=== PATIENT | male | born 1965 | race Caucasian/White ===

== ENCOUNTER 2017-08-05 01:31 | Emergency (ER) | payer OTHER ==
[~2017-08-05 01:31] MED LIST: CEPH500C3 PO; CLIN150 PO
[2017-08-05 01:36] VITALS: BP 132/75; PULSE 78; RESP 17; TEMP 97.7; O2SAT 97
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
== END 2017-08-05 07:07 | disposition home or self-care (01) ==
LOC: NEPD 01:31
DX: S20.211A Contusion of right front wall of thorax, initial encounter (principal); S00.81XA Abrasion of other part of head, initial encounter; F10.129 Alcohol abuse with intoxication, unspecified; F17.200 Nicotine dependence, unspecified, uncomplicated; V49.40XA Driver injured in collision with unspecified motor vehicles in traffic accident, initial encounter
CPT/HCPCS: 70450; 71045; 99284

== ENCOUNTER 2017-10-31 14:55 | Inpatient (IN) | payer SELFPAY ==
[~2017-10-31] VITALS: Ht 172.7 cm; Wt 74.9 kg
[2017-10-31 15:13] VITALS: BP 162/93; PULSE 102; RESP 18; TEMP 98.4; O2SAT 99
--- NOTE | 2017-10-31 15:54 | RADRPT ---
EXAM DATE/TIME: 10/31/2017 15:25 [facility] COMPARISON: No previous studies available for comparison. INDICATIONS : Left foot pain, walked with slides on. MEDICAL HISTORY : None. SURGICAL HISTORY : None. ENCOUNTER: Initial ACUITY: 1 day PAIN SCORE: 6/10 LOCATION: Left foot FINDINGS: There is an acute appearing, centrally non-displaced intra-articular fracture involving the base of t he great toe proximal phalanx. There appears to be a laceration of the overlying skin. There is dorsa l predominant forefoot soft tissue swelling. CONCLUSION: Intra-articular fracture of the great toe distal phalanx, minimally displaced. Davide Hernandez MD on October 31, 2017 at 15:50 Board Certified Radiologist. This report was verified electronically.
[2017-10-31] MEDS ORDERED: VANCOMYCIN INJ 1,250 MG in SODIUM CHLOR 0.9% 250 ML INJ 250 ML IV ONE (16:00)
[2017-10-31] MEDS ORDERED: MORPHINE SULFATE 4 MG/ML INJ IV PUSH ONE (16:00)
[2017-10-31 16:27] LABS: AUTOMATED NEUTROPHIL # 5.3 TH/MM3 (1.8-7.7); BASOPHIL % 0.6 % (0.0-2.0); EOSINOPHIL # 0.1 TH/MM3 (0-0.4); EOSINOPHIL % 1.8 % (0.0-4.0); HEMATOCRIT 40.1 % (39.0-51.0); HEMOGLOBIN 13.6 GM/DL (13.0-17.0); LYMPH % 19.8 % (9.0-44.0); LYMPHOCYTE # 1.5 TH/MM3 (1.0-4.8); MEAN CELL VOLUME 91.3 FL (80.0-100.0); MEAN CORPUSCULAR HEMOGLOBIN 30.9 PG (27.0-34.0); MEAN CORPUSCULAR HGB CONC 33.9 % (32.0-36.0); MEAN PLATELET VOLUME 8.7 FL (7.0-11.0); MONO % 8.8 % (0.0-8.0); MONOCYTE # 0.7 TH/MM3 (0-0.9); PLATELET COUNT 150 TH/MM3 (150-450); RED BLOOD COUNT 4.39 MIL/MM3 (4.50-5.90); RED CELL DISTRIBUTION WIDTH 13.6 % (11.6-17.2); WHITE BLOOD COUNT 7.7 TH/MM3 (4.0-11.0)
[2017-10-31 16:40] LABS: PROTHROMBIN TIME - PATIENT 10.5 SEC (9.8-11.6)
[2017-10-31 16:48] LABS: BICARBONATE 23.2 MEQ/L (21.0-32.0); C-REACTIVE PROTEIN 3.1 MG/DL (0.00-0.30); CALCIUM 8.6 MG/DL (8.5-10.1); CREATININE 0.79 MG/DL (0.60-1.30)
--- NOTE | 2017-10-31 16:57 | PD ---
HPI Chief Complaint: Skin Problem Time Seen by Provider: 15:29 Travel History International Travel<30 days: No Contact w/Intl Traveler<30days: No Traveled to known affect area: No History of Present Illness HPI Patient is a 52 year old male who comes in due to redness, swelling, pain to his left first toe. He says two weeks ago he was wearing sandals and he thinks he slipped and they cut his toe. He says that Monday he started noticing redness to the area and then noticed pus coming from the wound. He denies fever or chills. He has not taken anything for pain. He has not washed his feet since sustaining the wound. He denies chest pain or SOB. Severity is mild to moderate. PFSH Past Medical History Diminished Hearing: No Immunizations Current: Yes Tetanus Vaccination: < 5 Years Influenza Vaccination: No Social History Alcohol Use: Yes (beer 2-3xs / week ) Tobacco Use: Yes (1PPD ) Substance Use: No Allergies-Medications (Allergen,Severity, Reaction): Coded Allergies: shellfish derived (Unverified Adverse Reaction, Intermediate, Nausea/ Vomiting, 03/14/17) Reported Meds & Prescriptions Reported Meds & Active Scripts Active No Active Prescriptions or Reported Medications Review of Systems Except as stated in HPI: all other systems reviewed are Neg General / Constitutional: No: Fever, Chills HENT: No: Headaches, Lightheadedness Cardiovascular: No: Chest Pain or Discomfort Respiratory: No: Shortness of Breath Gastrointestinal: No: Nausea, Vomiting Musculoskeletal: Positive: Edema, Pain Skin: Positive Change in Pigmentation Neurologic: No: Weakness, Dizziness Physical Exam Narrative GENERAL: Awake and alert, in no acute distress. SKIN: Focused skin assessment warm/dry. HEAD: Atraumatic. Normocephalic. EYES: Pupils equal and round. No scleral icterus. ENT: Mucous membranes pink and moist. NECK: Trachea midline. No JVD. CARDIOVASCULAR: Regular rate and rhythm. No murmur appreciated. RESPIRATORY: No accessory muscle use. Clear to auscultation. Breath sounds equal bilaterally. GASTROINTESTINAL: Abdomen soft, non-tender, nondistended. Hepatic and splenic margins not palpable. MUSCULOSKELETAL: No obvious deformities. No clubbing. No cyanosis. Edema of the left foot. linear wound across the MTP with erythema, warmth and sanguinous fluid production. Mild erythema to the dorsum of the foot in a linear pattern. Pedal pulse intact. NEUROLOGICAL: Awake and alert. No obvious cranial nerve deficits. Motor grossly within normal limits. Normal speech. PSYCHIATRIC: Appropriate mood and affect; insight and judgment normal. Data Data Last Documented VS Vital Signs Date Time Temp Pulse Resp B/P (MAP) Pulse Ox O2 Delivery O2 Flow Rate FiO2 10/31/17 16:34 18 10/31/17 15:13 98.4 102 162/93 (116) 99 Orders Orders Complete Blood Count With Diff (10/31/17 15:15) Basic Metabolic Panel (Bmp) (10/31/17 15:15) Act Partial Throm Time (Ptt) (10/31/17 15:15) Prothrombin Time / Inr (Pt) (10/31/17 15:15) C-Reactive Protein (Crp) (10/31/17 15:15) Westergren Sedimentation Rate (10/31/17 15:15) Foot, Complete (Hmt8pwd) (10/31/17 ) Vancomycin Inj (Vancomycin Inj) (10/31/17 16:00) Morphine Inj (Morphine Inj) (10/31/17 16:00) Wound Culture And Gram Stain (10/31/17 15:50) Consult Podiatry (10/31/17 ) Mri Foot W&W/O Contrast (10/31/17 ) (Hub Use Only)Inp Phy Cons/Ref (10/31/17 ) Admit Order (Ed Use Only) (10/31/17 ) Admit To Inpatient (10/31/17 ) Vital Signs (Adult) Q4H (10/31/17 17:45) Activity Oob With Assistance (10/31/17 17:45) Sodium Chloride 0.9% Flush (Ns Flush) (10/31/17 17:45) Sodium Chloride 0.9% Flush (Ns Flush) (10/31/17 21:00) Basic Metabolic Panel (Bmp) (11/01/17 06:00) Complete Blood Count With Diff (11/01/17 06:00) Case Management Consult (10/31/17 17:45) Naloxone Inj (Narcan Inj) (10/31/17 17:45) Inpatient Certification (10/31/17 ) Vancomycin Consult Pharmacy (Vancomycin (10/31/17 17:45) Piperacil-Tazo 4.5 Gm Premix (Zosyn 4.5 (10/31/17 20:00) Labs Laboratory Tests Test 10/31/17 16:00 White Blood Count 7.7 TH/MM3 Red Blood Count 4.39 MIL/MM3 Hemoglobin 13.6 GM/DL Hematocrit 40.1 % Mean Corpuscular Volume 91.3 FL Mean Corpuscular Hemoglobin 30.9 PG Mean Corpuscular Hemoglobin Concent 33.9 % Red Cell Distribution Width 13.6 % Platelet Count 150 TH/MM3 Mean Platelet Volume 8.7 FL Neutrophils (%) (Auto) 69.0 % Lymphocytes (%) (Auto) 19.8 % Monocytes (%) (Auto) 8.8 % Eosinophils (%) (Auto) 1.8 % Basophils (%) (Auto) 0.6 % Neutrophils # (Auto) 5.3 TH/MM3 Lymphocytes # (Auto) 1.5 TH/MM3 Monocytes # (Auto) 0.7 TH/MM3 Eosinophils # (Auto) 0.1 TH/MM3 Basophils # (Auto) 0.0 TH/MM3 CBC Comment DIFF FINAL Differential Comment Erythrocyte Sedimentation Rate 38 mm/hr Prothrombin Time 10.5 SEC Prothromb Time International Ratio 1.0 RATIO Activated Partial Thromboplast Time 29.2 SEC Blood Urea Nitrogen 9 MG/DL Creatinine 0.79 MG/DL Random Glucose 93 MG/DL Calcium Level 8.6 MG/DL Sodium Level 138 MEQ/L Potassium Level 3.6 MEQ/L Chloride Level 107 MEQ/L Carbon Dioxide Level 23.2 MEQ/L Anion Gap 8 MEQ/L Estimat Glomerular Filtration Rate 103 ML/MIN C-Reactive Protein 3.10 MG/DL [facility] Medical Decision Making Medical Screen Exam Complete: Yes Emergency Medical Condition: Yes Medical Record Reviewed: Yes Differential Diagnosis Cellulitis versus osteomyelitis versus gangrene Narrative Course Patient is a 52 year old male who comes in complaining of pain and swelling to his left first toe. Exam shows swelling and erythema to the left first toe. IV established, labs sent. Labs show elevated ESR. XR shows a fracture beneath the area of infection. Dr. Almaraz of podiatry consulted due to concerns of osteomyelitis vs open fracture. Given IV antibiotics. will be admitted for further management. Diagnosis Primary Impression: Cellulitis of foot Admitting Information Admitting Physician Requests: Admit Scripts No Active Prescriptions or Reported Meds Umu Sheth MD Oct 31, 2017 16:57
[2017-10-31] MEDS ORDERED: NALOXONE HCL 0.4 MG/ML AMP IV PUSH PRN (17:45)
[2017-10-31] MEDS ORDERED: Vancomycin Consult Pharmacy 1 EA OTHER SCH (17:45)
[2017-10-31] MEDS ORDERED: SODIUM CHLORIDE 0.9% FLUSH 10 ML FLUSH IV FLUSH PRN (17:45)
[2017-10-31] MEDS ORDERED: GADODIAMIDE PF 287 MG/ML 5 ML VIAL (for RAD MRI) IVCONTRAST ONE (19:09)
[2017-10-31 19:33] VITALS: BP 135/77; PULSE 84; RESP 18; O2SAT 98
[2017-10-31] MEDS: PIPERACIL-TAZO 4.5 GM PREMIX 100 ML IV SCH (19:33)
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
--- NOTE | 2017-10-31 20:03 | RADRPT ---
EXAM DATE/TIME: 10/31/2017 18:42 [facility] COMPARISON: No previous studies available for comparison. INDICATIONS : Osteomyelitis. Laceration of left great toe. CONTRAST: 15 cc Omniscan (gadodiamide) IV MEDICAL HISTORY : None. SURGICAL HISTORY : None. ENCOUNTER: Subsequent ACUITY: 2 weeks PAIN SCORE: 3/10 LOCATION: Left great toe. TECHNIQUE: Multiplanar, multisequence MRI examination was performed without contrast and after the intravenous a dministration of gadolinium. FINDINGS: There is a fracture of the distal phalanx of the great toe with associated marrow edema and also james ow enhancement postcontrast. There is also small amount of marrow edema in the distal portion of the proximal phalanx probably from a bone contusion. There is subcutaneous edema in the foot especially i n the forefoot on the dorsum of the foot. CONCLUSION: 1. Marrow edema and enhancement in the fractured distal phalanx of the great toe and probable contusi on in the distal portion of the proximal phalanx. Difficult to assess for osteomyelitis given the pre sence of the fracture which is often associated with edema and enhancement. However there is soft tis sarika swelling of the foot and subcutaneous edema space are prominent over the dorsum of the foot. Shai Gregg MD on October 31, 2017 at 19:58 Board Certified Radiologist. This report was verified electronically.
[2017-10-31] MEDS: SODIUM CHLORIDE 0.9% FLUSH 10 ML FLUSH IV FLUSH SCH (21:00)
[2017-10-31 23:38] VITALS: BP 140/89; PULSE 82; RESP 16; TEMP 98.8; O2SAT 98
[2017-11-01] VITALS (8 sets, daily range): BP systolic 113–138; BP diastolic 69–88; PULSE 64–86; RESP 16–18; TEMP 97.6–99; O2SAT 93–99
[2017-11-01] MEDS: PIPERACIL-TAZO 4.5 GM PREMIX 100 ML IV SCH ×4 (02:17→20:03)
[2017-11-01] MEDS ORDERED: VANCOMYCIN INJ 900 MG in SODIUM CHLOR 0.9% 250 ML INJ 250 ML IV SCH (04:00)
[2017-11-01 07:03] LABS: AUTOMATED NEUTROPHIL # 5.1 TH/MM3 (1.8-7.7); BASOPHIL % 0.5 % (0.0-2.0); EOSINOPHIL # 0.2 TH/MM3 (0-0.4); EOSINOPHIL % 2.2 % (0.0-4.0); HEMATOCRIT 37.8 % (39.0-51.0); HEMOGLOBIN 12.7 GM/DL (13.0-17.0); LYMPH % 21.3 % (9.0-44.0); LYMPHOCYTE # 1.6 TH/MM3 (1.0-4.8); MEAN CELL VOLUME 92.1 FL (80.0-100.0); MEAN CORPUSCULAR HGB CONC 33.7 % (32.0-36.0); MEAN PLATELET VOLUME 9.3 FL (7.0-11.0); MONO % 10.1 % (0.0-8.0); MONOCYTE # 0.8 TH/MM3 (0-0.9); NEUT % 65.9 % (16.0-70.0); PLATELET COUNT 141 TH/MM3 (150-450); RED BLOOD COUNT 4.11 MIL/MM3 (4.50-5.90); RED CELL DISTRIBUTION WIDTH 13.8 % (11.6-17.2); WHITE BLOOD COUNT 7.7 TH/MM3 (4.0-11.0)
[2017-11-01 07:26] LABS: BICARBONATE 24.7 MEQ/L (21.0-32.0); CALCIUM 8.5 MG/DL (8.5-10.1); CREATININE 0.67 MG/DL (0.60-1.30)
--- NOTE | 2017-11-01 08:31 | MB ---
cc: Keron Almaraz DPM DATE: 11/01/2017 REASON FOR CONSULTATION: Left foot fracture, laceration infection. HISTORY OF PRESENT ILLNESS: This is a 52-year-old male who reported 2 weeks ago walking in sandals for a very long period of time causing an abrasion. Within the last 5-7 days, he had significant redness and pain. He was trying a topical antibiotic cream and it was not working and continued to worsen. Upon being evaluated in the ED, there is noted to be a fracture and infection, which is worrisome for osteomyelitis. PAST MEDICAL HISTORY: The patient denies. PAST SURGICAL HISTORY: Denies. ALLERGIES: SHELLFISH, POSSIBLE IODINE. SOCIAL HISTORY: He smokes about a pack a day. He drinks alcohol 2-3 times a week. He denies drug use. INPATIENT MEDICATIONS: He is receiving vancomycin and Zosyn. Please see complete medication list in chart. PHYSICAL EXAMINATION: VITAL SIGNS: Temperature is 98.3, pulse rate 86, respiratory rate 18, blood pressure 133/79. He is sating 95% on room air. GENERAL: This is alert and oriented male seen bedside exhibiting nonlabored respirations. He appears to have a nonproductive cough. EXTREMITIES: Left lower extremity is examined. There is noted to be an eschar with significant periwound erythema and edema at the dorsal aspect of the left hallux with mild redness that extends to the dorsum of the foot. There is pain upon attempting range of motion. There is no soft tissue crepitus noted. There is no odor. Pedal pulses are fully palpable. Sensation appears to be intact to light touch and deep pressure. No malalignment or instability noted. LABORATORY FINDINGS: White blood cells 7.7, hemoglobin and hematocrit 12 and 37, platelet count 141. ESR 38. Chem-7: Sodium 140, potassium 3.6, chloride 107, CO2 of 24.7, BUN is 8, creatinine 0.67, random glucose is 79. Coagulation profile: PT 10.5, INR 1.0. IMAGING STUDIES: X-ray of the foot: An intra-articular fracture involving the great toe distal phalanx, minimally displaced. Foot MRI: Marrow edema and enhancement of the fracture site of the great toe, probable contusion. Difficult to assess if osteomyelitis within the fracture. ASSESSMENT AND PLAN: Left hallux abrasion, cellulitis, fracture, possible osteomyelitis. The plan incision and drainage, debridement with bone biopsy to take place tomorrow. The patient will be ordered n.p.o. after midnight tonight. Continue IV antibiotics. The patient was counseled on the need for smoking cessation to increase healing. The patient was educated on risks and benefits of surgery including, but not limited to, need for more surgery at a later date, need for long-term IV antibiotics and possible complications of long-term IV antibiotics. The patient agrees. I will see the patient for surgery tomorrow approximately noon. CASPER Aguilar/ELI , 08:14 AM , 08:30 AM
--- NOTE | 2017-11-01 08:35 | HHI.PR ---
Subjective Remarks This is a pleasant 52 y/o Male who came to ER with Left Big toe cellulitis, Tobacco dependence of One pack of cigarettes daily, alcohol abuse EtOH Occasional, Seen in his bedroom, Podiatry specialist following and will perform I and D, with Bone biopsy for tomorrow. no nausea, vomit or diarrhea. Objective Vital Signs Date Time Temp Pulse Resp B/P (MAP) Pulse Ox O2 Delivery O2 Flow Rate FiO2 11/01/17 07:10 98.3 86 18 133/79 (97) 95 11/01/17 04:43 65 11/01/17 04:03 99.0 65 17 127/72 (90) 96 11/01/17 00:01 77 10/31/17 23:38 98.8 82 16 140/89 (106) 98 10/31/17 19:33 84 18 135/77 (96) 98 Room Air 10/31/17 16:34 18 10/31/17 15:13 98.4 102 18 162/93 (116) 99 I/O 10/31/17 10/31/17 10/31/17 11/01/17 11/01/17 11/01/17 07:00 15:00 23:00 07:00 15:00 23:00 Intake Total 250 ml Balance 250 ml Intake IV Total 250 ml Result Diagram: 11/01/17 0536 11/01/17 0536 Imaging Last Impressions Foot X-Ray 10/31/17 0000 Signed Impressions: Service Date/Time: Tuesday, October 31, 2017 15:25 - CONCLUSION: Intra- articular fracture of the great toe distal phalanx, minimally displaced. Davide Hernandez MD Foot MRI 10/31/17 0000 Signed Impressions: Service Date/Time: Tuesday, October 31, 2017 18:42 - CONCLUSION: 1. Marrow edema and enhancement in the fractured distal phalanx of the great toe and probable contusion in the distal portion of the proximal phalanx. Difficult to assess for osteomyelitis given the presence of the fracture which is often associated with edema and enhancement. However there is soft tissue swelling of the foot and subcutaneous edema space are prominent over the dorsum of the foot. Shai Gregg MD Procedures None Other Results Laboratory Tests Test 10/31/17 16:00 11/01/17 05:36 Erythrocyte Sedimentation Rate 38 mm/hr Prothrombin Time 10.5 SEC Prothromb Time International Ratio 1.0 RATIO Activated Partial Thromboplast Time 29.2 SEC C-Reactive Protein 3.10 MG/DL White Blood Count 7.7 TH/MM3 Red Blood Count 4.11 MIL/MM3 Hemoglobin 12.7 GM/DL Hematocrit 37.8 % Mean Corpuscular Volume 92.1 FL Mean Corpuscular Hemoglobin 31.0 PG Mean Corpuscular Hemoglobin Concent 33.7 % Red Cell Distribution Width 13.8 % Platelet Count 141 TH/MM3 Mean Platelet Volume 9.3 FL Neutrophils (%) (Auto) 65.9 % Lymphocytes (%) (Auto) 21.3 % Monocytes (%) (Auto) 10.1 % Eosinophils (%) (Auto) 2.2 % Basophils (%) (Auto) 0.5 % Neutrophils # (Auto) 5.1 TH/MM3 Lymphocytes # (Auto) 1.6 TH/MM3 Monocytes # (Auto) 0.8 TH/MM3 Eosinophils # (Auto) 0.2 TH/MM3 Basophils # (Auto) 0.0 TH/MM3 CBC Comment DIFF FINAL Differential Comment Blood Urea Nitrogen 8 MG/DL Creatinine 0.67 MG/DL Random Glucose 79 MG/DL Calcium Level 8.5 MG/DL Sodium Level 140 MEQ/L Potassium Level 3.6 MEQ/L Chloride Level 107 MEQ/L Carbon Dioxide Level 24.7 MEQ/L Anion Gap 8 MEQ/L Estimat Glomerular Filtration Rate 124 ML/MIN Objective Remarks GENERAL: No acute distress. SKIN: Redness, swelling blanching erythema of left foot dorsal surface, open wound on his Left first toe. HEAD: Atraumatic. Normocephalic. No temporal or scalp tenderness. EYES: No scleral icterus. No injection or drainage. ENT: Nose without bleeding, purulent drainage or septal hematoma. NECK: Trachea midline. No JVD CARDIOVASCULAR: Regular rate and rhythm without murmurs, gallops, or rubs. RESPIRATORY: Clear to auscultation. Breath sounds equal bilaterally. GASTROINTESTINAL: Abdomen soft, non-tender, nondistended. No guarding. MUSCULOSKELETAL: Extremities without clubbing, cyanosis, left foot dorsal surface with significant edema. Skin abrasion/ open cut at the proximal end NEUROLOGICAL: Awake and alert.Motor and sensory grossly within normal limits. Normal speech. Medications and IVs Current Medications Medications (Trade) Dose Ordered Sig/Dirk Route Start Time Stop Time Status Last Admin (NS Flush) 2 ml UNSCH PRN IV FLUSH 10/31/17 17:45 (NS Flush) 2 ml BID IV FLUSH 10/31/17 21:00 10/31/17 21:00 (Narcan Inj) 0.4 mg UNSCH PRN IV PUSH 10/31/17 17:45 Pharmacy Profile Note 0 ml @ 0 mls/hr UNSCH OTHER 10/31/17 17:45 Piperacillin Sod/ Tazobactam Sod 100 ml @ 200 mls/hr Q6H IV 10/31/17 20:00 11/01/17 02:17 Vancomycin HCl 900 mg/Sodium Chloride 259 ml @ 250 mls/hr Q8H IV 11/01/17 04:00 11/01/17 03:54 Miscellaneous Information SPECIFIC LAB TO BE DRAWN:VANCO TROUGH DATE TO BE DR... ONCE ONCE .XX 11/01/17 19:45 11/01/17 19:46 A/P Assessment and Plan 1. Left Hallux Abrasion, Cellulitis, Fracture and Possible osteomyelitis. X ray showed: Left big toe and left foot dorsal surface soft tissue infection, Possible left great toe osteomyelitis. Fracture of left great toe distal phalanx Podiatry specialist following, Doctor Keron Almaraz scheduled for tomorrow for I and D and bone biopsy. continue Zosyn and Vancomycin, [place] depend of clinical course. 2. Tobacco dependence strongly recommended to stop smoking, continue Bronchodilator, Mucolytic and incentive spirometry refuse nicotine replacement. DVT prophylaxis with Lovenox postprocedure. Discussed Condition With patient and nurse. Discharge Planning Once cleared by Podiatry specialist. Jimmy Correia MD Nov 01, 2017 08:35
[2017-11-01] MEDS: SODIUM CHLORIDE 0.9% FLUSH 10 ML FLUSH IV FLUSH SCH ×2 (08:48→20:03)
[2017-11-01 10:47] LABS: CHOLESTEROL 128 MG/DL (120-200); TRIGLYCERIDES 77 MG/DL (42-150)
[2017-11-01 10:56] LABS: CHOLESTEROL/ HDL RATIO 2.94 RATIO; FREE T4 1.05 NG/DL (0.76-1.46); HDL CHOLESTEROL 43.5 MG/DL (40.0-60.0); LDL CHOLESTEROL 69 MG/DL (0-99)
[2017-11-01] MEDS: VANCOMYCIN INJ 1,500 MG in SODIUM CHLORID 0.9% 500 ML INJ 500 ML IV SCH ×2 (12:06→23:06)
[2017-11-01] MEDS: RESP: ALBUTEROL 2.5 MG/IPRATROPIUM 0.5 MG NEB (SCH) NEB ×2 (16:00→20:00)
[2017-11-01] MEDS ORDERED: PHARMACY ORDERED LAB ONE (19:45)
[2017-11-01] MEDS: guaiFENesin E.R. 600 MG TAB PO SCH (20:03)
[2017-11-01 20:42] LABS: HEMOGLOBIN A1C 5.6 % (4.3-6.0)
[2017-11-02] VITALS (7 sets, daily range): BP systolic 119–136; BP diastolic 60–78; PULSE 52–80; RESP 16–20; TEMP 97.7–98.3; O2SAT 96–98
[2017-11-02] MEDS: RESP: ALBUTEROL 2.5 MG/IPRATROPIUM 0.5 MG NEB (SCH) NEB ×7 (00:21→23:36)
[2017-11-02] MEDS: PIPERACIL-TAZO 4.5 GM PREMIX 100 ML IV SCH ×4 (02:08→20:15)
[2017-11-02] MEDS ORDERED: CHLORHEXIDINE GLUCONATE 2 % 1 PACK (2 CLOTHS) TOPICAL PRN (05:45)
[2017-11-02] MEDS ORDERED: SODIUM CHLORID 0.9% 500 ML IV PRN (05:45)
[2017-11-02] MEDS ORDERED: LACTATED RINGER'S 1000 ML IV PRN (05:45)
[2017-11-02] MEDS ORDERED: POVIDONE IODINE 5% (ANTISEPSIS KIT) 4 APPLICATIONS EACH NARE PRN (05:45)
[2017-11-02] MEDS: SODIUM CHLORIDE 0.9% FLUSH 10 ML FLUSH IV FLUSH SCH ×2 (08:35→20:15)
[2017-11-02] MEDS: guaiFENesin E.R. 600 MG TAB PO SCH ×2 (08:35→20:15)
[2017-11-02] MEDS: VANCOMYCIN INJ 1,500 MG in SODIUM CHLORID 0.9% 500 ML INJ 500 ML IV SCH ×2 (10:41→23:27)
[2017-11-02] MEDS ORDERED: PHARMACY ORDERED LAB ONE (10:45)
[2017-11-02] MEDS ORDERED: PROPOFOL 200 MG/20 ML AMP IV ONE (12:00)
[2017-11-02] MEDS ORDERED: ePHEDrine/NS 25 MG/5 ML SYRINGE IV ONE (12:00)
[2017-11-02] MEDS ORDERED: ONDANSETRON HCL 4 MG/2 ML VIAL IV ONE (12:00)
[2017-11-02] MEDS ORDERED: LIDOCAINE HCL 1% PF 5 ML SYRINGE OTHER ONE (12:00)
[2017-11-02] MEDS ORDERED: DEXAMETHASONE SOD PHOS 4 MG/ML VIAL IV ONE (12:00)
[2017-11-02] MEDS ORDERED: BUPIVACAINE HCL PF 0.5% 30 ML VIAL ONE (15:14)
[2017-11-02] MEDS ORDERED: NEOMYCIN/POLYMYXIN 1 ML G.U. IRRIGANT ONE (15:15)
[2017-11-02] MEDS ORDERED: DO NOT ADM ANY ANTICOAGULANT DRUGS PRN (16:21)
[2017-11-02] MEDS ORDERED: MIDAZOLAM HCL 2 MG/2 ML VIAL ONE (16:27)
--- NOTE | 2017-11-02 16:45 | HHI.PR ---
Immediate Post Op Note Procedure Date: Nov 02, 2017 Pre Op Diagnosis: Left foot cellulitis possible osteomyelitis proximal phalanx fracture Post Op Diagnosis: Same Surgeon: Keron Combs Sheet Metal Insulator(s): Scrub Procedure: Left foot Incision bone cortex left proximal phalanx, 1st MPJ Capsulotomy. Findings: Under mild sedation the patient was brought in the OR and placed on the operative table in the supine position. Following the induction of LMA general anesthesia the patient's left foot was then scrubbed prepped and draped in usual aseptic fashion. Left foot received a digit block consisting of 10 cc 0.25% Marcaine plain. A linear incision was made over the dorsal aspect of the first digit proximal phalanx left foot. Sharp and blunt dissection was carried down to the subperiosteal layer. A linear incision was made in the periosteum, bone trocar was introduced removing bone specimen and a swab of the bone specimen took place. The contents of deep to the surface were examined there is no obvious chi pus, ischemia, or soft bony cortical nature. A linear incision was also made at the level of the first MPJ and there was noted to be normal joint fluid with no cloudy visualization. The wound bone and joint capsule was flushed with copious amounts of normal saline. Loosely coapted utilizing nylon. Good bleeding noted at surgical site. Bovie and ligation of venous structures took place as deemed appropriate. A bulky bandage placed. Continue to monitor wound, culture and bone biopsy. No further surgery planned at this point await clinical improvement. Complications: None Specimen(s) removed: Bone for pathological analysis, bone swab for microbial analysis Estimated blood loss: Less than 10 ML's Anesthesia: General, Local Drains: None IVF Patient to: SDS Implant/Devices: SEE IMPLANT LOG (if applicable) Date/Time of Procedure: SEE SURGICAL CARE RECORD Keron Combs DPM Nov 02, 2017 16:45
[2017-11-02] MEDS ORDERED: ACETAMINOPHEN/HYDROcodone 325 MG/5 MG TAB PO PRN (22:15)
[2017-11-03] VITALS (8 sets, daily range): BP systolic 129–194; BP diastolic 66–89; PULSE 60–112; RESP 14–20; TEMP 98–98.7; O2SAT 94–99
[2017-11-03] MEDS: PIPERACIL-TAZO 4.5 GM PREMIX 100 ML IV SCH ×4 (01:45→20:33)
[2017-11-03] MEDS: RESP: ALBUTEROL 2.5 MG/IPRATROPIUM 0.5 MG NEB (SCH) NEB ×6 (03:22→23:58)
[2017-11-03] MEDS: SODIUM CHLORIDE 0.9% FLUSH 10 ML FLUSH IV FLUSH SCH ×2 (08:18→20:33)
[2017-11-03] MEDS: guaiFENesin E.R. 600 MG TAB PO SCH ×2 (08:18→20:32)
--- NOTE | 2017-11-03 09:17 | HHI.PR ---
Addendum to Inpatient Note Additional Information Delayed entry for 11/02/2017 Attempted to see patient twice. Patient was still in OR. Will see patient on 11/03. Kenisha Sherman DO Nov 03, 2017 9:17 am
[2017-11-03] MEDS: VANCOMYCIN INJ 1,500 MG in SODIUM CHLORID 0.9% 500 ML INJ 500 ML IV SCH ×2 (11:09→22:10)
--- NOTE | 2017-11-03 11:42 | EKG ---
Date Performed: 11/01/2017 Time Performed: 11:52:17 PTAGE: 52 years EKG: Sinus rhythm MARKED LEFT AXIS DEVIATION POSSIBLE RIGHT VENTRICULAR CONDUCTION DELAY NONSPECIFIC T-WAVE ABNORMALIT Y ABNORMAL ECG PREVIOUS TRACING : 10/30/2015 00.47 Since the prior tracing, the anterolateral T-wave changes a re new. The findings are nonspecific, but clinical correlation is recommended to exclude myocardial i schemia. DOCTOR: Nette Joshi Interpretating Date/Time 11/03/2017 11:41:07
[2017-11-03] MEDS ORDERED: cloNIDine HCL 0.1 MG TAB PO PRN (17:45)
[2017-11-03] MEDS ORDERED: ONDANSETRON HCL 4 MG/2 ML VIAL IVP PRN (17:45)
--- NOTE | 2017-11-03 18:19 | HHI.PR ---
Subjective Remarks Follow-up for left foot cellulitis possibly osteomyelitis. Patient underwent surgery yesterday. Currently doing well. No fever or chills. Objective Vitals Vital Signs Date Time Temp Pulse Resp B/P (MAP) Pulse Ox O2 Delivery O2 Flow Rate FiO2 11/03/17 17:54 98.0 77 14 149/76 (100) 96 11/03/17 16:00 98.0 101 19 194/89 (124) 94 11/03/17 12:00 98.2 60 19 151/80 (103) 97 11/03/17 09:18 70 11/03/17 08:00 98.6 112 19 156/83 (107) 95 11/03/17 04:00 98.3 68 20 144/67 (92) 97 11/03/17 00:00 98.6 65 20 129/66 (87) 99 11/03/17 00:00 68 11/02/17 20:00 97.7 80 20 125/60 (81) 97 I/O 11/02/17 11/02/17 11/02/17 11/03/17 11/03/17 11/03/17 07:00 15:00 23:00 07:00 15:00 23:00 Intake Total 100 ml 1250 ml 1335 ml 715 ml Output Total 5 ml Balance 100 ml 1245 ml 1335 ml 715 ml Intake Oral 720 ml IV Total 100 ml 1250 ml 615 ml 715 ml Output Estimated Blood Loss 5 ml # Voids 3 # Bowel Movements 0 Result Diagram: 11/01/17 0536 11/01/17 0536 Imaging Last Impressions Foot X-Ray 10/31/17 0000 Signed Impressions: Service Date/Time: Tuesday, October 31, 2017 15:25 - CONCLUSION: Intra- articular fracture of the great toe distal phalanx, minimally displaced. Davide Hernandez MD Foot MRI 10/31/17 0000 Signed Impressions: Service Date/Time: Tuesday, October 31, 2017 18:42 - CONCLUSION: 1. Marrow edema and enhancement in the fractured distal phalanx of the great toe and probable contusion in the distal portion of the proximal phalanx. Difficult to assess for osteomyelitis given the presence of the fracture which is often associated with edema and enhancement. However there is soft tissue swelling of the foot and subcutaneous edema space are prominent over the dorsum of the foot. Shai Gregg MD Objective Remarks GENERAL: Alert, oriented 3, NAD. SKIN: Warm and dry. HEAD: Normocephalic. EYES: No scleral icterus. No injection or drainage. NECK: Supple, trachea midline. No JVD or lymphadenopathy. CARDIOVASCULAR: Regular rate and rhythm without murmurs, gallops, or rubs. RESPIRATORY: Breath sounds equal bilaterally. No accessory muscle use. GASTROINTESTINAL: Abdomen soft, non-tender, nondistended. MUSCULOSKELETAL: No cyanosis, or edema. Status post surgery of the left foot. Currently wrapped in dressing. BACK: Nontender without obvious deformity. No CVA tenderness. Procedures 11/02/2017 Left foot Incision bone cortex left proximal phalanx, 1st MPJ Capsulotomy. A/P Problem List: (1) Cellulitis of foot ICD Code: L03.119 - Cellulitis of foot Status: Acute Assessment and Plan Mr. Barrios is a 52-year-old male with no significant medical history who sustained left foot injury when he kicked his foot during dream and subsequently developed infection. ED workup indicated fracture and infection of the left foot. Left hallux cellulitis Possible osteomyelitis Patient went podiatry surgery I&D on 11/02/2017. Will continue vancomycin and Zosyn Wound culture is growing Streptococcus group B Patient is afebrile and did not have any leukocytosis. He does not have diabetes. When cleared by podiatry, we can likely discharge patient on oral antibiotics. Full code. Ambulation. Kenisha Sherman DO Nov 03, 2017 6:19 pm
[2017-11-04 00:10] VITALS: BP 155/86; PULSE 59; RESP 18; TEMP 98.4; O2SAT 98
[2017-11-04] MEDS: PIPERACIL-TAZO 4.5 GM PREMIX 100 ML IV SCH ×4 (02:33→21:48)
[2017-11-04] MEDS: RESP: ALBUTEROL 2.5 MG/IPRATROPIUM 0.5 MG NEB (SCH) NEB ×6 (03:57→23:53)
[2017-11-04 08:00] VITALS: BP 138/70; PULSE 68; RESP 17; TEMP 98.4; O2SAT 97
[2017-11-04] MEDS: SODIUM CHLORIDE 0.9% FLUSH 10 ML FLUSH IV FLUSH SCH ×2 (08:12→21:48)
[2017-11-04] MEDS: guaiFENesin E.R. 600 MG TAB PO SCH ×2 (08:12→21:48)
--- NOTE | 2017-11-04 09:12 | PD.POD ---
Subjective Pain score: 3 Remarks Doing well no events overnight Past Med/Surg/Social History Social History Smoking Status: Former Smoker Objective Vital Signs Vital Signs Date Time Temp Pulse Resp B/P (MAP) Pulse Ox O2 Delivery O2 Flow Rate FiO2 11/04/17 08:00 98.4 68 17 138/70 (92) 97 11/04/17 00:10 98.4 59 18 155/86 (109) 98 11/03/17 20:00 98.7 64 20 139/83 (101) 96 11/03/17 17:54 98.0 77 14 149/76 (100) 96 11/03/17 16:00 98.0 101 19 194/89 (124) 94 11/03/17 12:00 98.2 60 19 151/80 (103) 97 11/03/17 09:18 70 Coded Allergies: shellfish derived (Unverified Adverse Reaction, Intermediate, Nausea/ Vomiting, 03/14/17) Medications and IVs Administered Medications Medications (Trade) Dose Ordered Sig/Dirk Route PRN Reason Start Time Stop Time Status Last Admin Dose Admin Sodium Chloride (NS Flush) 2 ml BID IV FLUSH 10/31/17 21:00 11/03/17 20:33 Piperacillin Sod/ Tazobactam Sod 100 ml @ 200 mls/hr Q6H IV 10/31/17 20:00 11/04/17 08:12 Vancomycin HCl 1500 mg/Sodium Chloride 515 ml @ 250 mls/hr Q12H IV 11/01/17 11:00 11/03/17 22:10 Albuterol/ Ipratropium (Duoneb Neb) 1 ampule Q4HR NEB NEB 11/01/17 16:00 11/04/17 07:44 Guaifenesin (Mucinex Er) 600 mg BID PO 11/01/17 21:00 11/04/17 08:12 Other Results Microbiology Date/Time Source Procedure Growth Status 11/02/17 16:15 Wound Foot Fungal Smear - Final NO FUNGAL ELEMENTS SEEN. Resulted 11/02/17 16:15 Wound Foot Fungal Culture Pending Resulted 11/02/17 16:15 Wound Foot Acid Fast Stain - Final NO ACID FAST BACILLI SEEN Resulted 11/02/17 16:15 Wound Foot Mycobacterial Culture Pending Resulted 11/02/17 16:15 Wound Foot Gram Stain - Final Resulted 11/02/17 16:15 Wound Foot Wound Culture - Preliminary RESULTS PENDING Resulted Bone biopsy pending Objective Remarks Right lower extremity. Right hallux with linear incision over first MPJ IPJ minimal drainage, superficial fibrotic ulcer noted with viable granular base. Decreased erythema minimal pain toe is warm good range of motion no crepitus no ascending cellulitis very localized redness noted. Assessment & Plan A/P Left foot cellulitis possible osteomyelitis proximal phalanx fracture SP Left foot Incision bone cortex left proximal phalanx, 1st MPJ Capsulotomy. Bandages changed. Doing well. Awaiting micro-and pathology final before DC recommendations. No further surgery planned at this point . Continue antibiotics. Anticipate DC Monday, follow-up in office 1 week. Nursing to change bandage before leaving the hospital. Keron Almaraz DPM Nov 04, 2017 09:12
--- NOTE | 2017-11-04 10:31 | HHI.PR ---
Subjective Remarks Follow-up for left foot cellulitis possibly osteomyelitis. Patient is doing well. No fever, chills. Ambulating well. Podiatry following. Objective Vitals Vital Signs Date Time Temp Pulse Resp B/P (MAP) Pulse Ox O2 Delivery O2 Flow Rate FiO2 11/04/17 08:00 98.4 68 17 138/70 (92) 97 11/04/17 00:10 98.4 59 18 155/86 (109) 98 11/03/17 20:00 98.7 64 20 139/83 (101) 96 11/03/17 17:54 98.0 77 14 149/76 (100) 96 11/03/17 16:00 98.0 101 19 194/89 (124) 94 11/03/17 12:00 98.2 60 19 151/80 (103) 97 I/O 11/03/17 11/03/17 11/03/17 11/04/17 11/04/17 11/04/17 07:00 15:00 23:00 07:00 15:00 23:00 Intake Total 1335 ml 1575 ml 1395 ml 20 ml Balance 1335 ml 1575 ml 1395 ml 20 ml Intake Oral 720 ml 760 ml 780 ml IV Total 615 ml 815 ml 615 ml 20 ml # Voids 3 6 3 # Bowel Movements 0 Result Diagram: 11/01/17 0536 11/01/17 0536 Objective Remarks GENERAL: Alert, oriented 3, NAD. SKIN: Warm and dry. HEAD: Normocephalic. EYES: No scleral icterus. No injection or drainage. NECK: Supple, trachea midline. No JVD or lymphadenopathy. CARDIOVASCULAR: Regular rate and rhythm without murmurs, gallops, or rubs. RESPIRATORY: Breath sounds equal bilaterally. No accessory muscle use. GASTROINTESTINAL: Abdomen soft, non-tender, nondistended. MUSCULOSKELETAL: No cyanosis, or edema. Status post surgery of the left foot. Currently wrapped in dressing. BACK: Nontender without obvious deformity. No CVA tenderness. Procedures 11/02/2017 Left foot Incision bone cortex left proximal phalanx, 1st MPJ Capsulotomy. A/P Problem List: (1) Cellulitis of foot ICD Code: L03.119 - Cellulitis of foot Status: Acute Assessment and Plan Mr. Barrios is a 52-year-old male with no significant medical history who sustained left foot injury when he kicked his foot during dream and subsequently developed infection. ED workup indicated fracture and infection of the left foot. Left hallux cellulitis Possible osteomyelitis Patient went podiatry surgery I&D on 11/02/2017. Will continue Zosyn and discontinue Vancomycin. Wound culture is growing Streptococcus group B Patient is afebrile and did not have any leukocytosis. He does not have diabetes. If bone biopsy does not show any evidence of osteomyelitis, we can likely discharge patient on Oral abx such as Levaquin. Full code. Ambulation. Kenisha Sherman DO Nov 04, 2017 10:31 am
[2017-11-04] MEDS: PHARMACY ORDERED LAB ONE (10:45)
[2017-11-04 12:00] VITALS: BP 135/86; PULSE 62; RESP 18; TEMP 98.3; O2SAT 96
[2017-11-04 16:00] VITALS: BP 125/80; PULSE 68; RESP 18; TEMP 98.2; O2SAT 96
[2017-11-04 20:00] VITALS: BP 119/76; PULSE 80; RESP 18; TEMP 98.9; O2SAT 97
[2017-11-05] VITALS: BP 113/66; PULSE 77; RESP 18; TEMP 97.6; O2SAT 98
[2017-11-05] MEDS: PIPERACIL-TAZO 4.5 GM PREMIX 100 ML IV SCH ×4 (02:24→19:55)
[2017-11-05 08:00] VITALS: BP 116/74; PULSE 86; RESP 18; TEMP 97.9; O2SAT 97
[2017-11-05] MEDS: RESP: ALBUTEROL 2.5 MG/IPRATROPIUM 0.5 MG NEB (SCH) NEB ×3 (08:19→15:41)
[2017-11-05] MEDS: guaiFENesin E.R. 600 MG TAB PO SCH ×2 (08:27→19:55)
[2017-11-05] MEDS: SODIUM CHLORIDE 0.9% FLUSH 10 ML FLUSH IV FLUSH SCH ×2 (09:00→19:56)
--- NOTE | 2017-11-05 10:25 | HHI.PR ---
Subjective Remarks Follow-up for left foot cellulitis possibly osteomyelitis. Ambulating well, no acute concerns. No fever, chills. Objective Vitals Vital Signs Date Time Temp Pulse Resp B/P (MAP) Pulse Ox O2 Delivery O2 Flow Rate FiO2 11/05/17 08:00 97.9 86 18 116/74 (88) 97 11/05/17 00:00 97.6 77 18 113/66 (82) 98 11/04/17 20:00 98.9 80 18 119/76 (90) 97 11/04/17 16:00 98.2 68 18 125/80 (95) 96 11/04/17 12:00 98.3 62 18 135/86 (102) 96 I/O 11/04/17 11/04/17 11/04/17 11/05/17 11/05/17 11/05/17 07:00 15:00 23:00 07:00 15:00 23:00 Intake Total 1395 ml 20 ml 1600 ml 100 ml Balance 1395 ml 20 ml 1600 ml 100 ml Intake Oral 780 ml 1300 ml IV Total 615 ml 20 ml 300 ml 100 ml # Voids 3 3 2 # Bowel Movements 1 Result Diagram: 11/01/17 0536 11/01/17 0536 Objective Remarks GENERAL: Alert, oriented 3, NAD. SKIN: Warm and dry. HEAD: Normocephalic. EYES: No scleral icterus. No injection or drainage. NECK: Supple, trachea midline. No JVD or lymphadenopathy. CARDIOVASCULAR: Regular rate and rhythm without murmurs, gallops, or rubs. RESPIRATORY: Breath sounds equal bilaterally. No accessory muscle use. GASTROINTESTINAL: Abdomen soft, non-tender, nondistended. MUSCULOSKELETAL: No cyanosis, or edema. Status post surgery of the left foot. Currently wrapped in dressing. BACK: Nontender without obvious deformity. No CVA tenderness. Procedures 11/02/2017 Left foot Incision bone cortex left proximal phalanx, 1st MPJ Capsulotomy. A/P Problem List: (1) Cellulitis of foot ICD Code: L03.119 - Cellulitis of foot Status: Acute Assessment and Plan Mr. Barrios is a 52-year-old male with no significant medical history who sustained left foot injury when he kicked his foot during dream and subsequently developed infection. ED workup indicated fracture and infection of the left foot. Left hallux cellulitis Possible osteomyelitis Patient went podiatry surgery I&D on 11/02/2017. Will continue Zosyn and discontinue Vancomycin. Wound culture is growing Streptococcus group B Patient is afebrile and did not have any leukocytosis. He does not have diabetes. If bone biopsy does not show any evidence of osteomyelitis, we can likely discharge patient on Oral abx such as Levaquin. Full code. Ambulation. Likely discharge on 11/06/2017 or 11/07/2017. Kenisha Sherman DO Nov 05, 2017 10:25 am
[2017-11-05 12:00] VITALS: BP 121/75; PULSE 87; RESP 18; TEMP 97.6; O2SAT 95
[2017-11-05 16:00] VITALS: BP 115/62; PULSE 75; RESP 18; TEMP 98.4; O2SAT 95
[2017-11-05 20:00] VITALS: BP 111/61; PULSE 71; RESP 16; TEMP 98.6; O2SAT 96
[2017-11-06] VITALS: BP 131/67; PULSE 74; RESP 18; TEMP 98.7; O2SAT 97
[2017-11-06] MEDS: PIPERACIL-TAZO 4.5 GM PREMIX 100 ML IV SCH ×4 (01:26→21:03)
[2017-11-06 08:00] VITALS: BP 150/82; PULSE 72; RESP 18; TEMP 98.3; O2SAT 98
[2017-11-06] MEDS: guaiFENesin E.R. 600 MG TAB PO SCH ×2 (08:42→21:03)
[2017-11-06] MEDS: SODIUM CHLORIDE 0.9% FLUSH 10 ML FLUSH IV FLUSH SCH ×2 (08:43→21:03)
[2017-11-06 12:00] VITALS: BP 116/77; PULSE 76; RESP 18; TEMP 98.2; O2SAT 97
--- NOTE | 2017-11-06 12:04 | HHI.PR ---
Subjective Remarks Follow-up for left foot cellulitis possibly osteomyelitis. Patient is doing well. No fever, chills. Wound wrap came off. Objective Vitals Vital Signs Date Time Temp Pulse Resp B/P (MAP) Pulse Ox O2 Delivery O2 Flow Rate FiO2 11/06/17 08:00 98.3 72 18 150/82 (104) 98 11/06/17 00:00 98.7 74 18 131/67 (88) 97 11/05/17 20:00 98.6 71 16 111/61 (78) 96 11/05/17 16:00 98.4 75 18 115/62 (79) 95 11/05/17 12:00 97.6 87 18 121/75 (90) 95 I/O 11/05/17 11/05/17 11/05/17 11/06/17 11/06/17 11/06/17 07:00 15:00 23:00 07:00 15:00 23:00 Intake Total 100 ml 1500 ml 100 ml Balance 100 ml 1500 ml 100 ml Intake Oral 1200 ml IV Total 100 ml 300 ml 100 ml # Voids 2 7 1 # Bowel Movements 1 Objective Remarks GENERAL: Alert, oriented 3, NAD. SKIN: Warm and dry. HEAD: Normocephalic. EYES: No scleral icterus. No injection or drainage. NECK: Supple, trachea midline. No JVD or lymphadenopathy. CARDIOVASCULAR: Regular rate and rhythm without murmurs, gallops, or rubs. RESPIRATORY: Breath sounds equal bilaterally. No accessory muscle use. GASTROINTESTINAL: Abdomen soft, non-tender, nondistended. MUSCULOSKELETAL: No cyanosis, or edema. Status post surgery of the left foot. Unwrapped left toe incision area healing well. BACK: Nontender without obvious deformity. No CVA tenderness. Procedures 11/02/2017 Left foot Incision bone cortex left proximal phalanx, 1st MPJ Capsulotomy. A/P Problem List: (1) Cellulitis of foot ICD Code: L03.119 - Cellulitis of foot Status: Acute Assessment and Plan Mr. Barrios is a 52-year-old male with no significant medical history who sustained left foot injury when he kicked his foot during dream and subsequently developed infection. ED workup indicated fracture and infection of the left foot. Left hallux cellulitis Possible osteomyelitis Patient went podiatry surgery I&D on 11/02/2017. Will continue Zosyn and discontinue Vancomycin. Wound culture is growing Streptococcus group B Patient is afebrile and did not have any leukocytosis. He does not have diabetes. If bone biopsy does not show any evidence of osteomyelitis, we can likely discharge patient on Oral abx such as Levaquin. Called Pathology on 11/06/2017 - hoping to get biopsy results today. Full code. Ambulation. Kenisha Sherman DO Nov 06, 2017 12:04 pm
[2017-11-06 16:00] VITALS: BP 119/65; PULSE 65; RESP 18; TEMP 97.9; O2SAT 96
[2017-11-06 20:00] VITALS: BP 138/63; PULSE 62; RESP 18; TEMP 98; O2SAT 98
[2017-11-07] VITALS: BP 135/82; PULSE 65; RESP 18; TEMP 98.2; O2SAT 97
[2017-11-07] MEDS: PIPERACIL-TAZO 4.5 GM PREMIX 100 ML IV SCH ×2 (02:24→08:34)
[2017-11-07 08:00] VITALS: BP 142/78; PULSE 61; RESP 18; TEMP 98.1; O2SAT 94
[2017-11-07] MEDS: SODIUM CHLORIDE 0.9% FLUSH 10 ML FLUSH IV FLUSH SCH (08:34)
[2017-11-07] MEDS: guaiFENesin E.R. 600 MG TAB PO SCH (08:34)
[2017-11-07] MEDS ORDERED: LEVA750T9 PO (10:29)
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
== END 2017-11-07 13:29 | disposition home or self-care (01) | DRG 581 ==
LOC: NEPE 14:55 → NEDA 18:11 → NEPGCP 20:12 → N07A 11-02 19:28
PROVIDERS: ADMIT Hospitalist; ATTEND Hospitalist
PROC: 0S9Q0ZZ Drainage of Left Toe Phalangeal Joint, Open Approach (ICD-10-PCS; 2017-11-02)
PROC: 3E0T3BZ Introduction of Anesthetic Agent into Peripheral Nerves and Plexi, Percutaneous Approach (ICD-10-PCS; 2017-11-02)
PROC: 0QBR0ZX Excision of Left Toe Phalanx, Open Approach, Diagnostic (ICD-10-PCS; principal; 2017-11-02 15:39)
DX: L03.032 Cellulitis of left toe (principal); L97.529 Non-pressure chronic ulcer of other part of left foot with unspecified severity; B95.1 Streptococcus, group B, as the cause of diseases classified elsewhere; R70.0 Elevated erythrocyte sedimentation rate; S92.422A Displaced fracture of distal phalanx of left great toe, initial encounter for closed fracture; F10.10 Alcohol abuse, uncomplicated; F17.210 Nicotine dependence, cigarettes, uncomplicated; X58.XXXA Exposure to other specified factors, initial encounter; Y93.01 Activity, walking, marching and hiking; Z91.013 Allergy to seafood
CPT/HCPCS: 73630; 73720; 80048; 80061; 80202; 83036; 84439; 84443; 85025; 85610; 85652; 85730; 86140; 86403; 87015; 87070; 87102; 87116; 87205; 87206; 88307; 88311; 93005; 94150; 94640; 94664; 96365; 96375; A9579; J1100; J2250; J2270; J2405; J2543; J3010; J3370; J7040; J7050; L3260

== ENCOUNTER 2018-03-30 13:56 | Inpatient (IN) ==
[2018-03-30] MEDS ORDERED: Piperacil/Tazo 4.5 GM Premix 4.5 GM/100 ML BAG IV.SIG ONE (15:12)
[2018-03-30] MEDS ORDERED: Vancomycin Inj 1 GM/200 ML PIGGYBACK IV.SIG ONE (15:12)
[2018-03-30] MEDS ORDERED: Tetanus/Diphtheria Toxoid Adult Vaccine Inj 0.5 ML Vial IM ONE (15:12)
--- NOTE | 2018-03-30 15:46 | ED ---
HPI General Chief complaint: Skin/Abscess/Foreign Body Stated complaint: right arm complaint Time Seen by Provider: 03/30/18 15:07 Source: patient and family Mode of arrival: ambulatory Limitations: no limitations History of Present Illness HPI narrative: 53-year-old male the presents to the ED for evaluation of right elbow swelling and pain. Per patient has had this since he had a fall on that elbow about a week ago. Per patient after the fall he was not able to move it fully and had some pain in it but he thought that it will get better. He had an abrasion on the olecranon area and has noted that he has been getting some more swelling and redness with difficulty moving the elbow since that has progressively getting worse to the point today were the elbow is almost twice the size of the left one. He denies any fevers chills or sweats. He denies any other medical issues. Takes no medications and has no PCP. He denies any history of IV drug abuse or MRSA. He does have a history of cellulitis in the past. Has been admitted in the past for infections in the past. He denies any numbness, tingling, weakness. Able to move all fingers. No chest pain or shortness of breath. He does appear to have an area of purulence on the olecranon area where she is actively draining pus. This area is about 4 cm in length. Pain per patient is 5 out of 10 at worst with touch. Related Data Allergies Allergy/AdvReac Type Severity Reaction Status Date / Time shellfish derived AdvReac Intermediate Nausea/Vomi Verified 03/30/18 13:57 ting Review of Systems ROS: all other systems reviewed are negative [facility] Social History Social History Second Hand Smoke Exposure: No Smoking Status: Current every day smoker Tobacco Type: Cigarettes How Often Do You Have a Drink Containing Alcohol: 4 or more times a week Recent Travel in [facility] within the Last 8 Weeks: No Recent Out of Country Travel within the Last 8 Weeks: No Exam Narrative Exam Narrative: GENERAL: Well appearing SKIN: Focused skin assessment warm/dry. HEAD: Atraumatic. Normocephalic. EYES: Pupils equal and round. No scleral icterus. No injection or drainage. ENT: No nasal bleeding or discharge. Mucous membranes pink and moist. Tongue is midline. No uvula deviation. NECK: Trachea midline. No JVD. CARDIOVASCULAR: Regular rate and rhythm. No murmur appreciated. RESPIRATORY: No accessory muscle use. Clear to auscultation. Breath sounds equal bilaterally. GASTROINTESTINAL: Abdomen soft, non-tender, nondistended. Hepatic and splenic margins not palpable. MUSCULOSKELETAL: No obvious deformities. No clubbing. No cyanosis. No edema. Patient has full range of motion of all extremities with exception of the right arm. Patient able to flex and extend the arm but cannot flex it past 90 secondary to swelling and discomfort as well as cannot extend the past 45 secondary to similar. He does have 2+ pulses bilaterally. He has an area of erythema and swelling noted on the medial and lateral aspect of the elbow. Patient has an area of purulence that is open on the area of the olecranon which is about 4 cm with greenish drainage coming from it. Very warm to touch. Patient does have lymphadenopathy on the right axillary node. NEUROLOGICAL: Awake and alert. No obvious cranial nerve deficits. Motor grossly within normal limits. Normal speech. PSYCHIATRIC: Appropriate mood and affect; insight and judgment normal. Course Initial Documented Vital Signs Temperature 98.9 F 03/30/18 13:57 Pulse Rate 112 H 03/30/18 13:57 Respiratory Rate 19 03/30/18 13:57 Blood Pressure 135/76 03/30/18 13:57 Pulse Oximetry 97 03/30/18 13:57 Last Documented Vital Signs Temperature 98.9 F 03/30/18 13:57 Pulse Rate 112 H 03/30/18 13:57 Respiratory Rate 19 03/30/18 13:57 Blood Pressure 135/76 03/30/18 13:57 Pulse Oximetry 97 03/30/18 13:57 Medical Decision Making [facility] Narrative Medical decision making narrative: He wants the patient admitted to [facility] and continue clindamycin as well as Zosyn and Vanco.53-year-old male the presents to the ED for evaluation of right elbow pain. Patient was properly examined and was found to have signs and symptoms concerning for significant infection of the right elbow. At this moment does not appear to be joint infection but rather more the skin. He does have an area of purulence that is actively draining olecranon area. He does have lymphadenopathy. He is somewhat tachycardic. Labs and imaging order and recommended. Patient agrees with this. Patient will start IV antibiotics and culture of the purulence was taken by me. Patient was told that he will need admission for further treatment and plan as the infection is significant. CT scan with contrast ordered as well to asses any deeper infections or osteo. Labs and imaging came back and did show no white blood cell count elevation or lactic acidosis but did show on the x- ray the patient has subcutaneous air concerning for gas forming organism. This was discussed with my attending Dr. Ruiz who was made aware of findings and spoke with 3 different doctors. At [address] Hampton from general surgery who advised to either call hand or orthopedics, not him. At [address] Keller who thinks that this may be an infected bursitis and recommends that ortho should be consulted. At [address] Langley who will follow-up on the patient. Wants patient admitted to medicine. This was discussed with the patient and family were in agreement with plan. Patient will be admitted. Patient was started on antibiotics. Given Toradol for pain. Case discussed with Dr. Piper who agrees admission to his service. Medical Screen Exam Complete: Yes Emergency Medical Condition: Yes Differential Diagnosis Differential Diagnosis: Abscess versus cellulitis versus joint infection versus septic joint Medical Records Medical records reviewed: Yes I reviewed the patient's medical records. Lab Data Lab results reviewed: Yes I reviewed the patient's lab results. Lab results narrative: lactic acid WNL Result diagrams: 03/30/18 15:50 03/30/18 15:50 Lab Results 03/30/18 03/30/18 03/30/18 Range/Units 15:50 15:50 15:50 WBC 10.5 (4.0-11.0) th/mm3 RBC 4.43 L (4.50-5.90) mil/mm3 Hgb 14.1 (13.0-17.0) gm/dL Hct 40.5 (39.0-51.0) % MCV 91.4 (80.0-100.0) fL MCH 31.8 (27.0-34.0) pg MCHC 34.8 (32.0-36.0) % RDW 14.1 (11.6-17.2) % Plt Count 250 (150-450) th/mm3 MPV 7.3 (7.0-11.0) fL Neut % (Auto) 70.0 (16.0-70.0) % Lymph % (Auto) 11.9 (9.0-44.0) % [place] % (Auto) 17.5 H (0.0-8.0) % Eos % (Auto) 0.1 (0.0-4.0) % Baso % (Auto) 0.5 (0.0-2.0) % Neut # (Auto) 7.3 (1.8-7.7) th/mm3 Lymph # (Auto) 1.3 (1.0-4.8) th/mm3 [place] # (Auto) 1.8 H (0.0-0.9) th/mm3 Eos # (Auto) 0.0 (0.0-0.4) th/mm3 Baso # (Auto) 0.1 (0.0-0.2) th/mm3 WBC Differential . Differential Comment Auto diff final PT (9.8-11.6) sec INR Ratio APTT (24.3-30.1) sec Sodium 138 (136-145) meq/L Potassium 3.2 L (3.5-5.1) meq/L Chloride 99 (98-107) meq/L Carbon Dioxide 26.3 (21.0-32.0) meq/L Anion Gap 13 (5-15) meq/L BUN 3 L (7-18) mg/dL Creatinine 0.68 (0.60-1.30) mg/dL Estimated GFR Greater than 89 (>89) mL/min Random Glucose 92 (74-106) mg/dL Lactic Acid 1.7 (0.4-2.0) mmol/L Calcium 8.2 L (8.5-10.1) mg/dL 03/30/18 Range/Units 16:00 WBC (4.0-11.0) th/mm3 RBC (4.50-5.90) mil/mm3 Hgb (13.0-17.0) gm/dL Hct (39.0-51.0) % MCV (80.0-100.0) fL MCH (27.0-34.0) pg MCHC (32.0-36.0) % RDW (11.6-17.2) % Plt Count (150-450) th/mm3 MPV (7.0-11.0) fL Neut % (Auto) (16.0-70.0) % Lymph % (Auto) (9.0-44.0) % [place] % (Auto) (0.0-8.0) % Eos % (Auto) (0.0-4.0) % Baso % (Auto) (0.0-2.0) % Neut # (Auto) (1.8-7.7) th/mm3 Lymph # (Auto) (1.0-4.8) th/mm3 [place] # (Auto) (0.0-0.9) th/mm3 Eos # (Auto) (0.0-0.4) th/mm3 Baso # (Auto) (0.0-0.2) th/mm3 WBC Differential Differential Comment PT 11.0 (9.8-11.6) sec INR 1.1 Ratio APTT 31.0 H (24.3-30.1) sec Sodium (136-145) meq/L Potassium (3.5-5.1) meq/L Chloride (98-107) meq/L Carbon Dioxide (21.0-32.0) meq/L Anion Gap (5-15) meq/L BUN (7-18) mg/dL Creatinine (0.60-1.30) mg/dL Estimated GFR (>89) mL/min Random Glucose (74-106) mg/dL Lactic Acid (0.4-2.0) mmol/L Calcium (8.5-10.1) mg/dL Imaging Data Attestation: I personally reviewed and interpreted this imaging study as follows : Radiologist's impression: Elbow X-Ray 03/30/18 15:12 CONCLUSION: Findings are concerning for infection with gas-forming organism until proven otherwise. Focal ulceration of the skin posterior to the elbow with subcutaneous air posterior to the elbow and distal humerus identified. Discharge Plan Discharge Disposition Patient Disposition: 30 Still Patient Discharge Details Diagnosis: Cellulitis, Bursitis due to bacterial infection Physicians Team ED Provider: Aga Ruiz ED Midlevel Provider: Emiliano Olivera Primary Care Provider: Primary Care Buster,Mara Attending Provider: Jimmy Piper Other Providers: Travon Sanders ; Ole Langley Status ED Status: Admitted Patient
[2018-03-30] MEDS ORDERED: Ketorolac Inj 30 MG/ML (IVP) Vial IV.PUSH ONE (15:51)
[2018-03-30 15:59] LABS: Baso # (Auto) 0.1 th/mm3 (0.0-0.2); Baso % (Auto) 0.5 % (0.0-2.0); Eos % (Auto) 0.1 % (0.0-4.0); Hematocrit 40.5 % (39.0-51.0); Hemoglobin 14.1 gm/dL (13.0-17.0); Lymph # (Auto) 1.3 th/mm3 (1.0-4.8); Lymph % (Auto) 11.9 % (9.0-44.0); Mean Corpuscular HGB Conc 34.8 % (32.0-36.0); Mean Corpuscular Hemoglobin 31.8 pg (27.0-34.0); Mean Corpuscular Volume 91.4 fL (80.0-100.0); Mean Platelet Volume 7.3 fL (7.0-11.0); Mono # (Auto) 1.8 th/mm3 (0.0-0.9); Mono % (Auto) 17.5 % (0.0-8.0); Neut # (Auto) 7.3 th/mm3 (1.8-7.7); Platelet Count 250 th/mm3 (150-450); Red Blood Count 4.43 mil/mm3 (4.50-5.90); Red Cell Distribution Width 14.1 % (11.6-17.2); White Blood Count 10.5 th/mm3 (4.0-11.0)
[2018-03-30] MEDS ORDERED: Vancomycin Inj 1,000 MG in Sodium Chlor 0.9% Inj 250 ML IV.SIG ONE (16:00)
--- NOTE | 2018-03-30 16:01 | XR ---
EXAM DATE: 03/30/2018 3:33 PM EDT AGE/SEX: 53 years / Male INDICATIONS: Right elbow pain and redness. CLINICAL DATA: This is the patient's initial encounter. Patient reports that signs and symptoms have been present for 1 day and indicates a pain score of 10/10. MEDICAL/SURGICAL HISTORY: None. None. COMPARISON: No prior exams available for comparison. FINDINGS: There is subcutaneous air, laceration and a few small calcific radiodensities in the subcutaneous tis sues posterior to the olecranon. There is a small elbow joint effusion. CONCLUSION: Findings are concerning for infection with gas-forming organism until proven otherwise. Focal ulcerat ion of the skin posterior to the elbow with subcutaneous air posterior to the elbow and distal humeru s identified. Electronically signed by: Camron Philip MD 03/30/2018 4:00 PM EDT
[2018-03-30] MEDS ORDERED: Clindamycin 900 mg/NS Premix 900 MG/50 ML PIGGYBACK IV.SIG ONE (16:18)
[2018-03-30 16:28] LABS: Anion Gap 13 meq/L (5-15); Blood Urea Nitrogen 3 mg/dL (7-18); Calcium 8.2 mg/dL (8.5-10.1); Carbon Dioxide 26.3 meq/L (21.0-32.0); Chloride 99 meq/L (98-107); Glomerular Filtration Rate Greater Than 89 mL/min (>89); Glucose,Random 92 mg/dL (74-106); Potassium 3.2 meq/L (3.5-5.1); Sodium 138 meq/L (136-145)
--- NOTE | 2018-03-30 17:00 | P.HP ---
History of Present Illness Primary Care Physician: No Primary Care Physician Chief Complaint: Right Arm pain History of Present Illness: This is a pleasant 53-year-old male the presents to the ED for evaluation of right elbow swelling and pain. Per patient has had this since he had a fall on that elbow about a week ago. Per patient after the fall he was not able to move it fully and had some pain in it but he thought that it will get better. He had an abrasion on the olecranon area and has noted that he has been getting some more swelling and redness with difficulty moving the elbow since that has progressively getting worse to the point today were the elbow is almost twice the size of the left one. He denies any fevers chills or sweats. He denies any other medical issues. Takes no medications and has no PCP. He denies any history of IV drug abuse or MRSA. He does have a history of cellulitis in the past. Has been admitted in the past for infections in the past. He denies any numbness, tingling, weakness. Able to move all fingers. No chest pain or shortness of breath. He does appear to have an area of purulence on the olecranon area where she is actively draining pus. This area is about 4 cm in length. Pain per patient is 5 out of 10 at worst with touch. Review of Systems All other systems reviewed negative except as stated in HPI PMFSH - History History Provided By: Patient - Medical History Medical History: Medical History (Last Updated 03/30/18 @ 20:06 by Jimmy Piepr MD) No pertinent past medical history - Surgical History Surgical History: Surgical History (Last Updated 03/30/18 @ 20:06 by Jimmy Piper MD) No pertinent past surgical history - Family History Family History: Family History (Last Updated 03/30/18 @ 20:07 by Jimmy Piper MD) Other Family disruption - Tobacco History Second Hand Smoke Exposure: No Tobacco Use In Past 30 Days: No Smoking Status: Current every day smoker Tobacco Type: Cigarettes - Alcohol History How Often Do You Have a Drink Containing Alcohol: 4 or more times a week - Travel History Recent Travel in the [place] Within the Last 8 Weeks: No Recent Travel Out of the Country Within the Last 8 Weeks: No - Immunization History Tetanus Immunization: Unsure Medications and Allergies Active Medications: Active Medications Vancomycin HCl 1,000 mg/ (Sodium Chloride) 250 mls @ 200 mls/hr IV.SIG ONCE ONE Stop: 03/30/18 17:14 Allergies Allergy/AdvReac Type Severity Reaction Status Date / Time shellfish derived AdvReac Intermediate Nausea/Vomi Verified 03/30/18 13:57 ting Home Medications Medication Instructions Recorded Confirmed Type No Known Home Medications 03/30/18 03/30/18 History Exam Vital signs: Vital Signs 03/30/18 13:57 Temperature 98.9 F Pulse Rate 112 H Respiratory Rate 19 Blood Pressure 135/76 Pulse Oximetry 97 Intake & Output 03/29/18 03/30/18 03/30/18 18:59 06:59 18:59 Weight 74.843 kg Narrative: GENERAL: Well appearing SKIN: Focused skin assessment warm/dry. HEAD: Atraumatic. Normocephalic. EYES: Pupils equal and round. No scleral icterus. No injection or drainage. ENT: No nasal bleeding or discharge. Mucous membranes pink and moist. Tongue is midline. No uvula deviation. NECK: Trachea midline. No JVD. CARDIOVASCULAR: Regular rate and rhythm. No murmur appreciated. RESPIRATORY: No accessory muscle use. Clear to auscultation. Breath sounds equal bilaterally. GASTROINTESTINAL: Abdomen soft, non-tender, nondistended. Hepatic and splenic margins not palpable. MUSCULOSKELETAL: No obvious deformities. No clubbing. No cyanosis. No edema. Patient has full range of motion of all extremities with exception of the right arm. Patient able to flex and extend the arm but cannot flex it past 90 secondary to swelling and discomfort as well as cannot extend the past 45 secondary to similar. He does have 2+ pulses bilaterally. He has an area of erythema and swelling noted on the medial and lateral aspect of the elbow. Patient has an area of purulence that is open on the area of the olecranon which is about 4 cm with greenish drainage coming from it. Very warm to touch. Patient does have lymphadenopathy on the right axillary node. NEUROLOGICAL: Awake and alert. No obvious cranial nerve deficits. Motor grossly within normal limits. Normal speech. PSYCHIATRIC: Appropriate mood and affect; insight and judgment normal. Results - Labs CBC & Chem 7: 03/30/18 15:50 03/30/18 15:50 Labs: Laboratory Results - last 24 hr 03/30/18 03/30/18 03/30/18 15:50 15:50 15:50 WBC 10.5 RBC 4.43 L Hgb 14.1 Hct 40.5 MCV 91.4 MCH 31.8 MCHC 34.8 RDW 14.1 Plt Count 250 MPV 7.3 Neut % (Auto) 70.0 Lymph % (Auto) 11.9 [place] % (Auto) 17.5 H Eos % (Auto) 0.1 Baso % (Auto) 0.5 Neut # (Auto) 7.3 Lymph # (Auto) 1.3 [place] # (Auto) 1.8 H Eos # (Auto) 0.0 Baso # (Auto) 0.1 WBC Differential . Differential Comment Auto diff final Sodium 138 Potassium 3.2 L Chloride 99 Carbon Dioxide 26.3 Anion Gap 13 BUN 3 L Creatinine 0.68 Estimated GFR Greater than 89 Random Glucose 92 Lactic Acid 1.7 Calcium 8.2 L - Imaging Impressions Elbow X-Ray 03/30/18 15:12 CONCLUSION: Findings are concerning for infection with gas-forming organism until proven otherwise. Focal ulceration of the skin posterior to the elbow with subcutaneous air posterior to the elbow and distal humerus identified. Caprini VTE Risk Assessment Caprini VTE Risk Assessment: Moderate/High Risk (score >= 2) Caprini Risk Assessment Model: Point Value = 1 Point Value = 2 Point Value = 3 Point Value = 5 Age 41-60 Minor surgery BMI > 25 kg/m2 Swollen legs Varicose veins or History of unexplained or recurrent spontaneous Oral contraceptives or hormone replacement Sepsis (< 1 month) Serious lung disease, including pneumonia (< 1 month) Abnormal pulmonary function Acute myocardial infarction Congestive heart failure (< 1 month) History of inflammatory bowel disease Medical patient at bed rest Age 61-74 Arthroscopic surgery Major open surgery (> 45 min) Laparoscopic surgery (> 45 min) Malignancy Confined to bed (> 72 hours) Immobilizing plaster cast Central venous access Age >= 75 History of VTE Family history of VTE Factor V Leiden Prothrombin [id number] Lupus anticoagulant Anticardiolipin antibodies Elevated serum homocysteine Heparin-induced thrombocytopenia Other congenital or acquired thrombophilia Stroke (< 1 month) Elective arthroplasty Hip, pelvis, or leg fracture Acute spinal cord injury (< 1 month) Prophylaxis Regimen: Total Risk Factor Score Risk Level Prophylaxis Regimen 0-1 Low Early ambulation 2 Moderate Order ONE of the following: *Sequential Compression Device (SCD) *Heparin 5000 units SQ BID 3-4 Higher Order ONE of the following medications: *Heparin 5000 units SQ TID *Enoxaparin/Lovenox 40 mg SQ daily (WT < 150 kg, CrCl > 30 mL/min) *Enoxaparin/Lovenox 30 mg SQ daily (WT < 150 kg, CrCl > 10-29 mL/min) *Enoxaparin/Lovenox 30 mg SQ BID (WT < 150 kg, CrCl > 30 mL/min) AND/OR *Sequential Compression Device (SCD) 5 or more Highest Order ONE of the following medications: *Heparin 5000 units SQ TID (Preferred with Epidurals) *Enoxaparin/Lovenox 40 mg SQ daily (WT < 150 kg, CrCl > 30 mL/min) *Enoxaparin/Lovenox 30 mg SQ daily (WT < 150 kg, CrCl > 10-29 mL/min) *Enoxaparin/Lovenox 30 mg SQ BID (WT < 150 kg, CrCl > 30 mL/min) AND *Sequential Compression Device (SCD) Assessment and Plan - Plan 1. Right Elbow cellulitis/Abscess antibiotics, CT scan with contrast ordered as well to asses any deeper infections or osteo. asked for Orthopedic access specialist consult, was discussed by ER physician with graphics production specialist physician, asked for coverage wide spectrum antibiotics with Vancomycin, Zosyn and clindamycin probable procedure to follow, following blood cultures. ID specialist consult 2. Tobacco dependence strongly recommended to stop smoking 3. Alcohol abuse strongly recommended to stop drinking behavior 4. Hypokalemia replaced and following. DVT prophylaxis SCDs awaiting for procedure. Code Status: Full code. Discussed Condition With: patient and Aga Villatoro Discharge Planning: Once cleared by specialist.
[2018-03-30] MEDS ORDERED: Bisacodyl 10 MG Supp RECTAL PRN (17:01)
[2018-03-30] MEDS ORDERED: Acetaminophen 325 MG Tablet PO PRN (17:01)
[2018-03-30] MEDS ORDERED: Vancomycin Consult Pharmacy OTHER PRN (17:06)
[2018-03-30] MEDS ORDERED: Morphine Inj 4 MG/ML Vial IV.PUSH PRN (17:06)
[2018-03-30 17:17] LABS: INR 1.1 Ratio
--- NOTE | 2018-03-30 17:37 | CT ---
EXAM DATE: 03/30/2018 5:18 PM EDT AGE/SEX: 53 years / Male INDICATIONS: Swollen right elbow past 2 weeks. Possible cellulitis versus abscess. CLINICAL DATA: This is the patient's initial encounter. Patient reports that signs and symptoms have been present for 2 weeks and indicates a pain score of 5/10. MEDICAL/SURGICAL HISTORY: None. None. RADIATION DOSE: 12.43 CTDI (mGy) [place] [facility] [place]. . TECHNIQUE: Multiple contiguous axial images were acquired using a multirow detector CT scanner after intravenous administration of 95 ml Omnipaque 350 (iohexol) nonionic water-soluble contrast as a si ngle exam dose.. Multiplanar reconstruction was performed in the sagittal and coronal planes. Using automated exposure control and adjustment of the mA and/or kV according to patient size, radiation d ose was kept as low as reasonably achievable to obtain optimal diagnostic quality images. DICOM form at image data is available electronically for review and comparison. FINDINGS: There is diffuse subcutaneous edema identified, and overlying skin thickening characteristic of cellu litis. There is subcutaneous air and a few radiodense foreign bodies within the subcutaneous tissues posterior to the olecranon as noted on the plain radiographs. The subcutaneous air is contiguous with a rim-enhancing collection seen best on axial image 39 measuring approximately 3.9 cm in transverse dimension within the triceps musculature. There is subcutaneous fluid anteriorly as well as a moderat e elbow joint effusion seen best on axial image 38 of series 6. There is overlying skin ulceration. T he abscess and surrounding enhancement is best seen on sagittal image 24 measuring 7.8 cm in length. CONCLUSION: 1. Abscess and cellulitis noted above. 2. Overlying skin ulceration. Electronically signed by: Camron Philip MD 03/30/2018 5:35 PM EDT
--- NOTE | 2018-03-30 17:57 | XR ---
EXAM DATE: 03/30/2018 5:55 PM EDT AGE/SEX: 53 years / Male INDICATIONS: Cellulitis. CLINICAL DATA: This is the patient's initial encounter. Patient reports that signs and symptoms have been present for 1 day and indicates a pain score of 0/10. MEDICAL/SURGICAL HISTORY: None. None. COMPARISON: [facility] [place] CHEST SINGLE AP, 08/05/2017. . FINDINGS: A single AP view of the chest demonstrates the lungs to be symmetrically aerated without evidence of mass, infiltrate or effusion. The cardiomediastinal contours are unremarkable. Osseous structures a re intact. CONCLUSION: Negative examination. Electronically signed by: Camron Philip MD 03/30/2018 5:55 PM EDT
[2018-03-30] MEDS: Sod Chloride 0.9% Inj 1,000 ML IV.CONT SCH (18:10)
[2018-03-30] MEDS ORDERED: Pharmacy Ordered Lab Info OTHER ONE (22:00)
[2018-03-30] MEDS: Senna/Docusate Sodium 8.6/50 MG Tablet PO SCH (22:32)
[2018-03-30] MEDS: Piperacil/Tazo 3.375 GM Premix 50 ML IV.SIG SCH (23:26)
[2018-03-31] MEDS: Clindamycin 600 mg/NS Premix 600 MG/50 ML PIGGYBACK IV.SIG SCH ×4 (00:37→21:17)
[2018-03-31] MEDS: Vancomycin Inj 1,000 MG in Sodium Chlor 0.9% Inj 250 ML IV.SIG SCH ×3 (02:40→17:17)
[2018-03-31] MEDS: Piperacil/Tazo 3.375 GM Premix 50 ML IV.SIG SCH ×4 (03:42→20:12)
[2018-03-31] MEDS: Sod Chloride 0.9% Inj 1,000 ML IV.CONT SCH ×2 (03:42→14:27)
[2018-03-31 07:43] LABS: Baso # (Auto) 0.1 th/mm3 (0.0-0.2); Baso % (Auto) 0.6 % (0.0-2.0); Hematocrit 38.2 % (39.0-51.0); Hemoglobin 13.2 gm/dL (13.0-17.0); Lymph # (Auto) 0.9 th/mm3 (1.0-4.8); Lymph % (Auto) 8.6 % (9.0-44.0); Mean Corpuscular HGB Conc 34.4 % (32.0-36.0); Mean Corpuscular Hemoglobin 31.2 pg (27.0-34.0); Mean Corpuscular Volume 90.7 fL (80.0-100.0); Mean Platelet Volume 7.7 fL (7.0-11.0); Mono # (Auto) 1.5 th/mm3 (0.0-0.9); Mono % (Auto) 15.3 % (0.0-8.0); Neut # (Auto) 7.5 th/mm3 (1.8-7.7); Neut % (Auto) 75.5 % (16.0-70.0); Platelet Count 247 th/mm3 (150-450); Red Blood Count 4.22 mil/mm3 (4.50-5.90); Red Cell Distribution Width 14.2 % (11.6-17.2); White Blood Count 9.9 th/mm3 (4.0-11.0)
[2018-03-31 08:02] LABS: Calcium 7.8 mg/dL (8.5-10.1); Carbon Dioxide 27.1 meq/L (21.0-32.0); Potassium 3.6 meq/L (3.5-5.1)
--- NOTE | 2018-03-31 10:19 | P.CONOP ---
[facility] Orthopedics Consult Note - [facility] Consult date: 03/30/18 Requesting physician: Jimmy Piper Consult reason: other (Infection right upper extremity) Chief complaint: Right Elbow Cellulitis and abscess. Narrative: [facility] narrative: 53-year-old male the presents to the ED for evaluation of right elbow swelling and pain. Per patient has had this since he had a fall on that elbow about a week ago. Per patient after the fall he was not able to move it fully and had some pain in it but he thought that it will get better. He had an abrasion on the olecranon area and has noted that he has been getting some more swelling and redness with difficulty moving the elbow since that has progressively getting worse to the point today were the elbow is almost twice the size of the left one. He denies any fevers chills or sweats. He denies any other medical issues. Takes no medications and has no PCP. He denies any history of IV drug abuse or MRSA. He does have a history of cellulitis in the past. Has been admitted in the past for infections in the past. He denies any numbness, tingling, weakness. Able to move all fingers. No chest pain or shortness of breath. He does appear to have an area of purulence on the olecranon area where she is actively draining pus. This area is about 4 cm in length. Pain per patient is 5 out of 10 at worst with touch. CT scan completed revealed an abscess in the distal upper arm posteriorly. Recommendation for operative intervention. Review of Systems All other systems reviewed negative except as stated in [facility] PMFSH - History History Provided By: Patient, Medical Record - Medical History Medical History: Medical History (Last Reviewed 03/31/18 @ 10:14 by Ole Langley MD) No pertinent past medical history - Surgical History Surgical History: Surgical History (Last Updated 03/31/18 @ 10:14 by Ole Langley MD) No pertinent past surgical history - Family History Family History: Family History (Last Updated 03/30/18 @ 20:07 by Jimmy Piper MD) Other Family disruption - Tobacco History Second Hand Smoke Exposure: No Tobacco Use In Past 30 Days: Yes Smoking Status: Current every day smoker Tobacco Type: Cigarettes - Alcohol History How Often Do You Have a Drink Containing Alcohol: 4 or more times a week - Substance Use History Substance History: No History of Abuse - Travel History Recent Travel in the [place] Within the Last 8 Weeks: No Recent Travel Out of the Country Within the Last 8 Weeks: No - Immunization History Tetanus Immunization: Unsure Medications and Allergies Active Medications: Active Medications Acetaminophen (Tylenol) 650 mg PO Q4H PRN PRN Reason: Temp > 100.4 Last Admin: 03/31/18 03:42 Dose: 650 mg Al Hydroxide/Mg Hydroxide (Milk Of Magnesia Liq) 30 ml PO Q12H PRN PRN Reason: Mild Constipation Bisacodyl (Dulcolax Supp) 10 mg RECTAL DAILY PRN PRN Reason: SEVERE CONSITIPATION Sodium Chloride (Ns Inj) 1,000 mls @ 100 mls/hr IV.CONT .Q10H [facility] Last Infusion: 03/31/18 04:38 Dose: 100 mls/hr Clindamycin/Sodium Chloride (Cleocin 600 Mg/Ns Premix) 600 mg in 50 mls @ 100 mls/hr IV.SIG Q8H [facility] Last Infusion: 03/31/18 06:10 Dose: Infused Piperacillin/Tazobactam/Dextrose (Zosyn 3.375 Gm Premix) 50 mls @ 100 mls/hr IV.SIG Q6H [facility] Last Infusion: 03/31/18 04:12 Dose: Infused Vancomycin HCl 1,000 mg/ (Sodium Chloride) 250 mls @ 250 mls/hr IV.SIG Q8H [facility] Last Infusion: 03/31/18 03:44 Dose: Infused Lactulose (Lactulose Liq) 30 ml PO DAILY PRN PRN Reason: SEVERE CONSITIPATION Morphine Sulfate (Morphine Inj) 2 mg IV.PUSH Q4H PRN PRN Reason: PAIN SCALE 6 TO 10 Last Admin: 03/30/18 22:31 Dose: 2 mg Ondansetron HCl (Zofran Inj) 4 mg IV.PUSH Q6H PRN PRN Reason: NAUSEA OR VOMITING Pharmacy Profile Note (Vancomycin Consult Pharmacy) 1 each OTHER UNSCH PRN PRN Reason: Pharmacy to dose Senna/Docusate Sodium (Moira-Colace) 1 tab PO BID [facility] Last Admin: 03/30/18 22:32 Dose: Not Given Sennosides (Senokot) 17.2 mg PO Q12H PRN PRN Reason: Moderate Constipation Allergies Allergy/AdvReac Type Severity Reaction Status Date / Time shellfish derived AdvReac Intermediate Nausea/Vomi Verified 03/30/18 13:57 ting Home Medications Medication Instructions Recorded Confirmed Type No Known Home Medications 03/30/18 03/30/18 History Exam Vital signs: Vital Signs 03/30/18 13:57 03/30/18 20:44 03/30/18 21:45 Temperature 98.9 F Pulse Rate 112 H 82 110 H Respiratory Rate 19 16 Blood Pressure 135/76 132/70 Pulse Oximetry 97 03/31/18 00:00 03/31/18 04:00 03/31/18 04:55 Temperature 100 F H 102.9 F H 100.3 F H Pulse Rate 111 H 115 H Respiratory Rate 18 18 Blood Pressure 132/76 153/74 H Pulse Oximetry 94 L 93 L Intake & Output 03/30/18 03/31/18 03/31/18 18:59 06:59 18:59 Intake Total 150 / 150 1320 / 1320 Balance 150 / 150 1320 / 1320 Weight 74.843 kg 75.2 kg Intake: IV 150 / 150 1200 / 1200 NS Inj 1,000 ML @ 100 mls/hr IV 500 / 500 .CONT .Q10H [facility] Rx#:[id number] Cleocin 600 mg/NS Premix 600 mg 100 / 100 In 50 ml @ 100 mls/hr IV.SIG Q8H [facility] Rx#:[id number] Cleocin 900 mg/NS Premix 900 mg 50 / 50 In 50 ml @ 100 mls/hr IV.SIG ONCE ONE Rx#:[id number] Zosyn 3.375 GM Premix 50 ML @ 100 / 100 100 mls/hr IV.SIG Q6H [facility] Rx#: [id number] Zosyn 4.5 GM Premix 4.5 gm In 100 / 100 100 ml @ 200 mls/hr IV.SIG ONCE ONE Rx#:[id number] Vancomycin Inj 1,000 MG In NS 500 / 500 Inj 250 ML @ 250 mls/hr IV.SIG Q8H [facility] Rx#:[id number] Oral 120 / 120 Other: # Voids 1 Date of Last Bowel Movement 03/30/18 - Detailed Upper Extremity Exam Shoulder/Upper Arm: Right normal inspection Elbow: Left normal inspection, Right erythema, Right swelling, Right tenderness , Right wound (Open area right olecranon), Right decreased ROM (Restricted flexion and extension but full pronation and supination without pain.), Right pain with active ROM, Right pain with passive ROM, Right fluid (Active drainage olecranon) Forearm: Left normal inspection, Right swelling Wrist: Right normal inspection Hand/Fingers: Right normal inspection Results - Labs Result Diagrams: 03/31/18 07:12 03/31/18 07:12 Labs: Laboratory Results - last 24 hr 03/30/18 03/30/18 03/30/18 15:50 15:50 15:50 WBC 10.5 RBC 4.43 L Hgb 14.1 Hct 40.5 MCV 91.4 MCH 31.8 MCHC 34.8 RDW 14.1 Plt Count 250 MPV 7.3 Neut % (Auto) 70.0 Lymph % (Auto) 11.9 [place] % (Auto) 17.5 H Eos % (Auto) 0.1 Baso % (Auto) 0.5 Neut # (Auto) 7.3 Lymph # (Auto) 1.3 [place] # (Auto) 1.8 H Eos # (Auto) 0.0 Baso # (Auto) 0.1 WBC Differential . Differential Comment Auto diff final PT INR APTT Sodium 138 Potassium 3.2 L Chloride 99 Carbon Dioxide 26.3 Anion Gap 13 BUN 3 L Creatinine 0.68 Estimated GFR Greater than 89 Random Glucose 92 Lactic Acid 1.7 Calcium 8.2 L 03/30/18 03/31/18 03/31/18 16:00 07:12 07:12 WBC 9.9 RBC 4.22 L Hgb 13.2 Hct 38.2 L MCV 90.7 MCH 31.2 MCHC 34.4 RDW 14.2 Plt Count 247 MPV 7.7 Neut % (Auto) 75.5 H Lymph % (Auto) 8.6 L [place] % (Auto) 15.3 H Eos % (Auto) 0.0 Baso % (Auto) 0.6 Neut # (Auto) 7.5 Lymph # (Auto) 0.9 L [place] # (Auto) 1.5 H Eos # (Auto) 0.0 Baso # (Auto) 0.1 WBC Differential . Differential Comment Auto diff final PT 11.0 INR 1.1 APTT 31.0 H Sodium 141 Potassium 3.6 Chloride 102 Carbon Dioxide 27.1 Anion Gap 12 BUN 7 Creatinine 0.94 Estimated GFR 84 L Random Glucose 102 Lactic Acid Calcium 7.8 L - Diagnostic results Imaging: Impressions Elbow CT 03/30/18 15:12 There is diffuse subcutaneous edema identified, and overlying skin thickening characteristic of cellulitis. There is subcutaneous air and a few radiodense foreign bodies within the subcutaneous tissues posterior to the olecranon as noted on the plain radiographs. The subcutaneous air is contiguous with a rim- enhancing collection seen best on axial image 39 measuring approximately 3.9 cm in transverse dimension within the triceps musculature. There is subcutaneous fluid anteriorly as well as a moderate elbow joint effusion seen best on axial image 38 of series 6. There is overlying skin ulceration. The abscess and surrounding enhancement is best seen on sagittal image 24 measuring 7.8 cm in length. CONCLUSION: 1. Abscess and cellulitis noted above. 2. Overlying skin ulceration. Elbow X-Ray 03/30/18 15:12 CONCLUSION: Findings are concerning for infection with gas-forming organism until proven otherwise. Focal ulceration of the skin posterior to the elbow with subcutaneous air posterior to the elbow and distal humerus identified. Chest X-Ray 03/30/18 17:30 CONCLUSION: Negative examination. Elbow x-ray: image reviewed Elbow CT: image reviewed Assessment and Plan - Problem List (1) Bursitis due to bacterial infection Code(s): M71.10 - Other infective bursitis, unspecified site; B96.89 - Other specified bacterial agents as the cause of diseases classified elsewhere Status: Acute (2) Abscess Code(s): L02.91 - Cutaneous abscess, unspecified Status: Acute - Assessment and Plan The findings were discussed. Recommendations are for operative intervention based upon the CT findings of an abscess. The nature of the planned surgical procedure, the risks, the expected benefits, as well as the postoperative expectations were discussed with him in detail. In addition, the alternatives to treatment and risks of same were discussed. The possibility of requiring further surgical management was discussed as well as the possibility of requiring a VAC device. The patient acknowledges full understanding and consents to it.
--- NOTE | 2018-03-31 10:28 | P.OP ---
- Preoperative Diagnosis (1) Abscess (2) Bursitis due to bacterial infection (3) Cellulitis - Postoperative Diagnosis (1) Abscess (2) Bursitis due to bacterial infection (3) Cellulitis Date of procedure: 03/31/18 Procedure: Incision and drainage, debridement, application of VAC device right arm/elbow Anesthesia: GETA Surgeon: Ole Langley MD Test Evaluator: Cande Myles PA-C (Ashley) The surgical procedure was assisted by my physician's assistant director of nursing. Her presence was necessary throughout the case for manipulation and positioning of the surgical extremity. My PA was assisting me throughout the duration of this procedure. The skill set of the physician assistant director of nursing was medically necessary to complete this procedure. During the surgical case the surgical elastic knitter was working at the back table and the physician assistant director of nursing was directly assisting me. Estimated blood loss (mL): 50 Pathology: other (Fluid culture and sensitivity, tissue culture) Operation and Findings: The patient was taken to the operative suite and after undergoing an adequate level of general anesthesia was placed in the lateral decubitus position on the operating table. Preoperative antibiotics were maintained on his schedule. The right upper extremity was then prepped and draped in usual sterile fashion with Betadine. The patient had an approximate 4 cm open wound over the olecranon. There was active purulent drainage present. Based on the CT scan the abscess was proximal to this area and a longitudinal incision was made. This was carried out through skin and subcutaneous tissue with a knife. Hemostasis was obtained with electrocautery. The muscular fascia was incised and split longitudinally. Upon entering the posterior medial aspect there was copious amounts of malodorous purulent material. This was cultured. Patient had thickening of the olecranon bursa was was excised sharply. Using both blunt and sharp dissection and the dissecting finger areas were released through the triceps tendon and deep to it to the humerus. There was no obvious violation of the joint. The necrotic skin edges were excised. The wound was thoroughly irrigated with antibiotic irrigant. Sharp dissection was carried out utilizing a knife and rongeur removing necrotic bursal tissue for a distance of approximately 12 cm and a depth of 3 cm. Tissue cultures were sent. Once this was completed the proximal and distal aspects of the incision were closed with 2-0 nylon. A VAC device was then applied. Sterile dressings were applied, the patient was awakened, transferred to the hospital bed and taken to the recovery room in stable condition.
[2018-03-31] MEDS ORDERED: fentaNYL Citrate Inj 100 MCG/2 ML Ampul ONE (10:29)
[2018-03-31] MEDS: Senna/Docusate Sodium 8.6/50 MG Tablet PO SCH ×2 (11:02→20:11)
[2018-03-31] MEDS ORDERED: Lidocaine PF 1% Inj 5 ML Syringe INFILTRATN ONE (11:09)
[2018-03-31] MEDS ORDERED: Neostigmine Inj 5 MG/5 ML Syringe IV.PUSH ONE (11:09)
[2018-03-31] MEDS ORDERED: Glycopyrrolate Inj 1 MG/5 ML Syringe IV.PUSH ONE (11:09)
--- NOTE | 2018-03-31 16:46 | ECG ---
Date Performed: 03/30/2018 Time Performed: 19:16:44 PTAGE: 53 years EKG: Sinus rhythm NORMAL ECG Compared to PREVIOUS TRACING , axis somewhat less leftward. T-wave changes have improved. PREVIOUS TR ACIN11/01/2017 11.52 DOCTOR: Ole Ricks Interpretating Date/Time 03/31/2018 16:45:53
[2018-03-31] MEDS ORDERED: LORazepam 1 MG Tablet PO PRN (17:16)
--- NOTE | 2018-03-31 17:16 | P.PNIM ---
Subjective Interval history: Patient went to surgery today for debridement of right elbow abscess, wound VAC placed during surgery. Physical Exam Vital signs: Vital Signs 03/30/18 20:44 03/30/18 21:45 03/31/18 00:00 Temperature 100 F H Pulse Rate 82 110 H 111 H Respiratory Rate 16 18 Blood Pressure 132/70 132/76 Pulse Oximetry 94 L 03/31/18 04:00 03/31/18 04:55 03/31/18 08:00 Temperature 102.9 F H 100.3 F H Pulse Rate 115 H Respiratory Rate 18 16 Blood Pressure 153/74 H Pulse Oximetry 93 L 03/31/18 10:23 03/31/18 10:30 03/31/18 10:45 Temperature 98.6 F Pulse Rate 101 H 91 H 80 Respiratory Rate 20 22 19 Blood Pressure 166/96 H 168/90 H 170/91 H Pulse Oximetry 99 95 99 03/31/18 10:50 03/31/18 12:00 Temperature 98.5 F 97.7 F Pulse Rate 73 56 L Respiratory Rate 17 20 Blood Pressure 166/91 H 185/90 H Pulse Oximetry 99 95 Intake & Output 03/30/18 03/31/18 03/31/18 18:59 06:59 18:59 Intake Total 150 / 150 1320 / 1320 1650 / 1650 Output Total 50 / 50 Balance 150 / 150 1320 / 1320 1600 / 1600 Weight 74.843 kg 75.2 kg Intake: IV 150 / 150 1200 / 1200 850 / 850 NS Inj 1,000 ML @ 100 mls/hr IV 500 / 500 500 / 500 .CONT .Q10H [facility] Rx#:[id number] Cleocin 600 mg/NS Premix 600 mg 100 / 100 50 / 50 In 50 ml @ 100 mls/hr IV.SIG Q8H [facility] Rx#:[id number] Cleocin 900 mg/NS Premix 900 mg 50 / 50 In 50 ml @ 100 mls/hr IV.SIG ONCE ONE Rx#:[id number] Zosyn 3.375 GM Premix 50 ML @ 100 / 100 50 / 50 100 mls/hr IV.SIG Q6H [facility] Rx#: [id number] Zosyn 4.5 GM Premix 4.5 gm In 100 / 100 100 ml @ 200 mls/hr IV.SIG ONCE ONE Rx#:[id number] Vancomycin Inj 1,000 MG In NS 500 / 500 250 / 250 Inj 250 ML @ 250 mls/hr IV.SIG Q8H [facility] Rx#:[id number] Oral 120 / 120 Anesthesia Amount 800 / 800 Output: Estimated Blood Loss 50 / 50 Other: Mode Setting Right Elbow Continuous # Voids 1 Date of Last Bowel Movement 03/30/18 Narrative: GENERAL: AAOx3, no acute distress SKIN: Warm and dry. No rashes HEAD: Atruamtic, normocephalic. EYES: No scleral icterus. No injection or drainage. ENT: Moist mucous membranes, patent nares, no erythema of oropharynx. NECK: Supple, trachea midline. No JVD or lymphadenopathy. Normal thyroid. CARDIOVASCULAR: Regular rate and rhythm. No murmurs, gallops, or rubs. RESPIRATORY: Breath sounds clear equal bilaterally. No crackles or wheezes. No accessory muscle use. GASTROINTESTINAL: Abdomen soft, non-tender, nondistended, normal active bowel sounds MUSCULOSKELETAL: Right arm in soft cast, wound VAC in place with small amount bloody drainage NEURO: CN II-XII grossly intact, no focal deficits, no slurring of speech Results - Labs CBC & Chem 7: 03/31/18 07:12 03/31/18 07:12 Laboratory Results - last 24 hr 03/30/18 03/31/18 03/31/18 16:00 07:12 07:12 WBC 9.9 RBC 4.22 L Hgb 13.2 Hct 38.2 L MCV 90.7 MCH 31.2 MCHC 34.4 RDW 14.2 Plt Count 247 MPV 7.7 Neut % (Auto) 75.5 H Lymph % (Auto) 8.6 L [place] % (Auto) 15.3 H Eos % (Auto) 0.0 Baso % (Auto) 0.6 Neut # (Auto) 7.5 Lymph # (Auto) 0.9 L [place] # (Auto) 1.5 H Eos # (Auto) 0.0 Baso # (Auto) 0.1 WBC Differential . Differential Comment Auto diff final PT 11.0 INR 1.1 APTT 31.0 H Sodium 141 Potassium 3.6 Chloride 102 Carbon Dioxide 27.1 Anion Gap 12 BUN 7 Creatinine 0.94 Estimated GFR 84 L Random Glucose 102 Calcium 7.8 L Microbiology 03/30/18 16:10 Abscess - Arm Gram Stain - Final 03/30/18 16:10 Abscess - Arm Wound Culture - Preliminary Heavy growth normal skin markell at 24 hours 03/30/18 15:55 Blood - Peripheral Aerobic Blood Culture - Preliminary No growth in 1 day 03/30/18 15:55 Blood - Peripheral Anaerobic Blood Culture - Preliminary No growth in 1 day 03/30/18 15:50 Blood - Peripheral Aerobic Blood Culture - Preliminary No growth in 1 day 03/30/18 15:50 Blood - Peripheral Anaerobic Blood Culture - Preliminary No growth in 1 day - Imaging Impressions Elbow CT 03/30/18 15:12 There is diffuse subcutaneous edema identified, and overlying skin thickening characteristic of cellulitis. There is subcutaneous air and a few radiodense foreign bodies within the subcutaneous tissues posterior to the olecranon as noted on the plain radiographs. The subcutaneous air is contiguous with a rim- enhancing collection seen best on axial image 39 measuring approximately 3.9 cm in transverse dimension within the triceps musculature. There is subcutaneous fluid anteriorly as well as a moderate elbow joint effusion seen best on axial image 38 of series 6. There is overlying skin ulceration. The abscess and surrounding enhancement is best seen on sagittal image 24 measuring 7.8 cm in length. CONCLUSION: 1. Abscess and cellulitis noted above. 2. Overlying skin ulceration. Chest X-Ray 03/30/18 17:30 CONCLUSION: Negative examination. Assessment and Plan - Plan Right Elbow cellulitis/Abscess antibiotics CT confirmed abscess General surgery performed I&D with debridement today Wound VAC in place Continue IV vancomycin and Zosyn Continue to follow blood cultures Appreciate general surgery consult Appreciate infectious disease consult Tobacco abuse Recommended to stop Patient declined nicotine patch Alcoholism Patient denies that he gets any shakes when he has no alcohol Ativan placed as needed DVT prophylaxis Continue with SCDs, encourage ambulation
[2018-04-01] MEDS: Sod Chloride 0.9% Inj 1,000 ML IV.CONT SCH ×3 (00:14→23:29)
[2018-04-01] MEDS: Vancomycin Inj 1,000 MG in Sodium Chlor 0.9% Inj 250 ML IV.SIG SCH ×2 (01:15→13:58)
[2018-04-01] MEDS ORDERED: Pharmacy Ordered Lab Info OTHER ONE (01:45)
[2018-04-01] MEDS: Piperacil/Tazo 3.375 GM Premix 50 ML IV.SIG SCH ×4 (02:29→20:11)
[2018-04-01] MEDS: Clindamycin 600 mg/NS Premix 600 MG/50 ML PIGGYBACK IV.SIG SCH ×3 (05:17→21:17)
--- NOTE | 2018-04-01 08:38 | P.PNOP ---
Subjective Interval history: POD #1 Incision and drainage, debridement, application of VAC device right arm/ elbow PT awake and alert and admits right elbow pain and motion has improved. In good spirits. All questions answered. Physical Exam Vital signs: Vital Signs 03/31/18 10:23 03/31/18 10:30 03/31/18 10:45 Temperature 98.6 F Pulse Rate 101 H 91 H 80 Respiratory Rate 20 22 19 Blood Pressure 166/96 H 168/90 H 170/91 H Pulse Oximetry 99 95 99 03/31/18 10:50 03/31/18 12:00 03/31/18 16:00 Temperature 98.5 F 97.7 F 97.9 F Pulse Rate 73 56 L 55 L Respiratory Rate 17 20 20 Blood Pressure 166/91 H 185/90 H 162/79 H Pulse Oximetry 99 95 99 03/31/18 20:00 04/01/18 00:00 04/01/18 01:58 Temperature 97.8 F 97.7 F Pulse Rate 46 L 44 L Respiratory Rate 18 18 16 Blood Pressure 143/78 H 146/82 H Pulse Oximetry 95 97 04/01/18 04:00 Temperature 97.9 F Pulse Rate 46 L Respiratory Rate 18 Blood Pressure 133/78 Pulse Oximetry 93 L Intake & Output 03/31/18 04/01/18 04/01/18 18:59 06:59 18:59 Intake Total 2370 / 2370 2370 / 2370 Output Total 50 / 50 50 / 50 Balance 2320 / 2320 2320 / 2320 Weight 75.2 kg Intake: IV 1150 / 1150 850 / 850 NS Inj 1,000 ML @ 100 mls/hr IV 500 / 500 400 / 400 .CONT .Q10H [facility] Rx#:[id number] Cleocin 600 mg/NS Premix 600 mg 50 / 50 100 / 100 In 50 ml @ 100 mls/hr IV.SIG Q8H [facility] Rx#:[id number] Zosyn 3.375 GM Premix 50 ML @ 100 / 100 100 / 100 100 mls/hr IV.SIG Q6H [facility] Rx#: [id number] Vancomycin Inj 1,000 MG In NS 500 / 500 250 / 250 Inj 250 ML @ 250 mls/hr IV.SIG Q8H [facility] Rx#:[id number] Oral 420 / 420 720 / 720 Anesthesia Amount 800 / 800 800 / 800 Output: Estimated Blood Loss 50 / 50 50 / 50 Other: Mode Setting Right Elbow Continuous Continuous # Voids 4 4 Date of Last Bowel Movement 03/30/18 # Bowel Movements 1 1 Narrative: RUE: wound vac has good seal, pari wrap is dry, no pain with ROM of elbow, decrease in swelling, good cap refill, NVI Results - Labs CBC & Chem 7: 03/31/18 07:12 03/31/18 07:12 Laboratory Results - last 24 hr 04/01/18 01:00 Vancomycin Trough 10.5 H Microbiology 03/31/18 10:05 Tissue - Arm Fungal Smear - Final No fungal elements seen 03/31/18 10:05 Wound - Arm Fungal Smear - Final No fungal elements seen 03/31/18 10:05 Wound - Arm Fungal Smear - Final No fungal elements seen 03/30/18 16:10 Abscess - Arm Gram Stain - Final 03/30/18 16:10 Abscess - Arm Wound Culture - Preliminary Heavy growth normal skin markell at 24 hours 03/30/18 15:55 Blood - Peripheral Aerobic Blood Culture - Preliminary No growth in 1 day 03/30/18 15:55 Blood - Peripheral Anaerobic Blood Culture - Preliminary No growth in 1 day 03/30/18 15:50 Blood - Peripheral Aerobic Blood Culture - Preliminary No growth in 1 day 03/30/18 15:50 Blood - Peripheral Anaerobic Blood Culture - Preliminary No growth in 1 day - Procedures Incision and drainage, debridement, application of VAC device right arm/elbow 03/31/2018, Korin Assessment and Plan - Ortho Post Op Day # 1 - Assessment and Plan POD #1 Incision and drainage, debridement, application of VAC device right arm/ elbow Ortho status stable Ok for ROM of elbow Abx negative thus far, ID involved in care. Foul smelling purulent material was found during time of procedure. Start wound vac changes and wound care M,W,F schedule. Place xeroform over sutures and seal over entire wound. CM to arrange HHC with wound vac vs rehab with wound vac. Clear for d/c from orthopedic standpoint once cleared medically. F/U with Dr Langley in 2 weeks
[2018-04-01] MEDS: Senna/Docusate Sodium 8.6/50 MG Tablet PO SCH ×2 (08:44→20:12)
--- NOTE | 2018-04-01 11:11 | P.PNIM ---
Subjective Interval history: Patient reports that his pain is well controlled, he has minimal output in his wound VAC. He denies any nausea or vomiting. He declines offer for nicotine patch. Physical Exam Vital signs: Vital Signs 03/31/18 12:00 03/31/18 16:00 03/31/18 20:00 Temperature 97.7 F 97.9 F 97.8 F Pulse Rate 56 L 55 L 46 L Respiratory Rate 20 20 18 Blood Pressure 185/90 H 162/79 H 143/78 H Pulse Oximetry 95 99 95 04/01/18 00:00 04/01/18 01:58 04/01/18 04:00 Temperature 97.7 F 97.9 F Pulse Rate 44 L 46 L Respiratory Rate 18 16 18 Blood Pressure 146/82 H 133/78 Pulse Oximetry 97 93 L 04/01/18 08:00 Temperature 98.1 F Pulse Rate 71 Respiratory Rate 16 Blood Pressure 157/91 H Pulse Oximetry 97 Intake & Output 03/31/18 04/01/18 04/01/18 18:59 06:59 18:59 Intake Total 2370 / 2370 2370 / 2370 Output Total 50 / 50 50 / 50 Balance 2320 / 2320 2320 / 2320 Weight 75.2 kg Intake: IV 1150 / 1150 850 / 850 NS Inj 1,000 ML @ 100 mls/hr IV 500 / 500 400 / 400 .CONT .Q10H [facility] Rx#:[id number] Cleocin 600 mg/NS Premix 600 mg 50 / 50 100 / 100 In 50 ml @ 100 mls/hr IV.SIG Q8H [facility] Rx#:[id number] Zosyn 3.375 GM Premix 50 ML @ 100 / 100 100 / 100 100 mls/hr IV.SIG Q6H [facility] Rx#: [id number] Vancomycin Inj 1,000 MG In NS 500 / 500 250 / 250 Inj 250 ML @ 250 mls/hr IV.SIG Q8H [facility] Rx#:[id number] Oral 420 / 420 720 / 720 Anesthesia Amount 800 / 800 800 / 800 Output: Estimated Blood Loss 50 / 50 50 / 50 Other: Mode Setting Right Elbow Continuous Continuous Continuous # Voids 4 4 Date of Last Bowel Movement 03/30/18 # Bowel Movements 1 1 Narrative: GENERAL: AAOx3, no acute distress SKIN: Warm and dry. No rashes HEAD: Atruamtic, normocephalic. EYES: No scleral icterus. No injection or drainage. ENT: Moist mucous membranes, patent nares, no erythema of oropharynx. NECK: Supple, trachea midline. No JVD or lymphadenopathy. Normal thyroid. CARDIOVASCULAR: Regular rate and rhythm. No murmurs, gallops, or rubs. RESPIRATORY: Breath sounds clear equal bilaterally. No crackles or wheezes. No accessory muscle use. GASTROINTESTINAL: Abdomen soft, non-tender, nondistended, normal active bowel sounds MUSCULOSKELETAL: Right arm in soft cast with Fabian wrap and wound VAC producing minimal discharge NEURO: CN II-XII grossly intact, no focal deficits, no slurring of speech Results - Labs CBC & Chem 7: 03/31/18 07:12 03/31/18 07:12 Laboratory Results - last 24 hr 04/01/18 01:00 Vancomycin Trough 10.5 H Microbiology 03/31/18 10:05 Tissue - Arm Gram Stain - Final 03/31/18 10:05 Wound - Arm Gram Stain - Final 03/31/18 10:05 Wound - Arm Gram Stain - Final 03/31/18 10:05 Tissue - Arm Fungal Smear - Final No fungal elements seen 03/31/18 10:05 Wound - Arm Fungal Smear - Final No fungal elements seen 03/31/18 10:05 Wound - Arm Fungal Smear - Final No fungal elements seen 03/30/18 16:10 Abscess - Arm Gram Stain - Final 03/30/18 16:10 Abscess - Arm Wound Culture - Preliminary Heavy growth normal skin markell at 24 hours 03/30/18 15:55 Blood - Peripheral Aerobic Blood Culture - Preliminary No growth in 1 day 03/30/18 15:55 Blood - Peripheral Anaerobic Blood Culture - Preliminary No growth in 1 day 03/30/18 15:50 Blood - Peripheral Aerobic Blood Culture - Preliminary No growth in 1 day 03/30/18 15:50 Blood - Peripheral Anaerobic Blood Culture - Preliminary No growth in 1 day - Procedures Incision and drainage, debridement, application of VAC device right arm/elbow 03/31/2018, [place] Assessment and Plan - Plan Right Elbow cellulitis/Abscess antibiotics CT confirmed abscess General surgery performed I&D with debridement 03/31/[address] with minimal output Blood cultures negative 2 days Continue IV vancomycin and Zosyn, awaiting final recommendations from infectious disease Patient has no insurance, this needs to be considered on discharge planning Appreciate general surgery consult Appreciate infectious disease consult Tobacco abuse Recommended to stop Patient declined nicotine patch Alcoholism Patient denies that he gets any shakes when he has no alcohol Ativan as needed DVT prophylaxis Continue with SCDs, encourage ambulation Discharge planning Patient is currently without insurance, this needs to be considered with treatment selection
--- NOTE | 2018-04-01 18:44 | MB ---
cc: Travon Sanders MD DATE: 03/31/2018 REQUESTING PHYSICIAN: Dr. Piper REASON FOR VISIT: Right elbow cellulitis. HISTORY OF PRESENT ILLNESS: This is a 53-year-old white male who tripped and fell onto concrete onto his left elbow. He subsequently developed pain and swelling of the elbow and he presented to the emergency department for evaluation. The incident occurred about a week ago. He was having difficulty moving right elbow fully. He was noted to have an abrasion at the olecranon. The patient was evaluated by the orthopedics and he underwent a drainage of the left elbow and insertion of a wound VAC. Culture is pending. The patient feels well. He tells me that he has no chills, nausea, vomiting, or other symptoms. He did have elevated temperature of 102.9 degrees early this morning. His white blood cell count is normal. Blood cultures have no growth in 24 hours. This consultation was requested for antibiotic management for infection. PAST MEDICAL HISTORY: Cellulitis of the lower extremities on 2 occasions. ALLERGIES: SHELLFISH. NO KNOWN DRUG ALLERGIES. MEDICATIONS: 1. Tylenol. 2. [place] 5 mg. SOCIAL HISTORY: Positive tobacco, positive alcohol. Denies illicit drugs. FAMILY HISTORY: Noncontributory. REVIEW OF SYSTEMS: Significant for fever and chills. Also pain in the right arm. All other systems have been reviewed and are negative. PHYSICAL EXAMINATION: GENERAL: He is a slender, well-developed male in no acute distress. VITAL SIGNS: Includes temperature 97.8, BP 125/90, respirations 20, heart rate 56. HEENT: Head atraumatic. Extraocular movements grossly intact. Pupils reactive to light. No icterus. Oropharynx, moist mucosa. No lesions. NECK: Supple. No adenopathy. LUNGS: Clear. Decreased breath sounds. HEART: Regular S1, S2, without murmurs. ABDOMEN: Bowel sounds present, soft, nontender. RECTAL: Not performed. EXTREMITIES: Her right elbow has a surgical dressing in place. There is vacuum exiting the wound bed at the olecranon and has serous drainage. SKIN: No diffuse rash. NEUROLOGIC: No gross focal finding. PSYCHIATRIC: The patient is calm and cooperative. LABORATORY DATA: WBC 9.9, platelets 247, hemoglobin 13.2. Creatinine 0.94, BUN 7, sodium 141. IMPRESSION: Cellulitis and abscess of the right elbow along with olecranon bursitis. The patient is status post incision and drainage and culture is pending. RECOMMENDATIONS: 1. Continue vancomycin. 2. Continue piperacillin/tazobactam. 3. Discontinue Cleocin. 4. Follow the wound culture for determination of antibiotics for treatment. Thank you for this consultation. I will monitor the patient's progress along with you and make further recommendations and follow up once cultures become available or depending on clinical response. MD JAN Stevenson/fredy/emilee , 02:35 PM , 02:44 PM NAHUN
[2018-04-02] MEDS: Vancomycin Inj 1,000 MG in Sodium Chlor 0.9% Inj 250 ML IV.SIG SCH (01:26)
[2018-04-02] MEDS: Piperacil/Tazo 3.375 GM Premix 50 ML IV.SIG SCH ×2 (02:51→10:28)
[2018-04-02] MEDS: Clindamycin 600 mg/NS Premix 600 MG/50 ML PIGGYBACK IV.SIG SCH (05:26)
[2018-04-02] MEDS: Sod Chloride 0.9% Inj 1,000 ML IV.CONT SCH ×2 (05:28→15:51)
[2018-04-02 07:38] LABS: Hematocrit 33.7 % (39.0-51.0); Hemoglobin 11.2 gm/dL (13.0-17.0); Mean Corpuscular HGB Conc 33.1 % (32.0-36.0); Mean Corpuscular Hemoglobin 30.9 pg (27.0-34.0); Mean Corpuscular Volume 93.4 fL (80.0-100.0); Mean Platelet Volume 8.1 fL (7.0-11.0); Platelet Count 273 th/mm3 (150-450); Red Blood Count 3.61 mil/mm3 (4.50-5.90); Red Cell Distribution Width 14.2 % (11.6-17.2); White Blood Count 8.8 th/mm3 (4.0-11.0)
[2018-04-02 07:56] LABS: Anion Gap 10 meq/L (5-15); Calcium 7.4 mg/dL (8.5-10.1); Carbon Dioxide 27.6 meq/L (21.0-32.0); Chloride 105 meq/L (98-107); Glomerular Filtration Rate Greater Than 89 mL/min (>89); Glucose,Random 71 mg/dL (74-106); Sodium 143 meq/L (136-145)
[2018-04-02 07:59] LABS: Blood Urea Nitrogen 4 mg/dL (7-18)
[2018-04-02 08:14] LABS: Total Protein 7.1 g/dL (6.4-8.2)
--- NOTE | 2018-04-02 10:24 | P.PNOP ---
Subjective Interval history: POD #2 Incision and drainage, debridement, application of VAC device right arm/ elbow PT awake and alert and admits right elbow pain and motion has improved. The patient states he discontinued the VAC device because the dressing was too tight. Physical Exam Vital signs: Vital Signs 04/01/18 12:00 04/01/18 16:00 04/01/18 20:00 Temperature 98.2 F 98.1 F 97.4 F L Pulse Rate 80 62 71 Respiratory Rate 16 16 18 Blood Pressure 125/85 144/68 H 170/77 H Pulse Oximetry 97 98 98 04/02/18 00:00 04/02/18 04:00 04/02/18 08:00 Temperature 98.3 F 98.0 F Pulse Rate 75 77 102 H Respiratory Rate 20 18 18 Blood Pressure 156/88 H 162/76 H 181/111 H Pulse Oximetry 98 97 95 Intake & Output 04/01/18 04/02/18 04/02/18 18:59 06:59 18:59 Intake Total 780 / 780 2170 / 2170 Output Total 1800 / 1800 Balance -1020 / -1020 2170 / 2170 Weight 75.2 kg Intake: IV 400 / 400 1450 / 1450 NS Inj 1,000 ML @ 100 mls/hr IV 1000 / 1000 .CONT .Q10H [facility] Rx#:[id number] Cleocin 600 mg/NS Premix 600 mg 50 / 50 100 / 100 In 50 ml @ 100 mls/hr IV.SIG Q8H [facility] Rx#:[id number] Zosyn 3.375 GM Premix 50 ML @ 100 / 100 100 / 100 100 mls/hr IV.SIG Q6H [facility] Rx#: [id number] Vancomycin Inj 1,000 MG In NS 250 / 250 250 / 250 Inj 250 ML @ 250 mls/hr IV.SIG Q12H [facility] Rx#:[id number] Oral 380 / 380 720 / 720 Output: Urine 1800 / 1800 Other: Mode Setting Right Elbow Continuous Continuous # Voids 3 Date of Last Bowel Movement 04/01/18 # Bowel Movements 0 Narrative: The VAC device tubing has been pulled from the extremity. There is slight serosanguineous drainage. It is not covered. There is moderate swelling of the elbow. He has restricted mobility although improved from his preoperative status. Neurologically no focal deficit. Results - Labs CBC & Chem 7: 04/02/18 06:48 04/02/18 06:48 Laboratory Results - last 24 hr 04/02/18 04/02/18 06:48 06:48 WBC 8.8 RBC 3.61 L Hgb 11.2 L D Hct 33.7 L MCV 93.4 MCH 30.9 MCHC 33.1 RDW 14.2 Plt Count 273 MPV 8.1 Sodium 143 Potassium 3.0 L Chloride 105 Carbon Dioxide 27.6 Anion Gap 10 BUN 4 L Creatinine 0.80 Estimated GFR Greater than 89 Random Glucose 71 L Calcium 7.4 L* Prot Corrected Calcium 7.4 L* Total Protein 7.1 Microbiology 03/31/18 10:05 Tissue - Arm Gram Stain - Final 03/31/18 10:05 Tissue - Arm Wound Culture - Preliminary Eikenella corrodens 03/31/18 10:05 Wound - Arm Gram Stain - Final 03/31/18 10:05 Wound - Arm Wound Culture - Preliminary No growth in 24 hours 03/31/18 10:05 Wound - Arm Gram Stain - Final 03/31/18 10:05 Wound - Arm Wound Culture - Final Eikenella corrodens 03/30/18 16:10 Abscess - Arm Gram Stain - Final 03/30/18 16:10 Abscess - Arm Wound Culture - Final 03/30/18 15:55 Blood - Peripheral Aerobic Blood Culture - Preliminary No growth in 2 days 03/30/18 15:55 Blood - Peripheral Anaerobic Blood Culture - Preliminary No growth in 2 days 03/30/18 15:50 Blood - Peripheral Aerobic Blood Culture - Preliminary No growth in 2 days 03/30/18 15:50 Blood - Peripheral Anaerobic Blood Culture - Preliminary No growth in 2 days 03/31/18 10:05 Tissue - Arm Fungal Smear - Final No fungal elements seen 03/31/18 10:05 Wound - Arm Fungal Smear - Final No fungal elements seen 03/31/18 10:05 Wound - Arm Fungal Smear - Final No fungal elements seen - Procedures Incision and drainage, debridement, application of VAC device right arm/elbow 03/31/2018, [place] Assessment and Plan - Problem List (1) Cellulitis Code(s): L03.90 - Cellulitis, unspecified Status: Acute Qualifiers: Site of cellulitis: extremity Site of cellulitis of extremity: upper extremity Laterality: right Qualified Code(s): L03.113 - Cellulitis of right upper limb (2) Bursitis due to bacterial infection Code(s): M71.10 - Other infective bursitis, unspecified site; B96.89 - Other specified bacterial agents as the cause of diseases classified elsewhere Status: Acute (3) Abscess Code(s): L02.91 - Cutaneous abscess, unspecified Status: Acute - Assessment and Plan POD #2 Incision and drainage, debridement, application of VAC device right arm/ elbow Ortho status stable Ok for ROM of elbow Will apply dry dressing for now and begin VAC changes secondary to its recent interruption. CM to arrange HHC with wound vac vs rehab with wound vac. Clear for d/c from orthopedic standpoint once cleared medically. F/U with Dr Langley in 2 weeks
[2018-04-02] MEDS: Senna/Docusate Sodium 8.6/50 MG Tablet PO SCH ×2 (10:28→21:02)
[2018-04-02] MEDS ORDERED: CALCIUM CHLORIDE IV.SIG ONE ×2 (10:39)
[2018-04-02] MEDS ORDERED: WATER IV.SIG ONE ×2 (10:39)
[2018-04-02] MEDS ORDERED: DEXTROSE 5% IV.SIG ONE ×2 (10:39)
--- NOTE | 2018-04-02 13:43 | P.PNIM ---
Subjective Interval history: Weight today is that he would like to move his right elbow more. Movement of that arm is limited by the soft cast in place and the wound VAC. Physical Exam Vital signs: Vital Signs 04/01/18 16:00 04/01/18 20:00 04/02/18 00:00 Temperature 98.1 F 97.4 F L Pulse Rate 62 71 75 Respiratory Rate 16 18 20 Blood Pressure 144/68 H 170/77 H 156/88 H Pulse Oximetry 98 98 98 04/02/18 04:00 04/02/18 08:00 Temperature 98.3 F 98.0 F Pulse Rate 77 102 H Respiratory Rate 18 18 Blood Pressure 162/76 H 181/111 H Pulse Oximetry 97 95 Intake & Output 04/01/18 04/02/18 04/02/18 18:59 06:59 18:59 Intake Total 780 / 780 2170 / 2170 50 / 50 Output Total 1800 / 1800 Balance -1020 / -1020 2170 / 2170 50 / 50 Weight 75.2 kg Intake: IV 400 / 400 1450 / 1450 50 / 50 NS Inj 1,000 ML @ 100 mls/hr IV 1000 / 1000 .CONT .Q10H [facility] Rx#:[id number] Cleocin 600 mg/NS Premix 600 mg 50 / 50 100 / 100 In 50 ml @ 100 mls/hr IV.SIG Q8H [facility] Rx#:[id number] Zosyn 3.375 GM Premix 50 ML @ 100 / 100 100 / 100 50 / 50 100 mls/hr IV.SIG Q6H [facility] Rx#: [id number] Vancomycin Inj 1,000 MG In NS 250 / 250 250 / 250 Inj 250 ML @ 250 mls/hr IV.SIG Q12H [facility] Rx#:[id number] Oral 380 / 380 720 / 720 Output: Urine 1800 / 1800 Other: Mode Setting Right Elbow Continuous Continuous # Voids 3 Date of Last Bowel Movement 04/01/18 # Bowel Movements 0 Narrative: The VAC device tubing has been pulled from the extremity. There is slight serosanguineous drainage. It is not covered. There is moderate swelling of the elbow. He has restricted mobility although improved from his preoperative status. Neurologically no focal deficit. Results - Labs CBC & Chem 7: 04/02/18 06:48 04/02/18 06:48 Laboratory Results - last 24 hr 04/02/18 04/02/18 06:48 06:48 WBC 8.8 RBC 3.61 L Hgb 11.2 L D Hct 33.7 L MCV 93.4 MCH 30.9 MCHC 33.1 RDW 14.2 Plt Count 273 MPV 8.1 Sodium 143 Potassium 3.0 L Chloride 105 Carbon Dioxide 27.6 Anion Gap 10 BUN 4 L Creatinine 0.80 Estimated GFR Greater than 89 Random Glucose 71 L Calcium 7.4 L* Prot Corrected Calcium 7.4 L* Total Protein 7.1 Microbiology 03/30/18 15:55 Blood - Peripheral Aerobic Blood Culture - Preliminary No growth in 3 days 03/30/18 15:55 Blood - Peripheral Anaerobic Blood Culture - Preliminary No growth in 3 days 03/30/18 15:50 Blood - Peripheral Aerobic Blood Culture - Preliminary No growth in 3 days 03/30/18 15:50 Blood - Peripheral Anaerobic Blood Culture - Preliminary No growth in 3 days 03/31/18 10:05 Wound - Arm Gram Stain - Final 03/31/18 10:05 Wound - Arm Wound Culture - Final 03/31/18 10:05 Tissue - Arm Gram Stain - Final 03/31/18 10:05 Tissue - Arm Wound Culture - Preliminary Eikenella corrodens 03/31/18 10:05 Wound - Arm Gram Stain - Final 03/31/18 10:05 Wound - Arm Wound Culture - Final Eikenella corrodens 03/30/18 16:10 Abscess - Arm Gram Stain - Final 03/30/18 16:10 Abscess - Arm Wound Culture - Final - Procedures Incision and drainage, debridement, application of VAC device right arm/elbow 03/31/2018, [place] Assessment and Plan - Plan Right Elbow cellulitis/Abscess antibiotics General surgery performed I&D with debridement 03/31/[address] with minimal output Blood cultures negative 3 days Wound culture grew out I can L accordance, antibiotics changed to Unasyn Appreciate general surgery consult Appreciate infectious disease consult Tobacco abuse Recommended to stop Patient declined nicotine patch Alcoholism Patient denies that he gets any shakes when he has no alcohol, no signs of withdrawal Ativan as needed DVT prophylaxis Continue with SCDs, encourage ambulation Discharge planning Patient is currently without insurance, this needs to be considered with treatment selection
[2018-04-02] MEDS: Ampicillin/Sulbactam Inj 1,500 MG in Sodium Chloride 0.9% Inj 100 ML IV.SIG SCH ×2 (15:51→21:45)
[2018-04-03] MEDS: Ampicillin/Sulbactam Inj 1,500 MG in Sodium Chloride 0.9% Inj 100 ML IV.SIG SCH ×4 (03:02→21:48)
[2018-04-03] MEDS: Sod Chloride 0.9% Inj 1,000 ML IV.CONT SCH ×3 (03:02→21:53)
[2018-04-03 07:13] LABS: Hemoglobin 10.6 gm/dL (13.0-17.0); Mean Corpuscular HGB Conc 34.4 % (32.0-36.0); Mean Corpuscular Hemoglobin 31.4 pg (27.0-34.0); Mean Corpuscular Volume 91.5 fL (80.0-100.0); Mean Platelet Volume 8.4 fL (7.0-11.0); Platelet Count 285 th/mm3 (150-450); Red Blood Count 3.38 mil/mm3 (4.50-5.90); Red Cell Distribution Width 14.1 % (11.6-17.2)
[2018-04-03 07:35] LABS: Anion Gap 13 meq/L (5-15); Blood Urea Nitrogen 3 mg/dL (7-18); Calcium 7.7 mg/dL (8.5-10.1); Chloride 103 meq/L (98-107); Glomerular Filtration Rate Greater Than 89 mL/min (>89); Glucose,Random 79 mg/dL (74-106); Sodium 142 meq/L (136-145)
[2018-04-03] MEDS: Senna/Docusate Sodium 8.6/50 MG Tablet PO SCH ×2 (08:27→21:47)
--- NOTE | 2018-04-03 10:12 | P.PNOP ---
Subjective Interval history: Pt is awake and alert. Sitting at bedside. Wound vac was changed and has a good seal. He states it is much more comfortable. He states he doesn't have any insurance or financial resources and discharge plans are pending. Physical Exam Vital signs: Vital Signs 04/02/18 12:00 04/02/18 16:00 04/02/18 20:00 Temperature 98.3 F 97.9 F 98.2 F Pulse Rate 72 50 L 59 L Respiratory Rate 18 18 16 Blood Pressure 168/104 H 156/93 H 155/85 H Pulse Oximetry 96 96 93 L 04/03/18 00:00 04/03/18 04:00 04/03/18 06:25 Temperature 98.5 F 99.9 F H 99.9 F H Pulse Rate 52 L 77 77 Respiratory Rate 18 18 18 Blood Pressure 171/84 H 178/90 H 178/90 H Pulse Oximetry 93 L 95 95 04/03/18 08:00 Temperature 98.4 F Pulse Rate 100 H Respiratory Rate 20 Blood Pressure 156/97 H Pulse Oximetry 97 Intake & Output 04/02/18 04/03/18 04/03/18 18:59 06:59 18:59 Intake Total 670 / 670 1785 / 1785 Balance 670 / 670 1785 / 1785 Weight 75.9 kg Intake: IV 150 / 150 1305 / 1305 NS Inj 1,000 ML @ 100 mls/hr IV 1000 / 1000 .CONT .Q10H [facility] Rx#:[id number] Unasyn Inj 1,500 MG In NS Inj 100 / 100 200 / 200 100 ML @ 200 mls/hr IV.SIG Q6H [facility] Rx#:[id number] Calcium Chloride Inj 0.5 GM In 105 / 105 D5W Inj 100 ML @ 110 mls/hr IV. SIG ONCE ONE Rx#:[id number] Zosyn 3.375 GM Premix 50 ML @ 50 / 50 100 mls/hr IV.SIG Q6H [facility] Rx#: [id number] Oral 520 / 520 480 / 480 Other: Mode Setting Right Elbow Continuous # Voids 3 5 Date of Last Bowel Movement 04/01/18 # Bowel Movements 0 2 Narrative: RUE: wound vac has good seal, slight erythematous tissue around sponge, sutures covered with xeroform, no pain with ROM, limited ROM, NVI. Results - Labs CBC & Chem 7: 04/03/18 05:56 04/03/18 05:56 Laboratory Results - last 24 hr 04/03/18 04/03/18 05:56 05:56 WBC 9.0 RBC 3.38 L Hgb 10.6 L Hct 31.0 L MCV 91.5 MCH 31.4 MCHC 34.4 RDW 14.1 Plt Count 285 MPV 8.4 Sodium 142 Potassium 3.0 L Chloride 103 Carbon Dioxide 26.0 Anion Gap 13 BUN 3 L Creatinine 0.67 Estimated GFR Greater than 89 Random Glucose 79 Calcium 7.7 L Microbiology 03/31/18 10:05 Tissue - Arm Acid Fast Bacilli Smear - Final No acid fast bacilli seen 03/31/18 10:05 Wound - Arm Acid Fast Bacilli Smear - Final No acid fast bacilli seen 03/31/18 10:05 Wound - Arm Acid Fast Bacilli Smear - Final No acid fast bacilli seen 03/30/18 15:55 Blood - Peripheral Aerobic Blood Culture - Preliminary No growth in 3 days 03/30/18 15:55 Blood - Peripheral Anaerobic Blood Culture - Preliminary No growth in 3 days 03/30/18 15:50 Blood - Peripheral Aerobic Blood Culture - Preliminary No growth in 3 days 03/30/18 15:50 Blood - Peripheral Anaerobic Blood Culture - Preliminary No growth in 3 days 03/31/18 10:05 Wound - Arm Gram Stain - Final 03/31/18 10:05 Wound - Arm Wound Culture - Final 03/31/18 10:05 Tissue - Arm Gram Stain - Final 03/31/18 10:05 Tissue - Arm Wound Culture - Preliminary Eikenella corrodens 03/31/18 10:05 Wound - Arm Gram Stain - Final 03/31/18 10:05 Wound - Arm Wound Culture - Final Eikenella corrodens - Procedures Incision and drainage, debridement, application of VAC device right arm/elbow 03/31/2018, [place] Assessment and Plan - Problem List (1) Cellulitis Code(s): L03.90 - Cellulitis, unspecified Status: Acute Qualifiers: Site of cellulitis: extremity Site of cellulitis of extremity: upper extremity Laterality: right Qualified Code(s): L03.113 - Cellulitis of right upper limb (2) Bursitis due to bacterial infection Code(s): M71.10 - Other infective bursitis, unspecified site; B96.89 - Other specified bacterial agents as the cause of diseases classified elsewhere Status: Acute (3) Abscess Code(s): L02.91 - Cutaneous abscess, unspecified Status: Acute - Assessment and Plan POD #3 Incision and drainage, debridement, application of VAC device right arm/ elbow Ortho status stable Ok for ROM of elbow M,W, F Wound vac changes. CM to arrange HHC with wound vac vs rehab with wound vac. Clear for d/c from orthopedic standpoint once cleared medically. F/U with Dr Langley in 2 weeks
--- NOTE | 2018-04-03 12:45 | P.PNID ---
Subjective Remarks: Patient says he feels okay. Has pain in the r. elbow. Vac in place at right elbow. Culture has Eikenella. This is a 53-year-old white male who tripped and fell onto concrete onto his left elbow. He subsequently developed pain and swelling of the elbow and he presented to the emergency department for evaluation. The incident occurred about a week ago. He was having difficulty moving right elbow fully. He was noted to have an abrasion at the olecranon. The patient was evaluated by the orthopedics and he underwent a drainage of the left elbow and insertion of a wound VAC. This consultation was requested for antibiotic management for infection. PAST MEDICAL HISTORY: Cellulitis of the lower extremities on 2 occasions. l Allergies/Adverse Reactions: Allergies shellfish derived Adverse Reaction (Intermediate, Verified 03/30/18 13:57) Nausea/Vomiting Objective Vital Signs 04/02/18 16:00 04/02/18 20:00 04/03/18 00:00 Temperature 97.9 F 98.2 F 98.5 F Pulse Rate 50 L 59 L 52 L Respiratory Rate 18 16 18 Blood Pressure 156/93 H 155/85 H 171/84 H Pulse Oximetry 96 93 L 93 L 04/03/18 04:00 04/03/18 06:25 04/03/18 08:00 Temperature 99.9 F H 99.9 F H 98.4 F Pulse Rate 77 77 100 H Respiratory Rate 18 18 20 Blood Pressure 178/90 H 178/90 H 156/97 H Pulse Oximetry 95 95 97 Intake & Output 04/02/18 04/03/18 04/03/18 18:59 06:59 18:59 Intake Total 670 / 670 1785 / 1785 1100 / 1100 Balance 670 / 670 1785 / 1785 1100 / 1100 Weight 75.9 kg Intake: IV 150 / 150 1305 / 1305 1100 / 1100 NS Inj 1,000 ML @ 100 mls/hr IV 1000 / 1000 1000 / 1000 .CONT .Q10H [facility] Rx#:[id number] Unasyn Inj 1,500 MG In NS Inj 100 / 100 200 / 200 100 / 100 100 ML @ 200 mls/hr IV.SIG Q6H [facility] Rx#:[id number] Calcium Chloride Inj 0.5 GM In 105 / 105 D5W Inj 100 ML @ 110 mls/hr IV. SIG ONCE ONE Rx#:[id number] Zosyn 3.375 GM Premix 50 ML @ 50 / 50 100 mls/hr IV.SIG Q6H [facility] Rx#: [id number] Oral 520 / 520 480 / 480 Other: Mode Setting Right Elbow Continuous # Voids 3 5 Date of Last Bowel Movement 04/01/18 # Bowel Movements 0 2 03/31/18 10:05 Tissue - Arm Gram Stain - Final 03/31/18 10:05 Tissue - Arm Wound Culture - Final 03/30/18 15:55 Blood - Peripheral Aerobic Blood Culture - Preliminary No growth in 4 days 03/30/18 15:55 Blood - Peripheral Anaerobic Blood Culture - Preliminary No growth in 4 days 03/30/18 15:50 Blood - Peripheral Aerobic Blood Culture - Preliminary No growth in 4 days 03/30/18 15:50 Blood - Peripheral Anaerobic Blood Culture - Preliminary No growth in 4 days 03/31/18 10:05 Tissue - Arm Acid Fast Bacilli Smear - Final No acid fast bacilli seen 03/31/18 10:05 Tissue - Arm Mycobacterial Culture - Pending 03/31/18 10:05 Wound - Arm Acid Fast Bacilli Smear - Final No acid fast bacilli seen 03/31/18 10:05 Wound - Arm Mycobacterial Culture - Pending 03/31/18 10:05 Wound - Arm Acid Fast Bacilli Smear - Final No acid fast bacilli seen 03/31/18 10:05 Wound - Arm Mycobacterial Culture - Pending 03/31/18 10:05 Wound - Arm Gram Stain - Final 03/31/18 10:05 Wound - Arm Wound Culture - Final 03/31/18 10:05 Wound - Arm Gram Stain - Final 03/31/18 10:05 Wound - Arm Wound Culture - Final Eikenella corrodens 03/30/18 16:10 Abscess - Arm Gram Stain - Final 03/30/18 16:10 Abscess - Arm Wound Culture - Final 03/31/18 10:05 Tissue - Arm Fungal Smear - Final No fungal elements seen 03/31/18 10:05 Tissue - Arm Fungal Culture - Pending 03/31/18 10:05 Wound - Arm Fungal Smear - Final No fungal elements seen 03/31/18 10:05 Wound - Arm Fungal Culture - Pending 03/31/18 10:05 Wound - Arm Fungal Smear - Final No fungal elements seen 03/31/18 10:05 Wound - Arm Fungal Culture - Pending Lab - Hematology Results 04/02/18 04/03/18 06:48 05:56 WBC 8.8 9.0 RBC 3.61 L 3.38 L Hgb 11.2 L D 10.6 L Hct 33.7 L 31.0 L MCV 93.4 91.5 MCH 30.9 31.4 MCHC 33.1 34.4 RDW 14.2 14.1 Plt Count 273 285 MPV 8.1 8.4 Lab - Chemistry Results 04/02/18 04/03/18 06:48 05:56 Sodium 143 142 Potassium 3.0 L 3.0 L Chloride 105 103 Carbon Dioxide 27.6 26.0 Anion Gap 10 13 BUN 4 L 3 L Creatinine 0.80 0.67 Estimated GFR Greater than 89 Greater than 89 Random Glucose 71 L 79 Calcium 7.4 L* 7.7 L Prot Corrected Calcium 7.4 L* Total Protein 7.1 Imaging: ITS Impressions Elbow CT 03/30/18 15:12 There is diffuse subcutaneous edema identified, and overlying skin thickening characteristic of cellulitis. There is subcutaneous air and a few radiodense foreign bodies within the subcutaneous tissues posterior to the olecranon as noted on the plain radiographs. The subcutaneous air is contiguous with a rim- enhancing collection seen best on axial image 39 measuring approximately 3.9 cm in transverse dimension within the triceps musculature. There is subcutaneous fluid anteriorly as well as a moderate elbow joint effusion seen best on axial image 38 of series 6. There is overlying skin ulceration. The abscess and surrounding enhancement is best seen on sagittal image 24 measuring 7.8 cm in length. CONCLUSION: 1. Abscess and cellulitis noted above. 2. Overlying skin ulceration. Elbow X-Ray 03/30/18 15:12 CONCLUSION: Findings are concerning for infection with gas-forming organism until proven otherwise. Focal ulceration of the skin posterior to the elbow with subcutaneous air posterior to the elbow and distal humerus identified. Chest X-Ray 03/30/18 17:30 CONCLUSION: Negative examination. Physical Exam: PHYSICAL EXAMINATION: GENERAL: No acute distress. HEENT: Head atraumatic. Extraocular movements grossly intact. Pupils reactive to light. No icterus. Oropharynx, moist mucosa. No lesions. NECK: Supple. No adenopathy. LUNGS: Clear. Decreased breath sounds. HEART: Regular S1, S2, without murmurs. ABDOMEN: Bowel sounds present, soft, nontender. EXTREMITIES: R. elbow with swelling and erythema. SKIN: No diffuse rash. NEUROLOGIC: No gross focal finding. PSYCHIATRIC: Calm and cooperative. Assessment and Plan - Plan IMPRESSION: Cellulitis and abscess of the right elbow along with olecranon bursitis. Eikenella. RECOMMENDATIONS: 1. Continue Unasyn. 2. He will need a course of IV antibiotic x 2 weeks. Can use ceftriaxone or Unasyn IV.
[2018-04-03] MEDS ORDERED: Pharmacy Ordered Lab Info OTHER ONE (13:45)
--- NOTE | 2018-04-03 15:42 | P.PNIM ---
Subjective Interval history: Patient looks more energetic today, no complaints. He had his right arm soft cast removed following an accidental tug onto his wound VAC that dislodged the back. The arm appears red, but no blood or pus noted. Physical Exam Vital signs: Vital Signs 04/02/18 16:00 04/02/18 20:00 04/03/18 00:00 Temperature 97.9 F 98.2 F 98.5 F Pulse Rate 50 L 59 L 52 L Respiratory Rate 18 16 18 Blood Pressure 156/93 H 155/85 H 171/84 H Pulse Oximetry 96 93 L 93 L 04/03/18 04:00 04/03/18 06:25 04/03/18 08:00 Temperature 99.9 F H 99.9 F H 98.4 F Pulse Rate 77 77 100 H Respiratory Rate 18 18 20 Blood Pressure 178/90 H 178/90 H 156/97 H Pulse Oximetry 95 95 97 04/03/18 12:00 Temperature 99.4 F Pulse Rate 61 Respiratory Rate 20 Blood Pressure 166/96 H Pulse Oximetry 96 Intake & Output 04/02/18 04/03/18 04/03/18 18:59 06:59 18:59 Intake Total 670 / 670 1785 / 1785 1100 / 1100 Balance 670 / 670 1785 / 1785 1100 / 1100 Weight 75.9 kg Intake: IV 150 / 150 1305 / 1305 1100 / 1100 NS Inj 1,000 ML @ 100 mls/hr IV 1000 / 1000 1000 / 1000 .CONT .Q10H [facility] Rx#:[id number] Unasyn Inj 1,500 MG In NS Inj 100 / 100 200 / 200 100 / 100 100 ML @ 200 mls/hr IV.SIG Q6H [facility] Rx#:[id number] Calcium Chloride Inj 0.5 GM In 105 / 105 D5W Inj 100 ML @ 110 mls/hr IV. SIG ONCE ONE Rx#:[id number] Zosyn 3.375 GM Premix 50 ML @ 50 / 50 100 mls/hr IV.SIG Q6H [facility] Rx#: [id number] Oral 520 / 520 480 / 480 Other: Mode Setting Right Elbow Continuous # Voids 3 5 Date of Last Bowel Movement 04/01/18 # Bowel Movements 0 2 Narrative: GENERAL: AAOx3, no acute distress SKIN: Warm and dry. Cellulitis of her right elbow and forearm HEAD: Atruamtic, normocephalic. EYES: No scleral icterus. No injection or drainage. ENT: Moist mucous membranes, patent nares, no erythema of oropharynx. NECK: Supple, trachea midline. No JVD or lymphadenopathy. Normal thyroid. CARDIOVASCULAR: Regular rate and rhythm. No murmurs, gallops, or rubs. RESPIRATORY: Breath sounds clear equal bilaterally. No crackles or wheezes. No accessory muscle use. GASTROINTESTINAL: Abdomen soft, non-tender, nondistended, normal active bowel sounds MUSCULOSKELETAL: Redness and swelling of her right elbow extending to mid forearm, wound VAC in place, no bleeding or obvious discharge. NEURO: CN II-XII grossly intact, no focal deficits, no slurring of speech Results - Labs CBC & Chem 7: 04/03/18 05:56 04/03/18 05:56 Laboratory Results - last 24 hr 04/03/18 04/03/18 05:56 05:56 WBC 9.0 RBC 3.38 L Hgb 10.6 L Hct 31.0 L MCV 91.5 MCH 31.4 MCHC 34.4 RDW 14.1 Plt Count 285 MPV 8.4 Sodium 142 Potassium 3.0 L Chloride 103 Carbon Dioxide 26.0 Anion Gap 13 BUN 3 L Creatinine 0.67 Estimated GFR Greater than 89 Random Glucose 79 Calcium 7.7 L Microbiology 03/31/18 10:05 Tissue - Arm Gram Stain - Final 03/31/18 10:05 Tissue - Arm Wound Culture - Final 03/30/18 15:55 Blood - Peripheral Aerobic Blood Culture - Preliminary No growth in 4 days 03/30/18 15:55 Blood - Peripheral Anaerobic Blood Culture - Preliminary No growth in 4 days 03/30/18 15:50 Blood - Peripheral Aerobic Blood Culture - Preliminary No growth in 4 days 03/30/18 15:50 Blood - Peripheral Anaerobic Blood Culture - Preliminary No growth in 4 days 03/31/18 10:05 Tissue - Arm Acid Fast Bacilli Smear - Final No acid fast bacilli seen 03/31/18 10:05 Wound - Arm Acid Fast Bacilli Smear - Final No acid fast bacilli seen 03/31/18 10:05 Wound - Arm Acid Fast Bacilli Smear - Final No acid fast bacilli seen - Procedures Incision and drainage, debridement, application of VAC device right arm/elbow 03/31/2018, L[place]y Assessment and Plan - Plan Right Elbow cellulitis/Abscess antibiotics General surgery performed I&D with debridement 03/31/[address] Blood cultures negative 3 days Wound culture grew out Eikenella corrodens, antibiotics changed to Unasyn Appreciate general surgery consult Appreciate infectious disease consult Tobacco abuse Recommended to stop Patient declined nicotine patch Alcoholism Patient denies that he gets any shakes when he has no alcohol, no signs of withdrawal Ativan as needed DVT prophylaxis Continue with SCDs, encourage ambulation Discharge planning Patient is currently without insurance, he will need a dmitriy wound vac and possible vac wound changes
[2018-04-04] MEDS: Ampicillin/Sulbactam Inj 1,500 MG in Sodium Chloride 0.9% Inj 100 ML IV.SIG SCH ×4 (04:37→20:26)
[2018-04-04 07:21] LABS: Hematocrit 30.4 % (39.0-51.0); Hemoglobin 10.3 gm/dL (13.0-17.0); Mean Corpuscular Hemoglobin 30.8 pg (27.0-34.0); Mean Corpuscular Volume 90.6 fL (80.0-100.0); Mean Platelet Volume 8.3 fL (7.0-11.0); Platelet Count 318 th/mm3 (150-450); Red Blood Count 3.36 mil/mm3 (4.50-5.90); Red Cell Distribution Width 14.1 % (11.6-17.2); White Blood Count 7.8 th/mm3 (4.0-11.0)
[2018-04-04 07:47] LABS: Blood Urea Nitrogen 4 mg/dL (7-18); Calcium 8.3 mg/dL (8.5-10.1); Chloride 105 meq/L (98-107); Glomerular Filtration Rate Greater Than 89 mL/min (>89); Glucose,Random 94 mg/dL (74-106); Sodium 144 meq/L (136-145)
[2018-04-04 07:48] LABS: Anion Gap 13 meq/L (5-15); Carbon Dioxide 26.2 meq/L (21.0-32.0)
[2018-04-04] MEDS: Senna/Docusate Sodium 8.6/50 MG Tablet PO SCH ×2 (08:38→20:27)
[2018-04-04] MEDS: Sod Chloride 0.9% Inj 1,000 ML IV.CONT SCH ×2 (08:38→18:43)
[2018-04-04] MEDS ORDERED: Magnesium Sulfate Inj 2 GM in Sodium Chlor 0.9% Inj 96 ML IV.SIG ONE (12:10)
--- NOTE | 2018-04-04 12:12 | P.PNIM ---
Subjective Interval history: FOLLOW UP REGARDING RIGHT UE CELLULITIS BURSITIS Cellulitis and abscess of the right elbow along with olecranon bursitis. Eikenella. ON ANTIBIOTICS HAS WOUND VAC IN PLACE DW RN AND PT AND CM HAS HAD ELEVATED BLOOD PRESSURES WILL MAKE PRN CATAPRES AVAILABLE Physical Exam Vital signs: Vital Signs 04/03/18 16:00 04/03/18 20:00 04/04/18 00:00 Temperature 98.8 F 97.2 F L 98.1 F Pulse Rate 50 L 51 L 52 L Respiratory Rate 20 18 18 Blood Pressure 172/100 H 185/97 H 167/98 H Pulse Oximetry 95 100 97 04/04/18 04:00 04/04/18 08:00 Temperature 97.9 F Pulse Rate 50 L Respiratory Rate 18 Blood Pressure 173/88 H Pulse Oximetry 100 97 Intake & Output 04/03/18 04/04/18 04/04/18 18:59 06:59 18:59 Intake Total 2160 / 2160 2480 / 2480 300 / 300 Output Total 3850 / 3850 Balance -1690 / -1690 2480 / 2480 300 / 300 Weight 76.1 kg Intake: IV 1200 / 1200 2000 / 2000 300 / 300 NS Inj 1,000 ML @ 100 mls/hr IV 1000 / 1000 1800 / 1800 200 / 200 .CONT .Q10H [facility] Rx#:[id number] Unasyn Inj 1,500 MG In NS Inj 200 / 200 200 / 200 100 / 100 100 ML @ 200 mls/hr IV.SIG Q6H [facility] Rx#:[id number] Oral 960 / 960 480 / 480 Output: Urine 3850 / 3850 Other: Mode Setting Right Elbow Continuous Continuous Continuous # Voids 3 Date of Last Bowel Movement 04/01/18 # Bowel Movements 3 Narrative: GENERAL: AAOx3, no acute distress SKIN: Warm and dry. Cellulitis of her right elbow and forearm HEAD: Atruamtic, normocephalic. EYES: No scleral icterus. No injection or drainage. ENT: Moist mucous membranes, patent nares, no erythema of oropharynx. NECK: Supple, trachea midline. No JVD or lymphadenopathy. Normal thyroid. CARDIOVASCULAR: Regular rate and rhythm. No murmurs, gallops, or rubs. RESPIRATORY: Breath sounds clear equal bilaterally. No crackles or wheezes. No accessory muscle use. GASTROINTESTINAL: Abdomen soft, non-tender, nondistended, normal active bowel sounds MUSCULOSKELETAL: Redness and swelling of her right elbow extending to mid forearm WITH SOME IMPROVEMENT, wound VAC in place, no bleeding or obvious discharge. NEURO: CN II-XII grossly intact, no focal deficits, no slurring of speech Results - Labs CBC & Chem 7: 04/04/18 06:53 04/04/18 06:53 Laboratory Results - last 24 hr 04/04/18 04/04/18 06:53 06:53 WBC 7.8 RBC 3.36 L Hgb 10.3 L Hct 30.4 L MCV 90.6 MCH 30.8 MCHC 34.0 RDW 14.1 Plt Count 318 MPV 8.3 Sodium 144 Potassium 3.0 L Chloride 105 Carbon Dioxide 26.2 Anion Gap 13 BUN 4 L Creatinine 0.70 Estimated GFR Greater than 89 Random Glucose 94 Calcium 8.3 L Microbiology 03/30/18 15:55 Blood - Peripheral Aerobic Blood Culture - Final No growth in 5 days 03/30/18 15:55 Blood - Peripheral Anaerobic Blood Culture - Final No growth in 5 days 03/30/18 15:50 Blood - Peripheral Aerobic Blood Culture - Final No growth in 5 days 03/30/18 15:50 Blood - Peripheral Anaerobic Blood Culture - Final No growth in 5 days 03/31/18 10:05 Tissue - Arm Gram Stain - Final 03/31/18 10:05 Tissue - Arm Wound Culture - Final - Imaging Elbow CT 03/30/18 15:12 There is diffuse subcutaneous edema identified, and overlying skin thickening characteristic of cellulitis. There is subcutaneous air and a few radiodense foreign bodies within the subcutaneous tissues posterior to the olecranon as noted on the plain radiographs. The subcutaneous air is contiguous with a rim- enhancing collection seen best on axial image 39 measuring approximately 3.9 cm in transverse dimension within the triceps musculature. There is subcutaneous fluid anteriorly as well as a moderate elbow joint effusion seen best on axial image 38 of series 6. There is overlying skin ulceration. The abscess and surrounding enhancement is best seen on sagittal image 24 measuring 7.8 cm in length. CONCLUSION: 1. Abscess and cellulitis noted above. 2. Overlying skin ulceration. Elbow X-Ray 03/30/18 15:12 CONCLUSION: Findings are concerning for infection with gas-forming organism until proven otherwise. Focal ulceration of the skin posterior to the elbow with subcutaneous air posterior to the elbow and distal humerus identified. Chest X-Ray 03/30/18 17:30 CONCLUSION: Negative examination. - Procedures Incision and drainage, debridement, application of VAC device right arm/elbow 03/31/2018, Korin Assessment and Plan - Plan Right Elbow cellulitis/Abscess antibiotics General surgery performed I&D with debridement 03/31/[address] Blood cultures negative 3 days Wound culture grew out Eikenella corrodens, antibiotics changed to Unasyn Appreciate general surgery consult Appreciate infectious disease consult Tobacco abuse Recommended to stop Patient declined nicotine patch Alcoholism Patient denies that he gets any shakes when he has no alcohol, no signs of withdrawal Ativan as needed DVT prophylaxis Continue with SCDs, encourage ambulation HYPOKALEMIA WILL REPLACE HYPOMAGNESIA WILL REPLACE HYPERTENSION PRN CATAPRES Discharge planning Patient is currently without insurance, he will need a ava wound vac and possible vac wound changes AM LABS Code Status: FULL CODE Discussed Condition With: DULCE RN AND PT AND CM Discharge Planning: PENDING IMPROVEMENT AND AVA VAC??
--- NOTE | 2018-04-04 14:47 | P.PNWCN ---
Wound Care Nurse Consult Additional information: Patient not seen today for wound management of R elbow, PER ANGEL Sanchez Morales [address] [place] [address], patient had wound VAC change early yesterday morning. Nursing Order from Doctor Korin states, Wound VAC dressing change 3 times a week. ANGEL Sanchez will clarify this with the Doctor.
[2018-04-05] MEDS: Ampicillin/Sulbactam Inj 1,500 MG in Sodium Chloride 0.9% Inj 100 ML IV.SIG SCH ×4 (03:05→20:48)
[2018-04-05 04:49] LABS: Baso # (Auto) 0.1 th/mm3 (0.0-0.2); Baso % (Auto) 0.9 % (0.0-2.0); Eos % (Auto) 0.5 % (0.0-4.0); Hematocrit 33.6 % (39.0-51.0); Hemoglobin 11.1 gm/dL (13.0-17.0); Lymph # (Auto) 1.1 th/mm3 (1.0-4.8); Lymph % (Auto) 17.6 % (9.0-44.0); Mean Corpuscular HGB Conc 33.1 % (32.0-36.0); Mean Corpuscular Hemoglobin 30.5 pg (27.0-34.0); Mean Platelet Volume 8.4 fL (7.0-11.0); Mono # (Auto) 0.9 th/mm3 (0.0-0.9); Mono % (Auto) 14.2 % (0.0-8.0); Neut # (Auto) 4.3 th/mm3 (1.8-7.7); Neut % (Auto) 66.8 % (16.0-70.0); Platelet Count 367 th/mm3 (150-450); Red Blood Count 3.65 mil/mm3 (4.50-5.90); Red Cell Distribution Width 14.1 % (11.6-17.2); White Blood Count 6.4 th/mm3 (4.0-11.0)
[2018-04-05 05:19] LABS: Alanine Aminotransferase 31 U/L (12-78); Albumin 2.4 g/dL (3.4-5.0); Alkaline Phosphatase 54 U/L (45-117); Anion Gap 8 meq/L (5-15); Aspartate Aminotransferase 26 U/L (15-37); Blood Urea Nitrogen 7 mg/dL (7-18); Calcium 8.7 mg/dL (8.5-10.1); Carbon Dioxide 26.8 meq/L (21.0-32.0); Chloride 105 meq/L (98-107); Free T4 (Free Thyroxine) 1.06 ng/dL (0.76-1.46); Glomerular Filtration Rate Greater Than 89 mL/min (>89); Glucose,Random 103 mg/dL (74-106); Magnesium 1.3 mg/dL (1.5-2.5); Phosphorus 4.2 mg/dL (2.5-4.9); Sodium 140 meq/L (136-145); Total Protein 7.5 g/dL (6.4-8.2)
[2018-04-05] MEDS: Sod Chloride 0.9% Inj 1,000 ML IV.CONT SCH ×2 (06:09→12:42)
[2018-04-05] MEDS: Senna/Docusate Sodium 8.6/50 MG Tablet PO SCH ×2 (08:11→20:48)
--- NOTE | 2018-04-05 12:05 | P.PNIM ---
Subjective Interval history: 9-5 FOLLOW UP REGARDING RIGHT UE CELLULITIS BURSITIS Cellulitis and abscess of the right elbow along with olecranon bursitis. Eikenella. ON ANTIBIOTICS HAS WOUND VAC IN PLACE DW RN AND PT AND CM HAS HAD ELEVATED BLOOD PRESSURES WILL MAKE PRN CATAPRES AVAILABLE - PATIENT PULLED OUT IV AND VAC LAST NIGHT WILL SEE IF CAN BE REDRESSED LATER WITH DIAL REFINISHER DW CM AND PT AND RN AM LABS Physical Exam Vital signs: Vital Signs 04/04/18 15:41 04/04/18 16:00 04/04/18 20:00 Temperature 98.1 F 98.7 F Pulse Rate 61 74 Respiratory Rate 20 21 Blood Pressure 182/102 H 166/91 H Pulse Oximetry 96 99 96 04/05/18 00:00 04/05/18 04:00 04/05/18 08:00 Temperature 98.1 F 98.2 F 97.4 F L Pulse Rate 75 67 79 Respiratory Rate 20 20 18 Blood Pressure 168/88 H 154/72 H 151/70 H Pulse Oximetry 91 L 100 96 Intake & Output 04/04/18 04/05/18 04/05/18 18:59 06:59 18:59 Intake Total 2220 / 2220 800 / 800 100 / 100 Output Total 3675 / 3675 1000 / 1000 Balance -1455 / -1455 -200 / -200 100 / 100 Weight 78.8 kg Intake: IV 1500 / 1500 800 / 800 100 / 100 NS Inj 1,000 ML @ 100 mls/hr IV 1200 / 1200 600 / 600 .CONT .Q10H [facility] Rx#:[id number] Unasyn Inj 1,500 MG In NS Inj 200 / 200 200 / 200 100 / 100 100 ML @ 200 mls/hr IV.SIG Q6H [facility] Rx#:[id number] Magnesium Sulfate Inj 2 GM In 100 / 100 NS Inj 96 ML @ 50 mls/hr IV.SIG ONCE ONE Rx#:[id number] Oral 720 / 720 Output: Urine 1000 / 1000 Urine/Stool Mix 3675 / 3675 Other: Mode Setting Right Elbow Continuous Continuous Date of Last Bowel Movement 04/04/18 # Bowel Movements 1 Narrative: GENERAL: AAOx3, no acute distress SKIN: Warm and dry. Cellulitis of her right elbow and forearm HEAD: Atruamtic, normocephalic. EYES: No scleral icterus. No injection or drainage. ENT: Moist mucous membranes, patent nares, no erythema of oropharynx. NECK: Supple, trachea midline. No JVD or lymphadenopathy. Normal thyroid. CARDIOVASCULAR: Regular rate and rhythm. No murmurs, gallops, or rubs. RESPIRATORY: Breath sounds clear equal bilaterally. No crackles or wheezes. No accessory muscle use. GASTROINTESTINAL: Abdomen soft, non-tender, nondistended, normal active bowel sounds MUSCULOSKELETAL: Redness and swelling of her right elbow extending to mid forearm WITH SOME IMPROVEMENT, wound VAC in place, no bleeding or obvious discharge. NEURO: CN II-XII grossly intact, no focal deficits, no slurring of speech Results - Labs CBC & Chem 7: 04/05/18 03:53 04/05/18 03:53 Laboratory Results - last 24 hr 04/05/18 04/05/18 03:53 03:53 WBC 6.4 RBC 3.65 L Hgb 11.1 L Hct 33.6 L MCV 92.0 MCH 30.5 MCHC 33.1 RDW 14.1 Plt Count 367 MPV 8.4 Neut % (Auto) 66.8 Lymph % (Auto) 17.6 [place] % (Auto) 14.2 H Eos % (Auto) 0.5 Baso % (Auto) 0.9 Neut # (Auto) 4.3 Lymph # (Auto) 1.1 [place] # (Auto) 0.9 Eos # (Auto) 0.0 Baso # (Auto) 0.1 WBC Differential . Differential Comment Auto diff final Sodium 140 Potassium 4.0 D Chloride 105 Carbon Dioxide 26.8 Anion Gap 8 BUN 7 Creatinine 0.78 Estimated GFR Greater than 89 Random Glucose 103 Calcium 8.7 Phosphorus 4.2 Magnesium 1.3 L Total Bilirubin 0.3 AST 26 ALT 31 Alkaline Phosphatase 54 Total Protein 7.5 Albumin 2.4 L TSH 3.500 Free T4 1.06 Microbiology 03/30/18 15:55 Blood - Peripheral Aerobic Blood Culture - Final No growth in 5 days 03/30/18 15:55 Blood - Peripheral Anaerobic Blood Culture - Final No growth in 5 days 03/30/18 15:50 Blood - Peripheral Aerobic Blood Culture - Final No growth in 5 days 03/30/18 15:50 Blood - Peripheral Anaerobic Blood Culture - Final No growth in 5 days - Imaging ITS Impressions Elbow CT 03/30/18 15:12 There is diffuse subcutaneous edema identified, and overlying skin thickening characteristic of cellulitis. There is subcutaneous air and a few radiodense foreign bodies within the subcutaneous tissues posterior to the olecranon as noted on the plain radiographs. The subcutaneous air is contiguous with a rim- enhancing collection seen best on axial image 39 measuring approximately 3.9 cm in transverse dimension within the triceps musculature. There is subcutaneous fluid anteriorly as well as a moderate elbow joint effusion seen best on axial image 38 of series 6. There is overlying skin ulceration. The abscess and surrounding enhancement is best seen on sagittal image 24 measuring 7.8 cm in length. CONCLUSION: 1. Abscess and cellulitis noted above. 2. Overlying skin ulceration. Elbow X-Ray 03/30/18 15:12 CONCLUSION: Findings are concerning for infection with gas-forming organism until proven otherwise. Focal ulceration of the skin posterior to the elbow with subcutaneous air posterior to the elbow and distal humerus identified. Chest X-Ray 03/30/18 17:30 CONCLUSION: Negative examination. - Procedures Incision and drainage, debridement, application of VAC device right arm/elbow 03/31/2018, Korin Assessment and Plan - Plan Right Elbow cellulitis/Abscess antibiotics General surgery performed I&D with debridement 03/31/[address] Blood cultures negative 3 days Wound culture grew out Eikenella corrodens, antibiotics changed to Unasyn Appreciate general surgery consult Appreciate infectious disease consult PULLED VAC OFF LAST NIGHT PULLED IV LAST NIGHT Tobacco abuse Recommended to stop Patient declined nicotine patch Alcoholism Patient denies that he gets any shakes when he has no alcohol, no signs of withdrawal Ativan as needed DVT prophylaxis Continue with SCDs, encourage ambulation HYPOKALEMIA WILL REPLACE HYPOMAGNESIA WILL REPLACE HYPERTENSION PRN CATAPRES Discharge planning Patient is currently without insurance, he will need a dmitriy wound vac and possible vac wound changes AM LABS NEEDS A LINE AND VAC REPLACED Code Status: FULL CODE Discussed Condition With: RN AND PT AND CM Discharge Planning: PENDING IMPROVEMENT AND DMITRIY VAC??
[2018-04-05] MEDS ORDERED: Magnesium Sulfate Inj 2 GM in Sodium Chlor 0.9% Inj 96 ML IV.SIG ONE (13:00)
[2018-04-05 15:33] LABS: Hemoglobin A1c 6.2 % (4.3-6.0)
--- NOTE | 2018-04-05 18:15 | P.PNWCN ---
Wound Care Nurse Consult Description: Patient seen for R elbow wound management per consult from Doctor Carreon Communicated with: Call placed to Doctor Korin at [phone]. Spoke with RN Cheri ochoa regarding dressing recommendations. Recommendation: Please leave puracol plus in place to wound bed for 5 days and may change Optifoam basic, ABD pad, rolled gauze and FABIAN wrap PRN if saturated or dislodged. If purcol becomes dislodged or after dressing has been in place for 5 days, please cleanse wound to R elbow with normal saline and cut puracol plus to fit wound bed. Apply hydrogel to exposed tendon and pack puracol plus to wound bed. Cover wound with optifoam basic and ABD pad. Secure dressing with rolled gauze and Fabian wrap. change every 5 days Wound/Pressure Injury - Wound Right Elbow Wound Assessment: Ongoing Wound Type: Traumatic Wound Is This a Chronic Wound: Yes Requested from Provider a Wound Care Consult: Yes Length: 3 (cm) Width: 2 (cm) Depth: 0.8 (cm) Wound Bed Appearance: [place], Tunneling/Undermining (From 7 to 1 o'clock deepest at 1 measuring 4.4), White Wound Bed Appearance: Wound bed presents with loose exposed tendon and facia and ~70% pale pink tissue Surrounding Tissue Appearance: Erythema Surrounding Tissue Temperature: Warm Drainage Description: Serosanguinous Drainage Amount: Minimal Dressing Status: Changed Cleansing Solution: Saline Topical: hydrogel to exposed tendon Wound Packing Type: Collagen (puracol plus) Primary Dressing: optifoam basic Cover Dressing: ABD pad, rolled gauze and FABIAN wrap Tape Type: Paper Wound Dressing Change Date: 04/05/18 Wound Margin Description: well defined with some thickening - Additional Information Patient seen on Deepthi ochoa for wound management of R elbow, full note to follow
[2018-04-06] MEDS: Sod Chloride 0.9% Inj 1,000 ML IV.CONT SCH ×3 (03:50→22:44)
[2018-04-06] MEDS: Ampicillin/Sulbactam Inj 1,500 MG in Sodium Chloride 0.9% Inj 100 ML IV.SIG SCH ×4 (03:50→22:44)
[2018-04-06 06:27] LABS: Baso # (Auto) 0.1 th/mm3 (0.0-0.2); Baso % (Auto) 1.2 % (0.0-2.0); Eos % (Auto) 0.6 % (0.0-4.0); Hematocrit 32.8 % (39.0-51.0); Hemoglobin 11.2 gm/dL (13.0-17.0); Lymph # (Auto) 1.4 th/mm3 (1.0-4.8); Lymph % (Auto) 26.6 % (9.0-44.0); Mean Corpuscular HGB Conc 34.1 % (32.0-36.0); Mean Corpuscular Hemoglobin 30.7 pg (27.0-34.0); Mean Corpuscular Volume 89.8 fL (80.0-100.0); Mean Platelet Volume 8.1 fL (7.0-11.0); Mono # (Auto) 0.9 th/mm3 (0.0-0.9); Mono % (Auto) 17.2 % (0.0-8.0); Neut # (Auto) 2.8 th/mm3 (1.8-7.7); Neut % (Auto) 54.4 % (16.0-70.0); Platelet Count 449 th/mm3 (150-450); Red Blood Count 3.66 mil/mm3 (4.50-5.90); Red Cell Distribution Width 14.1 % (11.6-17.2); White Blood Count 5.1 th/mm3 (4.0-11.0)
[2018-04-06 06:41] LABS: Albumin 2.5 g/dL (3.4-5.0); Anion Gap 9 meq/L (5-15); Aspartate Aminotransferase 23 U/L (15-37); Blood Urea Nitrogen 7 mg/dL (7-18); Calcium 9.1 mg/dL (8.5-10.1); Carbon Dioxide 27.8 meq/L (21.0-32.0); Chloride 105 meq/L (98-107); Glomerular Filtration Rate Greater Than 89 mL/min (>89); Glucose,Random 85 mg/dL (74-106); Magnesium 1.3 mg/dL (1.5-2.5); Potassium 3.8 meq/L (3.5-5.1); Sodium 142 meq/L (136-145)
[2018-04-06 06:43] LABS: Alanine Aminotransferase 31 U/L (12-78); Phosphorus 4.7 mg/dL (2.5-4.9)
[2018-04-06 06:46] LABS: Alkaline Phosphatase 46 U/L (45-117); Total Protein 7.3 g/dL (6.4-8.2)
--- NOTE | 2018-04-06 07:54 | P.PNOP ---
Subjective Interval history: Postoperative day 6 I&D right upper extremity. The patient is resting comfortably. His pain is improved. He has now discontinued two VAC devices. He currently is undergoing dressing changes. Physical Exam Vital signs: Vital Signs 04/05/18 08:00 04/05/18 12:00 04/05/18 16:00 Temperature 97.4 F L 97.5 F L 97.8 F Pulse Rate 79 52 L 62 Respiratory Rate 18 19 19 Blood Pressure 151/70 H 176/89 H 180/92 H Pulse Oximetry 96 98 99 04/05/18 20:00 04/06/18 00:00 04/06/18 04:00 Temperature 98.5 F 97.8 F 98.2 F Pulse Rate 62 59 L 60 Respiratory Rate 21 20 20 Blood Pressure 148/64 H 154/84 H 148/72 H Pulse Oximetry 96 99 95 Intake & Output 04/05/18 04/06/18 04/06/18 18:59 06:59 18:59 Intake Total 1260 / 1260 1040 / 1040 Balance 1260 / 1260 1040 / 1040 Weight 79.3 kg Intake: IV 700 / 700 800 / 800 NS Inj 1,000 ML @ 100 mls/hr IV 400 / 400 600 / 600 .CONT .Q10H [facility] Rx#:[id number] Unasyn Inj 1,500 MG In NS Inj 200 / 200 200 / 200 100 ML @ 200 mls/hr IV.SIG Q6H [facility] Rx#:[id number] Magnesium Sulfate Inj 2 GM In 100 / 100 NS Inj 96 ML @ 50 mls/hr IV.SIG ONCE ONE Rx#:[id number] Oral 560 / 560 240 / 240 Other: # Voids 3 3 Date of Last Bowel Movement 04/04/18 # Bowel Movements 1 Narrative: The right elbow has a dressing in place. There is less swelling of the upper arm. He has restricted active range of motion primarily in extension. He has painless pronation and supination. Neurologically no focal deficit. Results - Labs CBC & Chem 7: 04/06/18 05:12 04/06/18 05:12 Laboratory Results - last 24 hr 04/05/18 04/06/18 04/06/18 03:53 05:12 05:12 WBC 5.1 RBC 3.66 L Hgb 11.2 L Hct 32.8 L MCV 89.8 MCH 30.7 MCHC 34.1 RDW 14.1 Plt Count 449 MPV 8.1 Neut % (Auto) 54.4 Lymph % (Auto) 26.6 [place] % (Auto) 17.2 H Eos % (Auto) 0.6 Baso % (Auto) 1.2 Neut # (Auto) 2.8 Lymph # (Auto) 1.4 [place] # (Auto) 0.9 Eos # (Auto) 0.0 Baso # (Auto) 0.1 WBC Differential . Differential Comment Auto diff final Sodium 142 Potassium 3.8 Chloride 105 Carbon Dioxide 27.8 Anion Gap 9 BUN 7 Creatinine 0.76 Estimated GFR Greater than 89 Random Glucose 85 Hemoglobin A1c 6.2 H Calcium 9.1 Phosphorus 4.7 Magnesium 1.3 L Total Bilirubin 0.3 AST 23 ALT 31 Alkaline Phosphatase 46 Total Protein 7.3 Albumin 2.5 L - Procedures Incision and drainage, debridement, application of VAC device right arm/elbow 03/31/2018, Korin Assessment and Plan - Ortho Post Op Day # 6 - Problem List (1) Cellulitis Code(s): L03.90 - Cellulitis, unspecified Status: Acute Qualifiers: Site of cellulitis: extremity Site of cellulitis of extremity: upper extremity Laterality: right Qualified Code(s): L03.113 - Cellulitis of right upper limb (2) Bursitis due to bacterial infection Code(s): M71.10 - Other infective bursitis, unspecified site; B96.89 - Other specified bacterial agents as the cause of diseases classified elsewhere Status: Acute (3) Abscess Code(s): L02.91 - Cutaneous abscess, unspecified Status: Acute - Assessment and Plan POD #3 Incision and drainage, debridement, application of VAC device right arm/ elbow Ortho status stable Ok for ROM of elbow Discontinue VAC treatment secondary to patient's noncompliance. Daily dressing changes per wound care Clear for d/c from orthopedic standpoint once cleared medically. F/U with Dr Langley in 2 weeks
[2018-04-06] MEDS: Senna/Docusate Sodium 8.6/50 MG Tablet PO SCH ×2 (09:15→22:44)
--- NOTE | 2018-04-06 12:55 | P.PNIM ---
Subjective Interval history: 9- FOLLOW UP REGARDING RIGHT UE CELLULITIS BURSITIS Cellulitis and abscess of the right elbow along with olecranon bursitis. Eikenella. ON ANTIBIOTICS HAS WOUND VAC IN PLACE DW RN AND PT AND CM HAS HAD ELEVATED BLOOD PRESSURES WILL MAKE PRN CATAPRES AVAILABLE 04-05 PATIENT PULLED OUT IV AND VAC LAST NIGHT WILL SEE IF CAN BE REDRESSED LATER WITH MARKETING SERVICES SPECIALIST DW CM AND PT AND RN AM LABS 04-[address] DRESSINGS PER WOUND CARE NOW CONTINUE ANTIBIOTICS IV UNTIL COMPLETE DW RN AND PT AND CM PATIENT GETS "CONFUSED" AT NIGHT AM LABS REPLACE MAGNESIUM Physical Exam Vital signs: Vital Signs 04/05/18 16:00 04/05/18 20:00 04/06/18 00:00 Temperature 97.8 F 98.5 F 97.8 F Pulse Rate 62 62 59 L Respiratory Rate 19 21 20 Blood Pressure 180/92 H 148/64 H 154/84 H Pulse Oximetry 99 96 99 04/06/18 04:00 04/06/18 08:00 04/06/18 12:00 Temperature 98.2 F 98.1 F 98.2 F Pulse Rate 60 54 L 60 Respiratory Rate 20 19 20 Blood Pressure 148/72 H 173/92 H 135/55 L Pulse Oximetry 95 95 96 Intake & Output 04/05/18 04/06/18 04/06/18 18:59 06:59 18:59 Intake Total 1260 / 1260 1040 / 1040 1100 / 1100 Balance 1260 / 1260 1040 / 1040 1100 / 1100 Weight 79.3 kg Intake: IV 700 / 700 800 / 800 1100 / 1100 NS Inj 1,000 ML @ 100 mls/hr IV 400 / 400 600 / 600 1000 / 1000 .CONT .Q10H [facility] Rx#:[id number] Unasyn Inj 1,500 MG In NS Inj 200 / 200 200 / 200 100 / 100 100 ML @ 200 mls/hr IV.SIG Q6H [facility] Rx#:[id number] Magnesium Sulfate Inj 2 GM In 100 / 100 NS Inj 96 ML @ 50 mls/hr IV.SIG ONCE ONE Rx#:[id number] Oral 560 / 560 240 / 240 Other: # Voids 3 3 Date of Last Bowel Movement 04/04/18 # Bowel Movements 1 Narrative: .GENERAL: AAOx3, no acute distress SKIN: Warm and dry. Cellulitis of her right elbow and forearm HEAD: Atruamtic, normocephalic. EYES: No scleral icterus. No injection or drainage. ENT: Moist mucous membranes, patent nares, no erythema of oropharynx. NECK: Supple, trachea midline. No JVD or lymphadenopathy. Normal thyroid. CARDIOVASCULAR: Regular rate and rhythm. No murmurs, gallops, or rubs. RESPIRATORY: Breath sounds clear equal bilaterally. No crackles or wheezes. No accessory muscle use. GASTROINTESTINAL: Abdomen soft, non-tender, nondistended, normal active bowel sounds MUSCULOSKELETAL: Redness and swelling of her right elbow extending to mid forearm WITH MUCH IMPROVEMENT, NO wound VAC in place, ARM JUST DRESSED NEURO: CN II-XII grossly intact, no focal deficits, no slurring of speech Results - Labs CBC & Chem 7: 04/06/18 05:12 04/06/18 05:12 Laboratory Results - last 24 hr 04/05/18 04/06/18 04/06/18 03:53 05:12 05:12 WBC 5.1 RBC 3.66 L Hgb 11.2 L Hct 32.8 L MCV 89.8 MCH 30.7 MCHC 34.1 RDW 14.1 Plt Count 449 MPV 8.1 Neut % (Auto) 54.4 Lymph % (Auto) 26.6 [place] % (Auto) 17.2 H Eos % (Auto) 0.6 Baso % (Auto) 1.2 Neut # (Auto) 2.8 Lymph # (Auto) 1.4 [place] # (Auto) 0.9 Eos # (Auto) 0.0 Baso # (Auto) 0.1 WBC Differential . Differential Comment Auto diff final Sodium 142 Potassium 3.8 Chloride 105 Carbon Dioxide 27.8 Anion Gap 9 BUN 7 Creatinine 0.76 Estimated GFR Greater than 89 Random Glucose 85 Hemoglobin A1c 6.2 H Calcium 9.1 Phosphorus 4.7 Magnesium 1.3 L Total Bilirubin 0.3 AST 23 ALT 31 Alkaline Phosphatase 46 Total Protein 7.3 Albumin 2.5 L - Procedures Incision and drainage, debridement, application of VAC device right arm/elbow 03/31/2018, Korin Assessment and Plan - Plan Right Elbow cellulitis/Abscess antibiotics General surgery performed I&D with debridement 03/31/[address]-PT SELF DISCONTINUED TWICE- WILL NOT BE RESTARTED AGAIN PER ORTHO Blood cultures negative 3 days Wound culture grew out Eikenella corrodens, antibiotics changed to Unasyn Appreciate general surgery consult Appreciate infectious disease consult PULLED VAC OFF LAST NIGHT PULLED IV LAST NIGHT Tobacco abuse Recommended to stop Patient declined nicotine patch Alcoholism Patient denies that he gets any shakes when he has no alcohol, no signs of withdrawal Ativan as needed DVT prophylaxis Continue with SCDs, encourage ambulation HYPOKALEMIA WILL REPLACE HYPOMAGNESIA WILL REPLACE AGAIN HYPERTENSION PRN CATAPRES Discharge planning Patient is currently without insurance, AM LABS NEEDS A LINE AND NO LONGER USING VAC CM FOR OUTPATIENT WOUND CARE AND ROCEPHIN 2GRAMS IV DAILY FOR 14 DAYS Code Status: FULL CODE Discussed Condition With: RN AND PT Discharge Planning: PENDING IMPROVEMENT AND WHEN CAN BE SWITCHED TO PO ANTIBIOTICS
[2018-04-07] MEDS: Ampicillin/Sulbactam Inj 1,500 MG in Sodium Chloride 0.9% Inj 100 ML IV.SIG SCH ×4 (03:33→20:16)
[2018-04-07] MEDS: Sod Chloride 0.9% Inj 1,000 ML IV.CONT SCH ×2 (06:41→18:45)
[2018-04-07 09:18] LABS: Baso # (Auto) 0.1 th/mm3 (0.0-0.2); Baso % (Auto) 1.1 % (0.0-2.0); Eos % (Auto) 0.4 % (0.0-4.0); Hematocrit 35.4 % (39.0-51.0); Hemoglobin 11.9 gm/dL (13.0-17.0); Lymph # (Auto) 1.8 th/mm3 (1.0-4.8); Lymph % (Auto) 25.8 % (9.0-44.0); Mean Corpuscular HGB Conc 33.6 % (32.0-36.0); Mean Corpuscular Hemoglobin 31.1 pg (27.0-34.0); Mean Corpuscular Volume 92.4 fL (80.0-100.0); Mono # (Auto) 1.1 th/mm3 (0.0-0.9); Mono % (Auto) 15.5 % (0.0-8.0); Neut % (Auto) 57.2 % (16.0-70.0); Platelet Count 502 th/mm3 (150-450); Red Blood Count 3.83 mil/mm3 (4.50-5.90); Red Cell Distribution Width 14.2 % (11.6-17.2); White Blood Count 6.9 th/mm3 (4.0-11.0)
[2018-04-07 09:51] LABS: Alanine Aminotransferase 28 U/L (12-78); Albumin 2.5 g/dL (3.4-5.0); Anion Gap 12 meq/L (5-15); Aspartate Aminotransferase 20 U/L (15-37); Blood Urea Nitrogen 11 mg/dL (7-18); Calcium 9.2 mg/dL (8.5-10.1); Chloride 106 meq/L (98-107); Glomerular Filtration Rate Greater Than 89 mL/min (>89); Glucose,Random 74 mg/dL (74-106); Magnesium 1.4 mg/dL (1.5-2.5); Potassium 3.9 meq/L (3.5-5.1); Sodium 141 meq/L (136-145)
[2018-04-07 09:54] LABS: Alkaline Phosphatase 45 U/L (45-117); Phosphorus 4.7 mg/dL (2.5-4.9); Total Protein 7.4 g/dL (6.4-8.2)
--- NOTE | 2018-04-07 11:32 | P.PNIM ---
Subjective Interval history: 9- FOLLOW UP REGARDING RIGHT UE CELLULITIS BURSITIS Cellulitis and abscess of the right elbow along with olecranon bursitis. Eikenella. ON ANTIBIOTICS HAS WOUND VAC IN PLACE DW RN AND PT AND CM HAS HAD ELEVATED BLOOD PRESSURES WILL MAKE PRN CATAPRES AVAILABLE 04-05 PATIENT PULLED OUT IV AND VAC LAST NIGHT WILL SEE IF CAN BE REDRESSED LATER WITH CLOTHESPIN MACHINE OPERATOR DW CM AND PT AND RN AM LABS 04-[address] DRESSINGS PER WOUND CARE NOW CONTINUE ANTIBIOTICS IV UNTIL COMPLETE DW RN AND PT AND CM PATIENT GETS "CONFUSED" AT NIGHT AM LABS REPLACE MAGNESIUM 04-07 CONTINUE WOUND CARE AND ANTIBIOTICS DW CLOTHESPIN MACHINE OPERATOR HAS VISIBLE TENDON IN WOUND AREA CONTINUE TO MONITOR DW RN AND PT AND CM HYPOMAGNESIA WILL REPLACE AGAIN Physical Exam Vital signs: Vital Signs 04/06/18 12:00 04/06/18 16:00 04/06/18 20:00 Temperature 98.2 F 98.0 F 97.6 F Pulse Rate 60 63 79 Respiratory Rate 20 20 18 Blood Pressure 135/55 L 140/50 L 165/96 H Pulse Oximetry 96 97 98 04/07/18 00:00 04/07/18 04:00 04/07/18 08:00 Temperature 97.1 F L 98.7 F 98.1 F Pulse Rate 82 59 L 74 Respiratory Rate 17 18 18 Blood Pressure 148/68 H 123/68 140/72 Pulse Oximetry 99 98 96 Intake & Output 04/06/18 04/07/18 04/07/18 18:59 06:59 18:59 Intake Total 3160 / 3160 1680 / 1680 Output Total 350 / 350 Balance 3160 / 3160 1330 / 1330 Weight 79 kg Intake: IV 2200 / 2200 1200 / 1200 NS Inj 1,000 ML @ 100 mls/hr IV 2000 / 2000 1000 / 1000 .CONT .Q10H [facility] Rx#:[id number] Unasyn Inj 1,500 MG In NS Inj 200 / 200 200 / 200 100 ML @ 200 mls/hr IV.SIG Q6H [facility] Rx#:[id number] Oral 960 / 960 480 / 480 Output: Urine 350 / 350 Other: # Voids 4 Narrative: .GENERAL: AAOx3, no acute distress SKIN: Warm and dry. Cellulitis of her right elbow and forearm HAS TENDON EXPOSED PER CLOTHESPIN MACHINE OPERATOR- SLOW HEALING HEAD: Atruamtic, normocephalic. EYES: No scleral icterus. No injection or drainage. ENT: Moist mucous membranes, patent nares, no erythema of oropharynx. NECK: Supple, trachea midline. No JVD or lymphadenopathy. Normal thyroid. CARDIOVASCULAR: Regular rate and rhythm. No murmurs, gallops, or rubs. RESPIRATORY: Breath sounds clear equal bilaterally. No crackles or wheezes. No accessory muscle use. GASTROINTESTINAL: Abdomen soft, non-tender, nondistended, normal active bowel sounds MUSCULOSKELETAL: Redness and swelling of her right elbow extending to mid forearm WITH MUCH IMPROVEMENT, NO wound VAC in place, ARM JUST DRESSED NEURO: CN II-XII grossly intact, no focal deficits, no slurring of speech Results - Labs CBC & Chem 7: 04/07/18 06:37 04/07/18 06:37 Laboratory Results - last 24 hr 04/07/18 04/07/18 06:37 06:37 WBC 6.9 RBC 3.83 L Hgb 11.9 L Hct 35.4 L MCV 92.4 MCH 31.1 MCHC 33.6 RDW 14.2 Plt Count 502 H MPV 8.0 Neut % (Auto) 57.2 Lymph % (Auto) 25.8 [place] % (Auto) 15.5 H Eos % (Auto) 0.4 Baso % (Auto) 1.1 Neut # (Auto) 4.0 Lymph # (Auto) 1.8 [place] # (Auto) 1.1 H Eos # (Auto) 0.0 Baso # (Auto) 0.1 WBC Differential . Differential Comment Auto diff final Sodium 141 Potassium 3.9 Chloride 106 Carbon Dioxide 23.0 Anion Gap 12 BUN 11 Creatinine 0.77 Estimated GFR Greater than 89 Random Glucose 74 Calcium 9.2 Phosphorus 4.7 Magnesium 1.4 L Total Bilirubin 0.2 AST 20 ALT 28 Alkaline Phosphatase 45 Total Protein 7.4 Albumin 2.5 L - Procedures Incision and drainage, debridement, application of VAC device right arm/elbow 03/31/2018, Korin Assessment and Plan - Plan Right Elbow cellulitis/Abscess antibiotics General surgery performed I&D with debridement 03/31/[address]-PT SELF DISCONTINUED TWICE- WILL NOT BE RESTARTED AGAIN PER ORTHO Blood cultures negative 3 days Wound culture grew out Eikenella corrodens, antibiotics changed to Unasyn Appreciate general surgery consult Appreciate infectious disease consult PULLED VAC OFF LAST NIGHT PULLED IV LAST NIGHT WILL HEAL BY SECONDARY INTENTION Tobacco abuse Recommended to stop Patient declined nicotine patch Alcoholism Patient denies that he gets any shakes when he has no alcohol, no signs of withdrawal Ativan as needed DVT prophylaxis Continue with SCDs, encourage ambulation HYPOKALEMIA WILL REPLACE HYPOMAGNESIA WILL REPLACE AGAIN--NEEDS REPLACEMENT AGAIN HYPERTENSION PRN CATAPRES Discharge planning Patient is currently without insurance, AM LABS NEEDS A LINE AND NO LONGER USING VAC CM FOR OUTPATIENT WOUND CARE AND PROBABLE ROCEPHIN Code Status: FULL CODE Discussed Condition With: RN AND PT AND CM Discharge Planning: PENDING IMPROVEMENT AND WHEN CAN BE SWITCHED TO PO ANTIBIOTICS
[2018-04-07] MEDS: Senna/Docusate Sodium 8.6/50 MG Tablet PO SCH ×2 (12:11→20:17)
[2018-04-07] MEDS: Mag Sulf 1 gm/100 ml Premix 100 ML IV.SIG SCH ×4 (14:19→20:16)
[2018-04-08] MEDS: Sod Chloride 0.9% Inj 1,000 ML IV.CONT SCH ×3 (00:21→21:52)
[2018-04-08] MEDS: Ampicillin/Sulbactam Inj 1,500 MG in Sodium Chloride 0.9% Inj 100 ML IV.SIG SCH ×4 (02:08→20:04)
[2018-04-08 09:14] LABS: Baso # (Auto) 0.1 th/mm3 (0.0-0.2); Baso % (Auto) 1.1 % (0.0-2.0); Eos % (Auto) 0.2 % (0.0-4.0); Hematocrit 36.7 % (39.0-51.0); Hemoglobin 12.3 gm/dL (13.0-17.0); Lymph # (Auto) 2.2 th/mm3 (1.0-4.8); Lymph % (Auto) 25.5 % (9.0-44.0); Mean Corpuscular HGB Conc 33.6 % (32.0-36.0); Mean Corpuscular Hemoglobin 30.8 pg (27.0-34.0); Mean Corpuscular Volume 91.7 fL (80.0-100.0); Mean Platelet Volume 7.9 fL (7.0-11.0); Mono # (Auto) 1.1 th/mm3 (0.0-0.9); Mono % (Auto) 13.2 % (0.0-8.0); Neut # (Auto) 5.1 th/mm3 (1.8-7.7); Platelet Count 544 th/mm3 (150-450); Red Cell Distribution Width 14.3 % (11.6-17.2); White Blood Count 8.5 th/mm3 (4.0-11.0)
[2018-04-08] MEDS: Senna/Docusate Sodium 8.6/50 MG Tablet PO SCH ×2 (09:37→20:04)
[2018-04-08 09:50] LABS: Albumin 2.8 g/dL (3.4-5.0); Anion Gap 9 meq/L (5-15); Aspartate Aminotransferase 22 U/L (15-37); Blood Urea Nitrogen 13 mg/dL (7-18); Carbon Dioxide 25.3 meq/L (21.0-32.0); Chloride 104 meq/L (98-107); Glomerular Filtration Rate 81 mL/min (>89); Glucose,Random 94 mg/dL (74-106); Magnesium 1.6 mg/dL (1.5-2.5); Potassium 4.1 meq/L (3.5-5.1); Sodium 138 meq/L (136-145)
[2018-04-08 09:52] LABS: Alanine Aminotransferase 32 U/L (12-78)
[2018-04-08 09:57] LABS: Alkaline Phosphatase 52 U/L (45-117); Phosphorus 3.6 mg/dL (2.5-4.9); Total Protein 8.1 g/dL (6.4-8.2)
--- NOTE | 2018-04-08 13:43 | P.PNIM ---
Subjective Interval history: 9- FOLLOW UP REGARDING RIGHT UE CELLULITIS BURSITIS Cellulitis and abscess of the right elbow along with olecranon bursitis. Eikenella. ON ANTIBIOTICS HAS WOUND VAC IN PLACE DW RN AND PT AND CM HAS HAD ELEVATED BLOOD PRESSURES WILL MAKE PRN CATAPRES AVAILABLE 04-05 PATIENT PULLED OUT IV AND VAC LAST NIGHT WILL SEE IF CAN BE REDRESSED LATER WITH FELT WASHING MACHINE TENDER DW CM AND PT AND RN AM LABS 04-[address] DRESSINGS PER WOUND CARE NOW CONTINUE ANTIBIOTICS IV UNTIL COMPLETE DW RN AND PT AND CM PATIENT GETS "CONFUSED" AT NIGHT AM LABS REPLACE MAGNESIUM 04-07 CONTINUE WOUND CARE AND ANTIBIOTICS DW FELT WASHING MACHINE TENDER HAS VISIBLE TENDON IN WOUND AREA CONTINUE TO MONITOR DW RN AND PT AND CM HYPOMAGNESIA WILL REPLACE AGAIN 04-08 continue current wound care and antibiotics 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 labs Physical Exam Vital signs: Vital Signs 04/07/18 16:00 04/07/18 20:00 04/08/18 00:00 Temperature 98.8 F 97.7 F 98.4 F Pulse Rate 74 76 55 L Respiratory Rate 20 16 16 Blood Pressure 150/62 H 152/96 H 152/90 H Pulse Oximetry 95 96 97 04/08/18 04:00 04/08/18 08:00 04/08/18 12:00 Temperature 97.9 F 98.3 F 98.5 F Pulse Rate 85 69 66 Respiratory Rate 16 20 20 Blood Pressure 152/100 H 152/80 H 150/80 H Pulse Oximetry 98 98 99 Intake & Output 04/07/18 04/08/18 04/08/18 18:59 06:59 18:59 Intake Total 1180 / 1180 1840 / 1840 720 / 720 Balance 1180 / 1180 1840 / 1840 720 / 720 Weight 80.9 kg Intake: IV 700 / 700 1480 / 1480 720 / 720 NS Inj 1,000 ML @ 100 mls/hr IV 300 / 300 1080 / 1080 620 / 620 .CONT .Q10H [facility] Rx#:[id number] Unasyn Inj 1,500 MG In NS Inj 200 / 200 200 / 200 100 / 100 100 ML @ 200 mls/hr IV.SIG Q6H [facility] Rx#:[id number] Magnesium Sulfate 1 gm/D5W 100 200 / 200 200 / 200 ml Premix 100 ML @ 100 mls/hr IV.SIG Q1H [facility] Rx#:[id number] Oral 480 / 480 360 / 360 Other: # Voids 3 5 # Bowel Movements 2 Narrative: .GENERAL: AAOx3, no acute distress SKIN: Warm and dry. Cellulitis of her right elbow and forearm HAS TENDON EXPOSED PER FELT WASHING MACHINE TENDER- SLOW HEALING HEAD: Atruamtic, normocephalic. EYES: No scleral icterus. No injection or drainage. ENT: Moist mucous membranes, patent nares, no erythema of oropharynx. NECK: Supple, trachea midline. No JVD or lymphadenopathy. Normal thyroid. CARDIOVASCULAR: Regular rate and rhythm. No murmurs, gallops, or rubs. RESPIRATORY: Breath sounds clear equal bilaterally. No crackles or wheezes. No accessory muscle use. GASTROINTESTINAL: Abdomen soft, non-tender, nondistended, normal active bowel sounds MUSCULOSKELETAL: Redness and swelling of her right elbow extending to mid forearm WITH MUCH IMPROVEMENT, NO wound VAC in place, ARM JUST DRESSED NEURO: CN II-XII grossly intact, no focal deficits, no slurring of speech Results - Labs CBC & Chem 7: 04/08/18 08:50 04/08/18 08:50 Laboratory Results - last 24 hr 04/08/18 04/08/18 08:50 08:50 WBC 8.5 RBC 4.00 L Hgb 12.3 L Hct 36.7 L MCV 91.7 MCH 30.8 MCHC 33.6 RDW 14.3 Plt Count 544 H MPV 7.9 Neut % (Auto) 60.0 Lymph % (Auto) 25.5 [place] % (Auto) 13.2 H Eos % (Auto) 0.2 Baso % (Auto) 1.1 Neut # (Auto) 5.1 Lymph # (Auto) 2.2 [place] # (Auto) 1.1 H Eos # (Auto) 0.0 Baso # (Auto) 0.1 WBC Differential . Differential Comment Auto diff final Sodium 138 Potassium 4.1 Chloride 104 Carbon Dioxide 25.3 Anion Gap 9 BUN 13 Creatinine 0.97 Estimated GFR 81 L Random Glucose 94 Calcium 9.0 Phosphorus 3.6 D Magnesium 1.6 Total Bilirubin 0.2 AST 22 ALT 32 Alkaline Phosphatase 52 Total Protein 8.1 D Albumin 2.8 L Microbiology 03/31/18 10:05 Tissue - Arm Fungal Smear - Final No fungal elements seen 03/31/18 10:05 Tissue - Arm Fungal Culture - Preliminary No growth in 1 week 03/31/18 10:05 Tissue - Arm Acid Fast Bacilli Smear - Final No acid fast bacilli seen 03/31/18 10:05 Tissue - Arm Mycobacterial Culture - Preliminary No growth in 1 week 03/31/18 10:05 Wound - Arm Fungal Smear - Final No fungal elements seen 03/31/18 10:05 Wound - Arm Fungal Culture - Preliminary No growth in 1 week 03/31/18 10:05 Wound - Arm Acid Fast Bacilli Smear - Final No acid fast bacilli seen 03/31/18 10:05 Wound - Arm Mycobacterial Culture - Preliminary No growth in 1 week 03/31/18 10:05 Wound - Arm Fungal Smear - Final No fungal elements seen 03/31/18 10:05 Wound - Arm Fungal Culture - Preliminary No growth in 1 week 03/31/18 10:05 Wound - Arm Acid Fast Bacilli Smear - Final No acid fast bacilli seen 03/31/18 10:05 Wound - Arm Mycobacterial Culture - Preliminary No growth in 1 week - Procedures Incision and drainage, debridement, application of VAC device right arm/elbow 03/31/2018, Korin Assessment and Plan - Plan Right Elbow cellulitis/Abscess antibiotics General surgery performed I&D with debridement 03/31/[address]-PT SELF DISCONTINUED TWICE- WILL NOT BE RESTARTED AGAIN PER ORTHO Blood cultures negative 3 days Wound culture grew out Eikenella corrodens, antibiotics changed to Unasyn Appreciate general surgery consult Appreciate infectious disease consult PULLED VAC OFF LAST NIGHT PULLED IV LAST NIGHT WILL HEAL BY SECONDARY INTENTION Tobacco abuse Recommended to stop Patient declined nicotine patch Alcoholism Patient denies that he gets any shakes when he has no alcohol, no signs of withdrawal Ativan as needed DVT prophylaxis Continue with SCDs, encourage ambulation HYPOKALEMIA WILL REPLACE HYPOMAGNESIA WILL REPLACE AGAIN--NEEDS REPLACEMENT AGAIN -We will replace one more time April 08 HYPERTENSION PRN CATAPRES Discharge planning Patient is currently without insurance, AM LABS NEEDS A LINE AND NO LONGER USING VAC CM FOR OUTPATIENT WOUND CARE AND PROBABLE ROCEPHIN Code Status: Full code Discussed Condition With: RN and patient and case management Discharge Planning: PENDING IMPROVEMENT AND WHEN CAN BE SWITCHED TO PO ANTIBIOTICS
[2018-04-08] MEDS: Mag Sulf 1 gm/100 ml Premix 100 ML IV.SIG SCH ×4 (14:13→17:50)
[2018-04-09] MEDS: Ampicillin/Sulbactam Inj 1,500 MG in Sodium Chloride 0.9% Inj 100 ML IV.SIG SCH ×4 (02:45→21:09)
[2018-04-09] MEDS: Sod Chloride 0.9% Inj 1,000 ML IV.CONT SCH ×4 (03:39→18:20)
[2018-04-09 05:17] LABS: Anion Gap 9 meq/L (5-15); Aspartate Aminotransferase 28 U/L (15-37); Blood Urea Nitrogen 14 mg/dL (7-18); Calcium 8.9 mg/dL (8.5-10.1); Carbon Dioxide 23.4 meq/L (21.0-32.0); Chloride 107 meq/L (98-107); Glomerular Filtration Rate 81 mL/min (>89); Glucose,Random 96 mg/dL (74-106); Magnesium 1.8 mg/dL (1.5-2.5); Potassium 4.7 meq/L (3.5-5.1); Sodium 139 meq/L (136-145)
[2018-04-09 05:18] LABS: Alanine Aminotransferase 38 U/L (12-78); Phosphorus 3.4 mg/dL (2.5-4.9)
[2018-04-09 05:20] LABS: Alkaline Phosphatase 60 U/L (45-117); Total Protein 8.5 g/dL (6.4-8.2)
[2018-04-09] MEDS: Senna/Docusate Sodium 8.6/50 MG Tablet PO SCH ×2 (11:36→21:09)
--- NOTE | 2018-04-09 12:08 | P.PNIM ---
Subjective Interval history: 9-5 FOLLOW UP REGARDING RIGHT UE CELLULITIS BURSITIS Cellulitis and abscess of the right elbow along with olecranon bursitis. Eikenella. ON ANTIBIOTICS HAS WOUND VAC IN PLACE DW RN AND PT AND CM HAS HAD ELEVATED BLOOD PRESSURES WILL MAKE PRN CATAPRES AVAILABLE 9-6 PATIENT PULLED OUT IV AND VAC LAST NIGHT WILL SEE IF CAN BE REDRESSED LATER WITH SOCIAL SCIENCES RESEARCH SCIENTIST DW CM AND PT AND RN AM LABS 9- VAC NO LONGER IN PLACE DRESSINGS PER WOUND CARE NOW CONTINUE ANTIBIOTICS IV UNTIL COMPLETE DW RN AND PT AND CM PATIENT GETS "CONFUSED" AT NIGHT AM LABS REPLACE MAGNESIUM 9- CONTINUE WOUND CARE AND ANTIBIOTICS DW SOCIAL SCIENCES RESEARCH SCIENTIST HAS VISIBLE TENDON IN WOUND AREA CONTINUE TO MONITOR DW RN AND PT AND CM HYPOMAGNESIA WILL REPLACE AGAIN 9- continue current wound care and antibiotics 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 labs - CONTINUE CURRENT TREATMENTS WOUND CARE AND ANTIBIOTICS HAS VISIBLE TENDON IN WOUND AREA Physical Exam Vital signs: Vital Signs 04/08/18 16:00 04/08/18 22:08 04/09/18 00:00 Temperature 98.5 F 98.6 F 98.3 F Pulse Rate 71 78 65 Respiratory Rate 20 18 16 Blood Pressure 150/86 H 171/89 H 145/75 H Pulse Oximetry 99 99 97 04/09/18 04:00 04/09/18 08:00 Temperature 98.5 F 98.1 F Pulse Rate 70 63 Respiratory Rate 18 16 Blood Pressure 152/87 H 147/84 H Pulse Oximetry 99 98 Intake & Output 04/08/18 04/09/18 04/09/18 18:59 06:59 18:59 Intake Total 1700 / 1700 1685 / 1685 100 / 100 Output Total 2 / 2 Balance 1700 / 1700 1683 / 1683 100 / 100 Weight 79.7 kg Intake: IV 1220 / 1220 1445 / 1445 100 / 100 NS Inj 1,000 ML @ 100 mls/hr IV 620 / 620 1245 / 1245 .CONT .Q10H [facility] Rx#:[id number] Unasyn Inj 1,500 MG In NS Inj 200 / 200 200 / 200 100 / 100 100 ML @ 200 mls/hr IV.SIG Q6H [facility] Rx#:[id number] Magnesium Sulfate 1 gm/D5W 100 400 / 400 ml Premix 100 ML @ 100 mls/hr IV.SIG Q1H [facility] Rx#:[id number] Oral 480 / 480 240 / 240 Output: Stool 2 / 2 Other: # Voids 3 4 Date of Last Bowel Movement 04/08/18 Narrative: .GENERAL: AAOx3, no acute distress SKIN: Warm and dry. Cellulitis of her right elbow and forearm HAS TENDON EXPOSED PER SOCIAL SCIENCES RESEARCH SCIENTIST- SLOW HEALING HEAD: Atruamtic, normocephalic. EYES: No scleral icterus. No injection or drainage. ENT: Moist mucous membranes, patent nares, no erythema of oropharynx. NECK: Supple, trachea midline. No JVD or lymphadenopathy. Normal thyroid. CARDIOVASCULAR: Regular rate and rhythm. No murmurs, gallops, or rubs. RESPIRATORY: Breath sounds clear equal bilaterally. No crackles or wheezes. No accessory muscle use. GASTROINTESTINAL: Abdomen soft, non-tender, nondistended, normal active bowel sounds MUSCULOSKELETAL: Redness and swelling of her right elbow extending to mid forearm WITH MUCH IMPROVEMENT, NO wound VAC in place, ARM JUST DRESSED NEURO: CN II-XII grossly intact, no focal deficits, no slurring of speech Results - Labs CBC & Chem 7: 04/08/18 08:50 04/09/18 04:53 Laboratory Results - last 24 hr 04/09/18 04:53 Sodium 139 Potassium 4.7 Chloride 107 Carbon Dioxide 23.4 Anion Gap 9 BUN 14 Creatinine 0.97 Estimated GFR 81 L Random Glucose 96 Calcium 8.9 Phosphorus 3.4 Magnesium 1.8 Total Bilirubin 0.2 AST 28 ALT 38 Alkaline Phosphatase 60 Total Protein 8.5 H Albumin 3.0 L - Procedures Incision and drainage, debridement, application of VAC device right arm/elbow 03/31/2018, Korin Assessment and Plan - Plan Right Elbow cellulitis/Abscess antibiotics General surgery performed I&D with debridement 03/31/[address]-PT SELF DISCONTINUED TWICE- WILL NOT BE RESTARTED AGAIN PER ORTHO Blood cultures negative 3 days Wound culture grew out Eikenella corrodens, antibiotics changed to Unasyn Appreciate general surgery consult Appreciate infectious disease consult PULLED VAC OFF LAST NIGHT PULLED IV LAST NIGHT WILL HEAL BY SECONDARY INTENTION Tobacco abuse Recommended to stop Patient declined nicotine patch Alcoholism Patient denies that he gets any shakes when he has no alcohol, no signs of withdrawal Ativan as needed DVT prophylaxis Continue with SCDs, encourage ambulation HYPOKALEMIA WILL REPLACE HYPOMAGNESIA WILL REPLACE AGAIN--NEEDS REPLACEMENT AGAIN -We will replace one more time April 08 HYPERTENSION PRN CATAPRES Discharge planning Patient is currently without insurance, AM LABS NEEDS A LINE AND NO LONGER USING VAC CM FOR OUTPATIENT WOUND CARE AND PROBABLE ROCEPHIN Code Status: FULL CODE Discussed Condition With: RN AND PT AND CM Discharge Planning: PENDING IMPROVEMENT AND WHEN CAN BE SWITCHED TO PO ANTIBIOTICS
[2018-04-10] MEDS: Ampicillin/Sulbactam Inj 1,500 MG in Sodium Chloride 0.9% Inj 100 ML IV.SIG SCH ×4 (02:10→20:19)
[2018-04-10] MEDS: Sod Chloride 0.9% Inj 1,000 ML IV.CONT SCH ×2 (04:41→13:15)
[2018-04-10] MEDS: Senna/Docusate Sodium 8.6/50 MG Tablet PO SCH ×2 (09:17→20:49)
--- NOTE | 2018-04-10 13:51 | P.PNIM ---
Subjective Interval history: 9-5 FOLLOW UP REGARDING RIGHT UE CELLULITIS BURSITIS Cellulitis and abscess of the right elbow along with olecranon bursitis. Eikenella. ON ANTIBIOTICS HAS WOUND VAC IN PLACE DW RN AND PT AND CM HAS HAD ELEVATED BLOOD PRESSURES WILL MAKE PRN CATAPRES AVAILABLE 9-6 PATIENT PULLED OUT IV AND VAC LAST NIGHT WILL SEE IF CAN BE REDRESSED LATER WITH INVENTORY AUDITOR DW CM AND PT AND RN AM LABS 9-7 V[address] DRESSINGS PER WOUND CARE NOW CONTINUE ANTIBIOTICS IV UNTIL COMPLETE DW RN AND PT AND CM PATIENT GETS "CONFUSED" AT NIGHT AM LABS REPLACE MAGNESIUM 9-8 CONTINUE WOUND CARE AND ANTIBIOTICS DW INVENTORY AUDITOR HAS VISIBLE TENDON IN WOUND AREA CONTINUE TO MONITOR DW RN AND PT AND CM HYPOMAGNESIA WILL REPLACE AGAIN 9- continue current wound care and antibiotics Her temple marker has visible tendon wound area Check electrolytes We will replace magnesium again in a.m. labs 9- CONTINUE CURRENT TREATMENTS WOUND CARE AND ANTIBIOTICS HAS VISIBLE TENDON IN WOUND AREA 9- CONTINUE ANTIBIOTICS AND WOUND CARE TREATMENTS NO NEW COMPLAINTS Physical Exam Vital signs: Vital Signs 04/09/18 16:00 04/09/18 20:00 04/10/18 00:00 Temperature 98.0 F 98.5 F 98.3 F Pulse Rate 55 L 63 50 L Respiratory Rate 18 17 18 Blood Pressure 145/75 H 152/71 H 162/81 H Pulse Oximetry 97 98 99 04/10/18 04:00 04/10/18 08:00 Temperature 97.8 F 97.9 F Pulse Rate 63 74 Respiratory Rate 15 20 Blood Pressure 149/70 H 159/94 H Pulse Oximetry 97 100 Intake & Output 04/09/18 04/10/18 04/10/18 18:59 06:59 18:59 Intake Total 1865 / 1865 990 / 990 Balance 1865 / 1865 990 / 990 Weight 77.4 kg Intake: IV 1405 / 1405 750 / 750 NS Inj 1,000 ML @ 100 mls/hr IV 1205 / 1205 550 / 550 .CONT .Q10H MIGUEL ANGEL Rx#:[id number] Unasyn Inj 1,500 MG In NS Inj 200 / 200 200 / 200 100 ML @ 200 mls/hr IV.SIG Q6H MIGU[facility] ANGEL Rx#:[id number] Oral 460 / 460 240 / 240 Other: # Voids 5 3 Date of Last Bowel Movement 04/08/18 # Bowel Movements 0 Narrative: .GENERAL: AAOx3, no acute distress SKIN: Warm and dry. Cellulitis of her right elbow and forearm HAS TENDON EXPOSED PER INVENTORY AUDITOR- SLOW HEALING HEAD: Atruamtic, normocephalic. EYES: No scleral icterus. No injection or drainage. ENT: Moist mucous membranes, patent nares, no erythema of oropharynx. NECK: Supple, trachea midline. No JVD or lymphadenopathy. Normal thyroid. CARDIOVASCULAR: Regular rate and rhythm. No murmurs, gallops, or rubs. RESPIRATORY: Breath sounds clear equal bilaterally. No crackles or wheezes. No accessory muscle use. GASTROINTESTINAL: Abdomen soft, non-tender, nondistended, normal active bowel sounds MUSCULOSKELETAL: Redness and swelling of her right elbow extending to mid forearm WITH MUCH IMPROVEMENT, NO wound VAC in place, ARM JUST DRESSED NEURO: CN II-XII grossly intact, no focal deficits, no slurring of speech Results - Labs CBC & Chem 7: 04/08/18 08:50 04/09/18 04:53 - Procedures Incision and drainage, debridement, application of VAC device right arm/elbow 03/31/2018, [place]in Assessment and Plan - Plan Right Elbow cellulitis/Abscess antibiotics General surgery performed I&D with debridement 03/31/[address]-PT SELF DISCONTINUED TWICE- WILL NOT BE RESTARTED AGAIN PER ORTHO Blood cultures negative 3 days Wound culture grew out Eikenella corrodens, antibiotics changed to Unasyn Appreciate general surgery consult Appreciate infectious disease consult PULLED VAC OFF TWICE PULLED IV LAST NIGHT WILL HEAL BY SECONDARY INTENTION Tobacco abuse Recommended to stop Patient declined nicotine patch Alcoholism Patient denies that he gets any shakes when he has no alcohol, no signs of withdrawal Ativan as needed DVT prophylaxis Continue with SCDs, encourage ambulation HYPOKALEMIA WILL REPLACE HYPOMAGNESIA WILL REPLACE AGAIN--NEEDS REPLACEMENT AGAIN -We will replace one more time April 08 HYPERTENSION PRN CATAPRES Discharge planning Patient is currently without insurance, AM LABS NEEDS A LINE AND NO LONGER USING VAC CM FOR OUTPATIENT WOUND CARE AND ANTIBIOTICS Code Status: FULL CODE Discussed Condition With: RN AND PT AND CM Discharge Planning: PENDING IMPROVEMENT AND WHEN CAN BE SWITCHED TO PO ANTIBIOTICS
[2018-04-11] MEDS: Ampicillin/Sulbactam Inj 1,500 MG in Sodium Chloride 0.9% Inj 100 ML IV.SIG SCH ×4 (03:02→20:59)
[2018-04-11] MEDS: Sod Chloride 0.9% Inj 1,000 ML IV.CONT SCH ×3 (03:02→21:00)
[2018-04-11] MEDS: Senna/Docusate Sodium 8.6/50 MG Tablet PO SCH ×2 (09:54→21:00)
--- NOTE | 2018-04-11 12:31 | P.PNWCN ---
Wound Care Nurse Consult Description: Late entry from 04/10/2018: Patient seen for follow up of R elbow wound management per consult from Doctor Carreon Communicated with: Late entry from 04/10/2018: ANGEL ochoa and Doctor Carreon Recommendation: Late entry from 04/10/2018: Please leave puracol Ag in place to wound bed for 5 days and may change Maxorb II, Optifoam basic, ABD pad, rolled gauze and FABIAN wrap PRN if saturated or dislodged. If purcol becomes dislodged or after dressing has been in place for 5 days, please cleanse wound to R elbow with normal saline and cut puracol AG to fit wound bed. Apply hydrogel to exposed tendon and pack puracol plus to wound bed. Cover wound with Maxorb II cut to fit over wound bed, optifoam basic, and ABD pad. Secure dressing with rolled gauze and Fabian wrap. change every 5 days Wound/Pressure Injury - Patient Status Premedicated for Pain Prior to Dressing Change: No - Wound Right Elbow Wound Assessment: Ongoing Wound Type: Abrasion Is This a Chronic Wound: Yes Requested from Provider a Wound Care Consult: Yes Length: 2 (cm) Width: 2.2 (cm) Depth: 0.8 (cm) Wound Bed Appearance: [place], Tunneling/Undermining (From 7 to 1 o'clock deepest at 1 measuring 4), White Wound Bed Appearance: Wound bed presents with ~20% loose exposed tendon and facia and ~60% pale pink tissue, 20% red granulation tissue Surrounding Tissue Appearance: Erythema Surrounding Tissue Temperature: Warm Drainage Description: Serosanguinous Drainage Amount: Minimal Dressing Status: Changed (Late entry from 04/10/2018) Cleansing Solution: Saline Topical: hydrogel to exposed tendon Wound Packing Type: Collagen (puracol AG) Primary Dressing: Maxorb II, and optifoam basic Cover Dressing: ABD pad, rolled gauze and FABIAN wrap Tape Type: Paper Wound Dressing Change Date: 04/10/18 Wound Margin Description: well defined with some thickening - Additional Information Late entry from 04/10/2018:Patient seen on [address] [place] [address] for wound management of R elbow, Patient seen on [address] [place] [address] for follow up of wound management of R elbow. Removed dressing placed on 04/05/2018 by short story writer to reveal open wound to elbow with dry intact sutures noted at 12 o'clock and 6 o'clock to periwound. Wound description and measurements are noted above. Cleansed wound with normal saline and patted dry. Applied small pea sized amount of hydrogel over exposed tendon Puracol AG was then packed loosely to wound bed and covered with Maxorb II that was cut to fit over wound bed. Covered wound with optifoam basic, secured dressings with ABD pad, rolled gauze and FABIAN wrap. Patinet tolerated dressing change well. Doctor Carreon assessed wound at bedside.
--- NOTE | 2018-04-11 14:25 | P.PNIM ---
Subjective Interval history: Increasing range of motion and right elbow. Wound vac off. Pain controlled. Physical Exam Vital signs: Vital Signs 04/10/18 16:00 04/10/18 20:00 04/10/18 20:19 Temperature 98.2 F 98.1 F Pulse Rate 72 82 Respiratory Rate 18 6 L Blood Pressure 145/35 H 152/64 H Pulse Oximetry 96 98 04/11/18 00:00 04/11/18 04:00 04/11/18 08:00 Temperature 98.0 F 97.6 F 98.3 F Pulse Rate 60 66 67 Respiratory Rate 19 19 20 Blood Pressure 134/78 144/64 H 184/85 H Pulse Oximetry 98 97 99 Intake & Output 04/10/18 04/11/18 04/11/18 18:59 06:59 18:59 Intake Total 1680 / 1680 1680 / 1680 755 / 755 Output Total 4077 / 4077 Balance 1680 / 1680 -2397 / -2397 755 / 755 Weight 82.1 kg Intake: IV 1200 / 1200 1200 / 1200 755 / 755 NS Inj 1,000 ML @ 100 mls/hr IV 1000 / 1000 1000 / 1000 755 / 755 .CONT .Q10H MIGUEL ANGEL Rx#:[id number] Unasyn Inj 1,500 MG In NS Inj 200 / 200 200 / 200 100 ML @ 200 mls/hr IV.SIG Q6H [facility]IGUEL ANGEL Rx#:[id number] Oral 480 / 480 480 / 480 Output: Urine 350 / 350 Stool 2 / 2 Urine/Stool Mix 3675 / 3675 Estimated Blood Loss 50 / 50 Other: Mode Setting Right Elbow Continuous Continuous # Voids 4 4 Date of Last Bowel Movement 04/08/18 # Bowel Movements 0 Narrative: GENERAL: NAD, A&Ox3 HEAD: Normocephalic. NECK: Supple, trachea midline. No lymphadenopathy. EYES: No scleral icterus. No injection or drainage. CARDIOVASCULAR: Regular rate and rhythm without murmurs, gallops, or rubs. RESPIRATORY: Breath sounds equal bilaterally. No accessory muscle use. GASTROINTESTINAL: Abdomen soft, non-tender, nondistended. MUSCULOSKELETAL: No cyanosis, or edema. Right elbow bandaged. SKIN: Warm and dry. NEURO: No focal neurological deficits. Results - Labs CBC & Chem 7: 04/08/18 08:50 04/09/18 04:53 - Procedures Incision and drainage, debridement, application of VAC device right arm/elbow 03/31/2018, Korin Assessment and Plan - Plan 53 year old male admitted with right elbow cellulitis and abscess Right Elbow cellulitis/Abscess Continue IV antibiotics (Unasyn) General surgery performed I&D with debridement 03/31/2018 Surgery following ID following WILL HEAL BY SECONDARY INTENTION Tobacco abuse Recommended to stop Patient declined nicotine patch Alcoholism no signs of withdrawal Ativan as needed DVT prophylaxis Continue with SCDs HYPOKALEMIA HYPOMAGNESIA Monitor and replace as needed HYPERTENSION PRN CATAPRES Discharge Planning: Pending change to PO antibiotics and ID clearance
--- NOTE | 2018-04-11 17:06 | P.PNOP ---
Subjective Interval history: POD #12 Incision and drainage, debridement, application of VAC device right arm/ elbow Pt awake and alert sitting upright in bed. Wound vac has now been off for several days. school examiner saw pt yesterday and changed dressing. Physical Exam Vital signs: Vital Signs 04/10/18 20:00 18 20:19 04/11/18 00:00 Temperature 98.1 F 98.0 F Pulse Rate 82 60 Respiratory Rate 18 6 L 19 Blood Pressure 152/64 H 134/78 Pulse Oximetry 98 98 04/11/18 04:00 04/11/18 08:00 Temperature 97.6 F 98.3 F Pulse Rate 66 67 Respiratory Rate 19 20 Blood Pressure 144/64 H 184/85 H Pulse Oximetry 97 99 Intake & Output 04/10/18 04/11/18 04/11/18 18:59 06:59 18:59 Intake Total 1680 / 1680 1680 / 1680 955 / 955 Output Total 4077 / 4077 Balance 1680 / 1680 -2397 / -2397 955 / 955 Weight 82.1 kg Intake: IV 1200 / 1200 1200 / 1200 955 / 955 NS Inj 1,000 ML @ 100 mls/hr IV 1000 / 1000 1000 / 1000 755 / 755 .CONT .Q10H MIGUEL ANGEL Rx#:[id number] Unasyn Inj 1,500 MG In NS Inj 200 / 200 200 / 200 200 / 200 100 ML @ 200 mls/hr IV.SIG Q6H MIGUEL ANGEL Rx#:[id number] Oral 480 / 480 480 / 480 Output: Urine 350 / 350 Stool 2 / 2 Urine/Stool Mix 3675 / 3675 Estimated Blood Loss 50 / 50 Other: Mode Setting Right Elbow Continuous Continuous # Voids 4 4 Date of Last Bowel Movement 04/08/18 # Bowel Movements 0 Narrative: RUE: Top of pari wrap was lifted up, proximal sutures appear to be in good position, incision line well healed, wound opening has fibrinous exudate over elbow, no bleeding, no foul odor, discharge noted on bandage, appears to be in lowered position/loosened before I examined pt, no pain with ROM of elbow, NVI Results - Labs CBC & Chem 7: 04/08/18 08:50 04/09/18 04:53 - Procedures Incision and drainage, debridement, application of VAC device right arm/elbow 03/31/2018, [place] Assessment and Plan - Problem List (1) Cellulitis Code(s): L03.90 - Cellulitis, unspecified Status: Acute Qualifiers: Site of cellulitis: extremity Site of cellulitis of extremity: upper extremity Laterality: right Qualified Code(s): L03.113 - Cellulitis of right upper limb (2) Bursitis due to bacterial infection Code(s): M71.10 - Other infective bursitis, unspecified site; B96.89 - Other specified bacterial agents as the cause of diseases classified elsewhere Status: Acute (3) Abscess Code(s): L02.91 - Cutaneous abscess, unspecified Status: Acute - Assessment and Plan POD #12 Incision and drainage, debridement, application of VAC device right arm/ elbow Ortho status stable Ok for ROM of elbow Ok to d/c sutures at next dressing change May consider changing dressing sooner than 5 days as it appears dressing has shifted (before I fully examined wound). Discussion was had with RN to speak with wound RN. Discontinue VAC treatment secondary to patient's noncompliance. Dressing changes per wound care - Ortho would encourage dressing changes sooner than 5 days. Every 2-3 days is preferable Clear for d/c from orthopedic standpoint once cleared medically. Pt will require f/u at a wound care clinic.
[2018-04-12] MEDS: Ampicillin/Sulbactam Inj 1,500 MG in Sodium Chloride 0.9% Inj 100 ML IV.SIG SCH ×4 (03:29→20:45)
[2018-04-12] MEDS: Sod Chloride 0.9% Inj 1,000 ML IV.CONT SCH ×2 (05:56→18:20)
[2018-04-12] MEDS: Senna/Docusate Sodium 8.6/50 MG Tablet PO SCH ×2 (09:09→20:45)
--- NOTE | 2018-04-12 10:16 | P.PNIM ---
Subjective Interval history: No new complaints from the patient. Gradual improvements in range of motion of right elbow. No fevers overnight. Physical Exam Vital signs: Vital Signs 04/11/18 12:00 04/11/18 16:00 04/11/18 20:00 Temperature 98.0 F 98.1 F 97.8 F Pulse Rate 78 90 76 Respiratory Rate 20 20 20 Blood Pressure 146/87 H 146/91 H 142/62 H Pulse Oximetry 98 97 98 04/12/18 00:00 04/12/18 04:00 04/12/18 08:00 Temperature 97.8 F 97.6 F 98.4 F Pulse Rate 60 62 97 H Respiratory Rate 19 19 20 Blood Pressure 102/78 148/64 H 176/96 H Pulse Oximetry 99 98 100 Intake & Output 04/11/18 04/12/18 04/12/18 18:59 06:59 18:59 Intake Total 2155 / 2155 2675 / 2675 100 / 100 Balance 2155 / 2155 2675 / 2675 100 / 100 Weight 82.6 kg Intake: IV 955 / 955 1955 / 1955 100 / 100 NS Inj 1,000 ML @ 100 mls/hr IV 755 / 755 1755 / 1755 .CONT .Q10H MIGUEL ANGEL Rx#:[id number] Unasyn Inj 1,500 MG In NS Inj 200 / 200 200 / 200 100 / 100 100 ML @ 200 mls/hr IV.SIG Q6H MIGUEL ANGEL Rx#:[id number] Oral 1200 / 1200 720 / 720 Other: Mode Setting Right Elbow Continuous # Voids 4 5 # Bowel Movements 2 2 Narrative: GENERAL: NAD, A&Ox3 HEAD: Normocephalic. NECK: Supple, trachea midline. No lymphadenopathy. EYES: No scleral icterus. No injection or drainage. CARDIOVASCULAR: Regular rate and rhythm without murmurs, gallops, or rubs. RESPIRATORY: Breath sounds equal bilaterally. No accessory muscle use. GASTROINTESTINAL: Abdomen soft, non-tender, nondistended. MUSCULOSKELETAL: No cyanosis, or edema. Elbow bandage. SKIN: Warm and dry. NEURO: No focal neurological deficits. Results - Labs CBC & Chem 7: 04/08/18 08:50 04/09/18 04:53 - Procedures Incision and drainage, debridement, application of VAC device right arm/elbow 03/31/2018[place] Assessment and Plan - Plan 53 year old male admitted with right elbow cellulitis and abscess Right Elbow cellulitis/Abscess Continue IV antibiotics (Unasyn) General surgery performed I&D with debridement 03/31/2018 Cleared by orthopedic surgeons for discharge on 04/12/2018. Surgery following ID following WILL HEAL BY SECONDARY INTENTION Tobacco abuse Recommended to stop Patient declined nicotine patch Alcoholism no signs of withdrawal Ativan as needed DVT prophylaxis Continue with SCDs HYPOKALEMIA HYPOMAGNESIA Monitor and replace as needed HYPERTENSION PRN CATAPRES Discharge Planning: Orthopedic surgeons have cleared this patient for discharge Discharge pending change to PO antibiotics and ID clearance
[2018-04-13] MEDS: Sod Chloride 0.9% Inj 1,000 ML IV.CONT SCH (00:46)
[2018-04-13] MEDS: Ampicillin/Sulbactam Inj 1,500 MG in Sodium Chloride 0.9% Inj 100 ML IV.SIG SCH ×4 (03:27→22:26)
[2018-04-13] MEDS: Senna/Docusate Sodium 8.6/50 MG Tablet PO SCH ×2 (10:02→22:27)
--- NOTE | 2018-04-13 10:24 | P.PNIM ---
Subjective Interval history: No complaints today. No fevers overnight. IV antibiotics continue until 2012. Physical Exam Vital signs: Vital Signs 04/12/18 12:00 04/12/18 16:00 04/12/18 20:00 Temperature 98.4 F 98.2 F 98.2 F Pulse Rate 97 H 74 73 Respiratory Rate 20 21 18 Blood Pressure 124/82 132/80 150/69 H Pulse Oximetry 97 95 96 04/13/18 00:00 04/13/18 04:00 04/13/18 08:00 Temperature 98.4 F 98.2 F 98.1 F Pulse Rate 54 L 60 64 Respiratory Rate 16 18 20 Blood Pressure 140/88 142/84 H 140/62 Pulse Oximetry 96 97 97 Intake & Output 04/12/18 04/13/18 04/13/18 18:59 06:59 18:59 Intake Total 1520 / 1520 1724 / 1724 Balance 1520 / 1520 1724 / 1724 Weight 81.1 kg Intake: IV 800 / 800 1724 / 1724 NS Inj 1,000 ML @ 100 mls/hr IV 600 / 600 1524 / 1524 .CONT .Q10H MIGUEL ANGEL Rx#:[id number] Unasyn Inj 1,500 MG In NS Inj 200 / 200 200 / 200 100 ML @ 200 mls/hr IV.SIG Q6H MIGUEL ANGEL Rx#:[id number] Oral 720 / 720 Other: Date of Last Bowel Movement 04/12/18 Narrative: GENERAL: NAD, A&Ox3 HEAD: Normocephalic. NECK: Supple, trachea midline. No lymphadenopathy. EYES: No scleral icterus. No injection or drainage. CARDIOVASCULAR: Regular rate and rhythm without murmurs, gallops, or rubs. RESPIRATORY: Breath sounds equal bilaterally. No accessory muscle use. GASTROINTESTINAL: Abdomen soft, non-tender, nondistended. MUSCULOSKELETAL: No cyanosis, or edema. Elbow bandage. SKIN: Warm and dry. NEURO: No focal neurological deficits. Results - Labs CBC & Chem 7: 04/08/18 08:50 04/09/18 04:53 - Procedures Incision and drainage, debridement, application of VAC device right arm/elbow 03/31/2018, [place] Assessment and Plan - Plan 53 year old male admitted with right elbow cellulitis and abscess No acute changes overnight. Antibiotics to continue until 04/16/2018. Right Elbow cellulitis/Abscess Continue IV antibiotics (Unasyn) General surgery performed I&D with debridement 03/31/2018 Cleared by orthopedic surgeons for discharge on 04/12/2018. Antibiotics to continue until 04/16/2018 Surgery following ID following WILL HEAL BY SECONDARY INTENTION Tobacco abuse Recommended to stop Patient declined nicotine patch Alcoholism no signs of withdrawal Ativan as needed DVT prophylaxis Continue with SCDs HYPOKALEMIA HYPOMAGNESIA Monitor and replace as needed HYPERTENSION PRN CATAPRES Discharge Planning: Orthopedic surgeons have cleared this patient for discharge Discharge pending change to PO antibiotics and ID clearance
[2018-04-14] MEDS: Ampicillin/Sulbactam Inj 1,500 MG in Sodium Chloride 0.9% Inj 100 ML IV.SIG SCH ×4 (02:39→21:42)
[2018-04-14] MEDS: Senna/Docusate Sodium 8.6/50 MG Tablet PO SCH ×2 (10:21→21:43)
--- NOTE | 2018-04-14 11:35 | P.PNIM ---
Subjective Interval history: Improved range of motion with right elbow. Pain control. No new complaints from patient. Physical Exam Vital signs: Vital Signs 04/13/18 12:00 04/13/18 16:00 04/13/18 20:00 Temperature 98.6 F 98.6 F 97.8 F Pulse Rate 81 110 H 88 Respiratory Rate 21 21 16 Blood Pressure 150/92 H 140/62 150/96 H Pulse Oximetry 97 97 96 04/14/18 00:00 04/14/18 04:00 04/14/18 08:00 Temperature 97.4 F L 98.2 F 97.9 F Pulse Rate 68 64 48 L Respiratory Rate 18 18 20 Blood Pressure 170/96 H 155/84 H 173/86 H Pulse Oximetry 98 96 99 Intake & Output 04/13/18 04/14/18 04/14/18 18:59 06:59 18:59 Intake Total 911 / 911 680 / 680 100 / 100 Balance 911 / 911 680 / 680 100 / 100 Weight 81.6 kg Intake: IV 431 / 431 200 / 200 100 / 100 NS Inj 1,000 ML @ 100 mls/hr IV 231 / 231 .CONT .Q10H MIGUEL ANGEL Rx#:[id number] Unasyn Inj 1,500 MG In NS Inj 200 / 200 200 / 200 100 / 100 100 ML @ 200 mls/hr IV.SIG Q6H MIGUEL ANGEL Rx#:[id number] Oral 480 / 480 480 / 480 Other: # Voids 3 2 Date of Last Bowel Movement 04/12/18 # Bowel Movements 1 Narrative: GENERAL: NAD, A&Ox3 HEAD: Normocephalic. NECK: Supple, trachea midline. No lymphadenopathy. EYES: No scleral icterus. No injection or drainage. CARDIOVASCULAR: Regular rate and rhythm without murmurs, gallops, or rubs. RESPIRATORY: Breath sounds equal bilaterally. No accessory muscle use. GASTROINTESTINAL: Abdomen soft, non-tender, nondistended. MUSCULOSKELETAL: No cyanosis, or edema. Elbow bandage. SKIN: Warm and dry. NEURO: No focal neurological deficits. Results - Labs CBC & Chem 7: 04/08/18 08:50 04/09/18 04:53 - Procedures Incision and drainage, debridement, application of VAC device right arm/elbow 03/31/2018, [place] Assessment and Plan - Plan 53 year old male admitted with right elbow cellulitis and abscess Patient doing well. He should be stable for discharge once antibiotic treatments completed. No acute changes overnight. Antibiotics to continue until 04/16/2018. Right Elbow cellulitis/Abscess Continue IV antibiotics (Unasyn) General surgery performed I&D with debridement 03/31/2018 Cleared by orthopedic surgeons for discharge on 04/12/2018. Antibiotics to continue until 04/16/2018 Surgery following ID following WILL HEAL BY SECONDARY INTENTION Tobacco abuse Recommended to stop Patient declined nicotine patch Alcoholism no signs of withdrawal Ativan as needed DVT prophylaxis Continue with SCDs HYPOKALEMIA HYPOMAGNESIA Monitor and replace as needed HYPERTENSION PRN CATAPRES Discharge Planning: Orthopedic surgeons have cleared this patient for discharge Discharge pending change to PO antibiotics and ID clearance
[2018-04-15] MEDS: Ampicillin/Sulbactam Inj 1,500 MG in Sodium Chloride 0.9% Inj 100 ML IV.SIG SCH ×4 (03:11→21:38)
[2018-04-15] MEDS: Senna/Docusate Sodium 8.6/50 MG Tablet PO SCH ×2 (08:03→21:39)
--- NOTE | 2018-04-15 11:48 | P.PNIM ---
Subjective Interval history: No changes. Patient doing well. Antibiotics treatment to be completed tomorrow. Physical Exam Vital signs: Vital Signs 04/14/18 12:00 04/14/18 16:00 04/14/18 20:00 Temperature 98.0 F 97.9 F 98.1 F Pulse Rate 78 71 78 Respiratory Rate 18 20 20 Blood Pressure 171/102 H 137/88 135/71 Pulse Oximetry 98 99 96 04/14/18 22:11 04/15/18 00:00 04/15/18 03:41 Temperature 97.6 F Pulse Rate 54 L Respiratory Rate 18 20 20 Blood Pressure 133/66 Pulse Oximetry 97 04/15/18 04:00 04/15/18 08:00 04/15/18 09:27 Temperature 98.2 F 98.8 F Pulse Rate 77 65 Respiratory Rate 18 20 Blood Pressure 157/83 H 174/88 H 140/84 Pulse Oximetry 100 98 Intake & Output 04/14/18 04/15/18 04/15/18 18:59 06:59 18:59 Intake Total 920 / 920 680 / 680 100 / 100 Balance 920 / 920 680 / 680 100 / 100 Weight 81.2 kg Intake: IV 200 / 200 200 / 200 100 / 100 Unasyn Inj 1,500 MG In NS Inj 200 / 200 200 / 200 100 / 100 100 ML @ 200 mls/hr IV.SIG Q6H MIGUEL ANGEL Rx#:[id number] Oral 720 / 720 480 / 480 Other: # Voids 5 3 Date of Last Bowel Movement 04/14/18 # Bowel Movements 2 2 Narrative: GENERAL: NAD, A&Ox3 HEAD: Normocephalic. NECK: Supple, trachea midline. No lymphadenopathy. EYES: No scleral icterus. No injection or drainage. CARDIOVASCULAR: Regular rate and rhythm without murmurs, gallops, or rubs. RESPIRATORY: Breath sounds equal bilaterally. No accessory muscle use. GASTROINTESTINAL: Abdomen soft, non-tender, nondistended. MUSCULOSKELETAL: No cyanosis, or edema. Elbow bandage. SKIN: Warm and dry. NEURO: No focal neurological deficits. Results - Labs CBC & Chem 7: 04/08/18 08:50 04/09/18 04:53 Microbiology 03/31/18 10:05 Tissue - Arm Fungal Smear - Final No fungal elements seen 03/31/18 10:05 Tissue - Arm Fungal Culture - Preliminary No growth in 2 weeks 03/31/18 10:05 Tissue - Arm Acid Fast Bacilli Smear - Final No acid fast bacilli seen 03/31/18 10:05 Tissue - Arm Mycobacterial Culture - Preliminary No growth in 2 weeks 03/31/18 10:05 Wound - Arm Fungal Smear - Final No fungal elements seen 03/31/18 10:05 Wound - Arm Fungal Culture - Preliminary No growth in 2 weeks 03/31/18 10:05 Wound - Arm Acid Fast Bacilli Smear - Final No acid fast bacilli seen 03/31/18 10:05 Wound - Arm Mycobacterial Culture - Preliminary No growth in 2 weeks 03/31/18 10:05 Wound - Arm Fungal Smear - Final No fungal elements seen 03/31/18 10:05 Wound - Arm Fungal Culture - Preliminary No growth in 2 weeks 03/31/18 10:05 Wound - Arm Acid Fast Bacilli Smear - Final No acid fast bacilli seen 03/31/18 10:05 Wound - Arm Mycobacterial Culture - Preliminary No growth in 2 weeks - Procedures Incision and drainage, debridement, application of VAC device right arm/elbow 03/31/2018, Korin Assessment and Plan - Plan 53 year old male admitted with right elbow cellulitis and abscess No acute changes overnight. He should be stable for discharge once antibiotic treatments completed. No acute changes overnight. Antibiotics to continue until 04/16/2018. Right Elbow cellulitis/Abscess Continue IV antibiotics (Unasyn) General surgery performed I&D with debridement 03/31/2018 Cleared by orthopedic surgeons for discharge on 04/12/2018. Antibiotics to continue until 04/16/2018 Surgery following ID following WILL HEAL BY SECONDARY INTENTION Tobacco abuse Recommended to stop Patient declined nicotine patch Alcoholism no signs of withdrawal Ativan as needed DVT prophylaxis Continue with SCDs HYPOKALEMIA HYPOMAGNESIA Monitor and replace as needed HYPERTENSION PRN CATAPRES Discharge Planning: Orthopedic surgeons have cleared this patient for discharge Discharge pending change to PO antibiotics and ID clearance
[2018-04-16] MEDS: Ampicillin/Sulbactam Inj 1,500 MG in Sodium Chloride 0.9% Inj 100 ML IV.SIG SCH ×2 (03:00→09:55)
--- NOTE | 2018-04-16 11:27 | P.DCO ---
- Home Health Nursing Order: Signs/symptoms of disease process, Wound care and dressing changes Instructions: Hydrogel over tendon. PurocelAG in wound bed. Layers: Mxorb>Optiderm>ABD> Rolled Gauze>Fabian Bandage. - Certification I have seen patient Karri Barrios on 04/16/18. My clinical findings support the need for the requested home health care services because: Infection with risk of complications I certify that my clinical findings support that this patient is homebound because: Unable to use public transportation
--- NOTE | 2018-04-16 11:29 | P.DS ---
Date of admission: 03/30/18 17:02 Primary care physician: No Primary Care Physician Brief History from admission: This is a pleasant 53-year-old male the presents to the ED for evaluation of right elbow swelling and pain. Per patient has had this since he had a fall on that elbow about a week ago. Per patient after the fall he was not able to move it fully and had some pain in it but he thought that it will get better. He had an abrasion on the olecranon area and has noted that he has been getting some more swelling and redness with difficulty moving the elbow since that has progressively getting worse to the point today were the elbow is almost twice the size of the left one. He denies any fevers chills or sweats. He denies any other medical issues. Takes no medications and has no PCP. He denies any history of IV drug abuse or MRSA. He does have a history of cellulitis in the past. Has been admitted in the past for infections in the past. He denies any numbness, tingling, weakness. Able to move all fingers. No chest pain or shortness of breath. He does appear to have an area of purulence on the olecranon area where she is actively draining pus. This area is about 4 cm in length. Pain per patient is 5 out of 10 at worst with touch. DS: Medications - Discharge Medications Prescriptions: hydrocodone-acetaminophen 1 tab PO Q4H PRN #20 tab PRN Reason: Pain DS: Summary Hospital Course: Mr. Barrios is a 53-year-old male. He came in after having a skin injury which developed into a cellulitis of the right elbow. Abscess was present also. Patient had a have I&D. Resulting wound was down to the elbow. Wound VAC was used for several days after the surgical procedure. Patient was treated with Unasyn IV. 2 weeks of Unasyn IV as recommended by ID. Patient completed this treatment today on 04/16/2018. Wound VAC is subsequently been discontinued. Patient now just needs dressing changes daily. Outpatient home health care ordered. He is medically stable and cleared for discharge home at this point. Discharge home today. - Time Spent with Patient Total time spent providing and/or coordinating discharge services: Less than 30 minutes - Quality: VTE Deep Vein Thrombosis/Pulmonary Embolism Present on Admission: No Exam Vital signs: Vital Signs 04/15/18 12:00 04/15/18 13:05 04/15/18 16:00 Temperature 98.3 F 98.5 F Pulse Rate 74 70 Respiratory Rate 20 18 Blood Pressure 163/90 H 142/84 H 165/90 H Pulse Oximetry 98 96 04/15/18 19:48 04/15/18 20:00 04/15/18 23:42 Temperature 98 F Pulse Rate 90 Respiratory Rate 6 L 20 20 Blood Pressure 168/93 H Pulse Oximetry 97 04/16/18 00:00 04/16/18 04:00 04/16/18 08:00 Temperature 97.9 F 98 F 97.7 F Pulse Rate 71 58 L 72 Respiratory Rate 20 20 16 Blood Pressure 153/60 H 142/64 H 160/90 H Pulse Oximetry 98 96 96 Intake & Output 04/15/18 04/16/18 04/16/18 18:59 06:59 18:59 Intake Total 440 / 440 680 / 680 Balance 440 / 440 680 / 680 Weight 81 kg Intake: IV 200 / 200 200 / 200 Unasyn Inj 1,500 MG In NS Inj 200 / 200 200 / 200 100 ML @ 200 mls/hr IV.SIG Q6H MIGUEL ANGEL Rx#:[id number] Oral 240 / 240 480 / 480 Other: # Voids 3 5 Date of Last Bowel Movement 04/15/18 # Bowel Movements 1 Results Procedures completed during hospitalization: Incision and drainage, debridement, application of VAC device right arm/elbow 03/31/2018, [place] Labs on day of discharge: Preliminary micro results at discharge 03/31/18 10:05 Fungal Culture - Preliminary Tissue - Arm No growth in 2 weeks 03/31/18 10:05 Mycobacterial Culture - Preliminary Tissue - Arm No growth in 2 weeks 03/31/18 10:05 Fungal Culture - Preliminary Wound - Arm No growth in 2 weeks 03/31/18 10:05 Mycobacterial Culture - Preliminary Wound - Arm No growth in 2 weeks 03/31/18 10:05 Fungal Culture - Preliminary Wound - Arm No growth in 2 weeks 03/31/18 10:05 Mycobacterial Culture - Preliminary Wound - Arm No growth in 2 weeks - Impressions ITS Impressions Elbow CT 03/30/18 15:12 There is diffuse subcutaneous edema identified, and overlying skin thickening characteristic of cellulitis. There is subcutaneous air and a few radiodense foreign bodies within the subcutaneous tissues posterior to the olecranon as noted on the plain radiographs. The subcutaneous air is contiguous with a rim- enhancing collection seen best on axial image 39 measuring approximately 3.9 cm in transverse dimension within the triceps musculature. There is subcutaneous fluid anteriorly as well as a moderate elbow joint effusion seen best on axial image 38 of series 6. There is overlying skin ulceration. The abscess and surrounding enhancement is best seen on sagittal image 24 measuring 7.8 cm in length. CONCLUSION: 1. Abscess and cellulitis noted above. 2. Overlying skin ulceration. Elbow X-Ray 03/30/18 15:12 CONCLUSION: Findings are concerning for infection with gas-forming organism until proven otherwise. Focal ulceration of the skin posterior to the elbow with subcutaneous air posterior to the elbow and distal humerus identified. Chest X-Ray 03/30/18 17:30 CONCLUSION: Negative examination. Discharge Plan - Discharge Disposition Patient Disposition: /Home Health Service - Discharge Condition Condition: Stable - Discharge Order Discharge Orders: Discharge Order (Routine); Ordered 04/16/18 Ordered By: Zain Ibarra - Discharge Details Anticipated Discharge Date: 04/16/18 - Physicians Team Primary Care Provider: Primary Care Physici,No Attending Provider: Zain Ibarra Other Providers: Travon Sanders MD ; Ole Langley MD
[2018-04-16 14:19] VITALS: BP 142/80; PULSE 81; RESP 18; TEMP 97.5; O2SAT 100
== END 2018-04-16 15:15 | disposition home health service (06) ==
LOC: NEPC 13:56 → NEDA 17:02 → N04 19:50
PROVIDERS: ADMIT Hospitalist; ATTEND Hospitalist

== ENCOUNTER 2018-04-27 15:30 | Inpatient (IN) ==
--- NOTE | 2018-04-27 19:29 | XR ---
EXAM DATE: 04/27/2018 7:06 PM EDT AGE/SEX: 53 years / Male INDICATIONS: Open wound and possible infection on posterior elbow status post I&D. CLINICAL DATA: This is the patient's initial encounter. Patient reports that signs and symptoms have been present for 2 weeks and indicates a pain score of 0/10. MEDICAL/SURGICAL HISTORY: None. . Right elbow I&D. COMPARISON: [facility], ELBOW LIMITED RIGHT 2V, 03/30/2018. . FINDINGS: There is soft tissue swelling and open wound over the extensor surface of the elbow. Calcifications i n the soft tissues. Probable superficial cortical erosions at the olecranon. Small joint effusion. CONCLUSION: Open wound over extensor surface of the elbow with some soft tissue calcifications. Cortical surface lucency may represent some osteomyelitis involving the olecranon. Electronically signed by: Shai Gregg MD 04/27/2018 7:28 PM EDT
[2018-04-27 19:43] LABS: Baso # (Auto) 0.1 th/mm3 (0.0-0.2); Baso % (Auto) 0.8 % (0.0-2.0); Eos # (Auto) 0.4 th/mm3 (0.0-0.4); Eos % (Auto) 4.1 % (0.0-4.0); Hematocrit 41.2 % (39.0-51.0); Hemoglobin 13.8 gm/dL (13.0-17.0); Lymph # (Auto) 2.5 th/mm3 (1.0-4.8); Lymph % (Auto) 26.3 % (9.0-44.0); Mean Corpuscular HGB Conc 33.6 % (32.0-36.0); Mean Corpuscular Volume 92.3 fL (80.0-100.0); Mean Platelet Volume 8.1 fL (7.0-11.0); Mono # (Auto) 0.6 th/mm3 (0.0-0.9); Mono % (Auto) 6.6 % (0.0-8.0); Neut % (Auto) 62.2 % (16.0-70.0); Platelet Count 294 th/mm3 (150-450); Red Blood Count 4.46 mil/mm3 (4.50-5.90); Red Cell Distribution Width 14.2 % (11.6-17.2); White Blood Count 9.6 th/mm3 (4.0-11.0)
--- NOTE | 2018-04-27 19:55 | ED ---
HPI General Chief complaint: Skin/Abscess/Foreign Body Stated complaint: skin/elbow Time Seen by Provider: 04/27/18 18:44 Source: patient Mode of arrival: ambulatory Limitations: no limitations History of Present Illness HPI narrative: Patient is a 53-year-old male that presents for the evaluation of a possible infection of a wound on the right elbow. The patient states that he received surgery on the elbow around 3 weeks ago for a severe infection and cellulitis. The patient states that he was in the hospital for about a week where he believes he received IV antibiotics. The patient states that he was sent home with wound dressing and has performed a dressing change on the wound once before. The patient states that today he was changing the wound dressing and noticed some new discharge from the wound and he became concerned and decided to come to the ER for evaluation. The patient states that his current pain level is a 6/10 on a pain scale. The patient states that this level of pain is normal. Upon review of symptoms he denies fever, chills, chest pain, shortness of breath, nausea, or vomiting. Related Data Previous Rx's Medication Instructions Recorded hydrocodone-acetaminophen 1 tab PO Q4H PRN #20 tab 04/16/18 Allergies Allergy/AdvReac Type Severity Reaction Status Date / Time shellfish derived AdvReac Intermediate Nausea/Vomi Verified 04/27/18 18:21 ting Review of Systems ROS: all other systems reviewed are negative [facility] Medical History Medical History No pertinent past medical history (Acute) Surgical History Surgical History No pertinent past surgical history (Acute) Family History Family History Other Family disruption Social History Social History Substance History: No History of Abuse Second Hand Smoke Exposure: No Smoking Status: Current every day smoker Tobacco Type: Cigarettes How Often Do You Have a Drink Containing Alcohol: 4 or more times a week Recent Travel in [facility] within the Last 8 Weeks: No Recent Out of Country Travel within the Last 8 Weeks: No Immunization History Tetanus Immunization: <5 Years Hx Influenza Vaccine This Season: Yes Exam Narrative Exam Narrative: GENERAL: Well appearing. SKIN: Focused skin assessment warm/dry. HEAD: Atraumatic. Normocephalic. EYES: Pupils equal and round. No scleral icterus. No injection or drainage. ENT: No nasal bleeding or discharge. Mucous membranes pink and moist. Tongue midline. No uvula deviation. NECK: Trachea midline. No JVD. CARDIOVASCULAR: Regular rate and rhythm. No murmur appreciated. RESPIRATORY: No accessory muscle use. Clear to auscultation. Breath sounds equal bilaterally. GASTROINTESTINAL: Abdomen soft, non-tender, nondistended. Hepatic and splenic margins not palpable. MUSCULOSKELETAL: No obvious deformities. No clubbing. No cyanosis. No edema. Patient has full range of motion of the upper and lower extremities. Patient does have what appears to be an opening where patient had an infection in his olecranon area of his right elbow. There is some purulent discharge from it most of it appears to be possibly normal healing. He is elbow itself is definitely warm compared to the left. A little bit more swollen. There is another opening which is about 1 cm just above the main opening which is about 5 cm in length. Some erythema noted around the borders. NEUROLOGICAL: Awake and alert. No obvious cranial nerve deficits. Motor grossly within normal limits. Normal speech. PSYCHIATRIC: Appropriate mood and affect; insight and judgment normal. Course Initial Documented Vital Signs Temperature 98.3 F 04/27/18 15:34 Pulse Rate 96 H 04/27/18 15:34 Respiratory Rate 18 04/27/18 15:34 Blood Pressure 173/101 H 04/27/18 15:34 Pulse Oximetry 96 04/27/18 15:34 Last Documented Vital Signs Temperature 98.3 F 04/27/18 15:34 Pulse Rate 74 04/27/18 18:28 Respiratory Rate 22 04/27/18 18:28 Blood Pressure 146/104 H 04/27/18 18:28 Pulse Oximetry 99 04/27/18 18:28 Medical Decision Making [facility] Narrative Medical decision making narrative: 53-year-old male the presents to the ED for evaluation of possible infection to his wound. Patient was properly examined and was found to have signs and symptoms concerning for infection. Labs and imaging were ordered. Labs and imaging were essentially unremarkable other than what appears to be possible Osteomyelitis and elevated ESR. CRP appears to be normal. Because of the finding concerning for possible osteo-we recommend admission with IV antibiotics. My attending Dr. Gaviria was made aware of findings and agrees with plan. Case discussed with Dr. Marcelino agrees to admission. Patient himself agrees with admission plan. Patient was started on vancomycin and Zosyn. Medical Screen Exam Complete: Yes Emergency Medical Condition: Yes Differential Diagnosis Differential Diagnosis: Osteomyelitis versus abscess versus cellulitis Medical Records Medical records reviewed: Yes I reviewed the patient's medical records. Lab Data Lab results reviewed: Yes I reviewed the patient's lab results. Lab results narrative: ESR elevated, CRP within normal limits Result diagrams: 04/27/18 19:00 04/27/18 19:00 Lab Results 04/27/18 04/27/18 04/27/18 Range/Units 19:00 19:00 21:40 WBC 9.6 (4.0-11.0) th/mm3 RBC 4.46 L (4.50-5.90) mil/mm3 Hgb 13.8 (13.0-17.0) gm/dL Hct 41.2 (39.0-51.0) % MCV 92.3 (80.0-100.0) fL MCH 31.0 (27.0-34.0) pg MCHC 33.6 (32.0-36.0) % RDW 14.2 (11.6-17.2) % Plt Count 294 D (150-450) th/mm3 MPV 8.1 (7.0-11.0) fL Neut % (Auto) 62.2 (16.0-70.0) % Lymph % (Auto) 26.3 (9.0-44.0) % [place] % (Auto) 6.6 (0.0-8.0) % Eos % (Auto) 4.1 H (0.0-4.0) % Baso % (Auto) 0.8 (0.0-2.0) % Neut # (Auto) 6.0 (1.8-7.7) th/mm3 Lymph # (Auto) 2.5 (1.0-4.8) th/mm3 [place] # (Auto) 0.6 (0.0-0.9) th/mm3 Eos # (Auto) 0.4 (0.0-0.4) th/mm3 Baso # (Auto) 0.1 (0.0-0.2) th/mm3 WBC Differential . Differential Comment Auto diff final ESR (0-20) mm/hr Sodium 139 (136-145) meq/L Potassium 4.4 (3.5-5.1) meq/L Chloride 105 (98-107) meq/L Carbon Dioxide 25.1 (21.0-32.0) meq/L Anion Gap 9 (5-15) meq/L BUN 11 (7-18) mg/dL Creatinine 0.83 (0.60-1.30) mg/dL Estimated GFR Greater than 89 (>89) mL/min Random Glucose 90 (74-106) mg/dL Calcium 8.6 (8.5-10.1) mg/dL C-Reactive Protein Less than 0.29 (0.00-0.30) mg/dL 04/27/18 Range/Units 21:40 WBC (4.0-11.0) th/mm3 RBC (4.50-5.90) mil/mm3 Hgb (13.0-17.0) gm/dL Hct (39.0-51.0) % MCV (80.0-100.0) fL MCH (27.0-34.0) pg MCHC (32.0-36.0) % RDW (11.6-17.2) % Plt Count (150-450) th/mm3 MPV (7.0-11.0) fL Neut % (Auto) (16.0-70.0) % Lymph % (Auto) (9.0-44.0) % [place] % (Auto) (0.0-8.0) % Eos % (Auto) (0.0-4.0) % Baso % (Auto) (0.0-2.0) % Neut # (Auto) (1.8-7.7) th/mm3 Lymph # (Auto) (1.0-4.8) th/mm3 [place] # (Auto) (0.0-0.9) th/mm3 Eos # (Auto) (0.0-0.4) th/mm3 Baso # (Auto) (0.0-0.2) th/mm3 WBC Differential Differential Comment ESR 55 H (0-20) mm/hr Sodium (136-145) meq/L Potassium (3.5-5.1) meq/L Chloride (98-107) meq/L Carbon Dioxide (21.0-32.0) meq/L Anion Gap (5-15) meq/L BUN (7-18) mg/dL Creatinine (0.60-1.30) mg/dL Estimated GFR (>89) mL/min Random Glucose (74-106) mg/dL Calcium (8.5-10.1) mg/dL C-Reactive Protein (0.00-0.30) mg/dL Imaging Data Attestation: I personally reviewed and interpreted this imaging study as follows : Radiologist's impression: Elbow X-Ray 04/27/18 19:06 CONCLUSION: Open wound over extensor surface of the elbow with some soft tissue calcifications. Cortical surface lucency may represent some osteomyelitis involving the olecranon. Discharge Plan Discharge Disposition Patient Disposition: 30 Still Patient Discharge Details Diagnosis: Osteomyelitis Physicians Team ED Provider: Silverio Gaviria ED Midlevel Provider: Emiliano Olivera Primary Care Provider: Primary Care Mara Goins Attending Provider: Antonino Marcelino Discharge Interventions Interventions: Vital Signs Last Done: 04/27/18 18:28 Status ED Status: Admitted Patient
[2018-04-27 20:01] LABS: Anion Gap 9 meq/L (5-15); Blood Urea Nitrogen 11 mg/dL (7-18); Calcium 8.6 mg/dL (8.5-10.1); Carbon Dioxide 25.1 meq/L (21.0-32.0); Chloride 105 meq/L (98-107); Glomerular Filtration Rate Greater Than 89 mL/min (>89); Glucose,Random 90 mg/dL (74-106); Potassium 4.4 meq/L (3.5-5.1); Sodium 139 meq/L (136-145)
[2018-04-27] MEDS ORDERED: Piperacil/Tazo 3.375 GM Premix 50 ML IV.SIG ONE (21:51)
[2018-04-27] MEDS ORDERED: Vancomycin Inj 1 GM/200 ML PIGGYBACK IV.SIG SCH ×2 (22:00)
[2018-04-27] MEDS ORDERED: Sod Chloride 0.9% Inj 1,000 ML IV.SIG SCH (22:00)
[2018-04-27] MEDS ORDERED: Vancomycin Consult Pharmacy OTHER PRN (22:21)
[2018-04-27] MEDS ORDERED: Bisacodyl 10 MG Supp RECTAL PRN (22:25)
[2018-04-27] MEDS: Sod Chloride 0.9% Inj 1,000 ML IV.CONT SCH (22:35)
[2018-04-27] MEDS ORDERED: Naloxone Inj 0.4 MG/ML Vial IV.PUSH PRN (23:14)
--- NOTE | 2018-04-27 23:18 | P.HPIM ---
History of Present Illness Primary Care Physician: No Primary Care Physician History of Present Illness: 53-year-old male with a history of smoking, recent admission for right elbow olecranon bursitis status post debridement and IV antibiotics, with cultures growing Eikenella, followed by infectious disease. He was discharged 04/16, with wound care having completed antibiotics. He presents with a 3-day history of worsening constant sharp, nonradiating pain in the right olecranon, with new purulence. Denies any fevers, chest pain, shortness breath, nausea, vomiting Inpatient Certification: I certify that the inpatient services were ordered in accordance with Medicare regulations governing the order. This includes certification that hospital inpatient services are reasonable and necessary and in the case of services not specified as inpatient-only under 42 CFR 419.22(n), that they are appropriately provided as inpatient services in accordance to with the 2-midnight benchmark under 43 CFR 412.3(e) Estimated Total Length of Stay (Days): 2 Plans for Post Hospital Care: Home Review of Systems All other systems reviewed negative except as stated [facility] - History History Provided By: Patient - Medical History Medical History: Medical History (Last Reviewed 04/27/18 @ 19:54 by PRISCILLA Newell) No pertinent past medical history - Surgical History Surgical History: Surgical History (Last Reviewed 04/27/18 @ 19:54 by PRISCILLA Newell) No pertinent past surgical history - Family History Family History: Family History (Last Updated 04/27/18 @ 23:09 by Antonino Marcelino MD) Mother Heart problem Other Family disruption - Tobacco History Second Hand Smoke Exposure: No Tobacco Use In Past 30 Days: Yes Smoking Status: Current every day smoker Tobacco Type: Cigarettes - Alcohol History How Often Do You Have a Drink Containing Alcohol: 4 or more times a week - Substance Use History Substance History: No History of Abuse - Travel History Recent Travel in the [place] Within the Last 8 Weeks: No Recent Travel Out of the Country Within the Last 8 Weeks: No - Immunization History Tetanus Immunization: <5 Years Hx Influenza Vaccine This Season: Yes Medications and Allergies Active Medications: Active Medications Al Hydroxide/Mg Hydroxide (Milk Of Lotus Liq) 30 ml PO Q12H PRN PRN Reason: Mild Constipation Bisacodyl (Dulcolax Supp) 10 mg RECTAL DAILY PRN PRN Reason: SEVERE CONSITIPATION Sodium Chloride (Ns Inj) 1,000 mls @ 0 mls/hr IV.SIG BOLUS MIGUEL ANGEL Piperacillin/Tazobactam/Dextrose (Zosyn 4.5 Gm Premix) 4.5 gm in 100 mls @ 200 mls/hr IV.SIG Q6H MIGUEL ANGEL Sodium Chloride (Ns Inj) 1,000 mls @ 100 mls/hr IV.CONT .Q10H MIGUEL ANGEL Vancomycin HCl 1,750 mg/ (Sodium Chloride) 517.5 mls @ 258.75 mls/hr IV.SIG ONCE ONE Stop: 04/28/18 02:59 Lactulose (Lactulose Liq) 30 ml PO DAILY PRN PRN Reason: SEVERE CONSITIPATION Pharmacy Profile Note (Vancomycin Consult Pharmacy) 1 each OTHER UNSCH PRN PRN Reason: Pharmacy to dose Sennosides (Senokot) 17.2 mg PO Q12H PRN PRN Reason: Moderate Constipation Allergies Allergy/AdvReac Type Severity Reaction Status Date / Time shellfish derived AdvReac Intermediate Nausea/Vomi Verified 04/27/18 18:21 ting Exam Vital signs: Vital Signs 04/27/18 15:34 04/27/18 18:28 04/27/18 21:30 Temperature 98.3 F Pulse Rate 96 H 74 100 H Respiratory Rate 18 22 20 Blood Pressure 173/101 H 146/104 H 152/77 H Pulse Oximetry 96 99 98 Intake & Output 04/27/18 04/27/18 04/28/18 06:59 18:59 06:59 Weight 77.111 kg Narrative: GENERAL: Patient sitting up in bed. Appears comfortable. Alert and oriented x3. SKIN: Warm and dry. HEAD: Atraumatic. Normocephalic. EYES: Pupils equal and round. No scleral icterus. No injection or drainage. ENT: No nasal bleeding or discharge. Mucous membranes pink and moist. NECK: Trachea midline. No JVD. CARDIOVASCULAR: Regular rate and rhythm. RESPIRATORY: No accessory muscle use. Clear to auscultation. Breath sounds equal bilaterally. GASTROINTESTINAL: Abdomen soft, non-tender, nondistended. Hepatic and splenic margins not palpable. MUSCULOSKELETAL: Extremities without clubbing, cyanosis, or edema. Right elbow with incision draining chi pus, minimal surrounding erythema. NEUROLOGICAL: Awake and alert. No obvious cranial nerve deficits. Motor grossly within normal limits. Five out of 5 muscle strength in the arms and legs. Normal speech. PSYCHIATRIC: Appropriate mood and affect; insight and judgment normal. Results - Labs CBC & Chem 7: 04/27/18 19:00 04/27/18 19:00 Labs: Short CBC 04/27/18 Range/Units 19:00 WBC 9.6 (4.0-11.0) th/mm3 Hgb 13.8 (13.0-17.0) gm/dL Hct 41.2 (39.0-51.0) % Plt Count 294 D (150-450) th/mm3 BMP 04/27/18 19:00 Sodium 139 Potassium 4.4 Chloride 105 Carbon Dioxide 25.1 BUN 11 Creatinine 0.83 Calcium 8.6 - Imaging Impressions Elbow X-Ray 04/27/18 19:06 CONCLUSION: Open wound over extensor surface of the elbow with some soft tissue calcifications. Cortical surface lucency may represent some osteomyelitis involving the olecranon. Caprini VTE Risk Assessment Caprini VTE Risk Assessment: No/Low Risk (score <= 1) Caprini Risk Assessment Model: Point Value = 1 Point Value = 2 Point Value = 3 Point Value = 5 Age 41-60 Minor surgery BMI > 25 kg/m2 Swollen legs Varicose veins or History of unexplained or recurrent spontaneous Oral contraceptives or hormone replacement Sepsis (< 1 month) Serious lung disease, including pneumonia (< 1 month) Abnormal pulmonary function Acute myocardial infarction Congestive heart failure (< 1 month) History of inflammatory bowel disease Medical patient at bed rest Age 61-74 Arthroscopic surgery Major open surgery (> 45 min) Laparoscopic surgery (> 45 min) Malignancy Confined to bed (> 72 hours) Immobilizing plaster cast Central venous access Age >= 75 History of VTE Family history of VTE Factor V Leiden Prothrombin [id number] Lupus anticoagulant Anticardiolipin antibodies Elevated serum homocysteine Heparin-induced thrombocytopenia Other congenital or acquired thrombophilia Stroke (< 1 month) Elective arthroplasty Hip, pelvis, or leg fracture Acute spinal cord injury (< 1 month) Prophylaxis Regimen: Total Risk Factor Score Risk Level Prophylaxis Regimen 0-1 Low Early ambulation 2 Moderate Order ONE of the following: *Sequential Compression Device (SCD) *Heparin 5000 units SQ BID 3-4 Higher Order ONE of the following medications: *Heparin 5000 units SQ TID *Enoxaparin/Lovenox 40 mg SQ daily (WT < 150 kg, CrCl > 30 mL/min) *Enoxaparin/Lovenox 30 mg SQ daily (WT < 150 kg, CrCl > 10-29 mL/min) *Enoxaparin/Lovenox 30 mg SQ BID (WT < 150 kg, CrCl > 30 mL/min) AND/OR *Sequential Compression Device (SCD) 5 or more Highest Order ONE of the following medications: *Heparin 5000 units SQ TID (Preferred with Epidurals) *Enoxaparin/Lovenox 40 mg SQ daily (WT < 150 kg, CrCl > 30 mL/min) *Enoxaparin/Lovenox 30 mg SQ daily (WT < 150 kg, CrCl > 10-29 mL/min) *Enoxaparin/Lovenox 30 mg SQ BID (WT < 150 kg, CrCl > 30 mL/min) AND *Sequential Compression Device (SCD) Assessment and Plan - Plan //Osteomyelitis right olecranon -X-ray right elbow shows osteomyelitis of the olecranon. ESR elevated in the 50s We will start on broad-spectrum antibiotics. Blood cultures, wound culture pending. -Consult infectious disease, orthopedics. Patient is n.p.o. for possible debridement tomorrow. //Chronic smoking history with active tobacco abuse. Discussed with patient's the reasons he should quit, most pertinent being poor wound healing secondary to nicotine-induced vasoconstriction. //elevated blood pressures. As needed Discussed Condition With: Patient, nurse, ED physician.
[2018-04-27] MEDS: oxyCODONE/Acetaminophen 10/325 Tablet PO PRN (23:49)
[2018-04-28] MEDS ORDERED: Vancomycin Inj 1,750 MG in Sodium Chlor 0.9% Inj 500 ML IV.SIG ONE (01:00)
[2018-04-28] MEDS: Piperacil/Tazo 4.5 GM Premix 4.5 GM/100 ML BAG IV.SIG SCH ×4 (01:46→20:34)
[2018-04-28] MEDS: oxyCODONE/Acetaminophen 10/325 Tablet PO PRN ×2 (05:52→11:23)
[2018-04-28 06:20] LABS: INR 1.1 Ratio; Prothrombin Time 10.9 sec (9.8-11.6)
--- NOTE | 2018-04-28 07:42 | P.PNOP ---
Subjective Interval history: History of right elbow abscess. Has had previous irrigation and debridement by Dr. Langley. States that the wound is gotten worse and is continuing to be infected. Physical Exam Vital signs: Vital Signs 04/27/18 15:34 04/27/18 18:28 04/27/18 21:30 Temperature 98.3 F Pulse Rate 96 H 74 100 H Respiratory Rate 18 22 20 Blood Pressure 173/101 H 146/104 H 152/77 H Pulse Oximetry 96 99 98 04/28/18 00:00 04/28/18 04:00 Temperature 98.5 F 97.3 F L Pulse Rate 89 62 Respiratory Rate 17 17 Blood Pressure 165/88 H 163/85 H Pulse Oximetry 98 97 Intake & Output 04/27/18 04/28/18 04/28/18 18:59 06:59 18:59 Intake Total 1467.5 / 1467.5 Balance 1467.5 / 1467.5 Weight 77.111 kg 77.1 kg Intake: IV 667.5 / 667.5 Zosyn 3.375 GM Premix 50 ML @ 50 / 50 100 mls/hr IV.SIG ONCE ONE Rx#: [id number] Zosyn 4.5 GM Premix 4.5 gm In 100 / 100 100 ml @ 200 mls/hr IV.SIG Q6H [facility] Rx#:[id number] Vancomycin Inj 1,750 MG In NS 517.5 / 517.5 Inj 500 ML @ 258.75 mls/hr IV. SIG ONCE ONE Rx#:[id number] Oral 800 / 800 Other: # Voids 2 Narrative: RUE: Wound proximally 3 x 3 cm over the olecranon. There is purulent discharge present. There is erythema surrounding it. The skin is indurated. Results - Labs CBC & Chem 7: 04/27/18 19:00 04/27/18 19:00 Laboratory Results - last 24 hr 04/27/18 04/27/18 04/27/18 19:00 19:00 21:40 WBC 9.6 RBC 4.46 L Hgb 13.8 Hct 41.2 MCV 92.3 MCH 31.0 MCHC 33.6 RDW 14.2 Plt Count 294 D MPV 8.1 Neut % (Auto) 62.2 Lymph % (Auto) 26.3 [place] % (Auto) 6.6 Eos % (Auto) 4.1 H Baso % (Auto) 0.8 Neut # (Auto) 6.0 Lymph # (Auto) 2.5 [place] # (Auto) 0.6 Eos # (Auto) 0.4 Baso # (Auto) 0.1 WBC Differential . Differential Comment Auto diff final ESR PT INR Sodium 139 Potassium 4.4 Chloride 105 Carbon Dioxide 25.1 Anion Gap 9 BUN 11 Creatinine 0.83 Estimated GFR Greater than 89 Random Glucose 90 Calcium 8.6 C-Reactive Protein Less than 0.29 04/27/18 04/28/18 21:40 05:28 WBC RBC Hgb Hct MCV MCH MCHC RDW Plt Count MPV Neut % (Auto) Lymph % (Auto) [place] % (Auto) Eos % (Auto) Baso % (Auto) Neut # (Auto) Lymph # (Auto) [place] # (Auto) Eos # (Auto) Baso # (Auto) WBC Differential Differential Comment ESR 55 H PT 10.9 INR 1.1 Sodium Potassium Chloride Carbon Dioxide Anion Gap BUN Creatinine Estimated GFR Random Glucose Calcium C-Reactive Protein - Imaging Impressions Elbow X-Ray 04/27/18 19:06 CONCLUSION: Open wound over extensor surface of the elbow with some soft tissue calcifications. Cortical surface lucency may represent some osteomyelitis involving the olecranon. Assessment and Plan - Assessment and Plan 1) right olecranon skin wound with possible osteomyelitis -Resume diet -npo after mn -will plan for surgery tomorrow for irrigation and debridement with Lucio -dressings with xeroform/4x4/pari
[2018-04-28] MEDS: Sod Chloride 0.9% Inj 1,000 ML IV.CONT SCH ×2 (12:58→19:09)
--- NOTE | 2018-04-28 13:21 | P.CONOP ---
[facility] Orthopedics Consult Note - [facility] Consult date: 04/28/18 Chief complaint: acute Right elbow osteomyelitis Narrative: Karri is a 53-year-old male. He previously developed cellulitis and infection of his right elbow. He underwent surgery on 03/31/[address] Langley for irrigation and debridement of right elbow abscess. He states that he has been having wound care. The only change in the dressing every 5 days. He is completed his antibiotics. His only complaint is his right elbow wound. He had a recent admission for right elbow olecranon bursitis status post debridement and IV antibiotics, with cultures growing Eikenella, followed by infectious disease. He was discharged 04/16, with wound care having completed antibiotics. He presents with a 3-day history of worsening constant sharp, nonradiating pain in the right olecranon, with new purulence. He denies any fevers, chest pain, shortness breath, nausea, vomiting Review of Systems Patient denies weight loss, headache, visual changes, hearing loss, chest pain, palpitations, shortness of breath, nausea, vomiting, no urinary changes, diarrhea, bowel changes, neck pain, back pain, skin rashes, weakness of extremities, easy bleeding, enlarged lymph nodes, numbness of extremities, anxiety, or depression. He complains of right elbow pain and drainage. He also complains of low-grade fevers. Patient's social history, past medical history, and family history were reviewed on chart and with patient. [facility] - History History Provided By: Patient - Medical History Medical History: Medical History (Last Reviewed 04/28/18 @ 13:18 by Armando Bell MD) No pertinent past medical history - Surgical History Surgical History: Surgical History (Last Reviewed 04/27/18 @ 19:54 by PRISCILLA Newell) No pertinent past surgical history - Family History Family History: Family History (Last Reviewed 04/28/18 @ 13:18 by Armando Bell MD) Mother Heart problem Other Family disruption - Social History I have reviewed the patient's Social History: Yes - Tobacco History Second Hand Smoke Exposure: Yes Tobacco Use In Past 30 Days: Yes Smoking Status: Current every day smoker Tobacco Type: Cigarettes - Alcohol History How Often Do You Have a Drink Containing Alcohol: 4 or more times a week - Substance Use History Substance History: No History of Abuse - Travel History Recent Travel in the [place] Within the Last 8 Weeks: No Recent Travel Out of the Country Within the Last 8 Weeks: No - Immunization History Tetanus Immunization: <5 Years Hx Influenza Vaccine This Season: Yes Medications and Allergies Active Medications: Active Medications Al Hydroxide/Mg Hydroxide (Milk Of Magnesia Liq) 30 ml PO Q12H PRN PRN Reason: Mild Constipation Bisacodyl (Dulcolax Supp) 10 mg RECTAL DAILY PRN PRN Reason: SEVERE CONSITIPATION Enalaprilat (Vasotec Inj) 1.25 mg IV.PUSH Q6H PRN PRN Reason: SBP>160, DBP>90 Last Admin: 04/28/18 05:53 Dose: 1.25 mg Sodium Chloride (Ns Inj) 1,000 mls @ 0 mls/hr IV.SIG BOLUS [facility] Piperacillin/Tazobactam/Dextrose (Zosyn 4.5 Gm Premix) 4.5 gm in 100 mls @ 200 mls/hr IV.SIG Q6H [facility] Last Admin: 04/28/18 13:02 Dose: 200 mls/hr Sodium Chloride (Ns Inj) 1,000 mls @ 100 mls/hr IV.CONT .Q10H [facility] Last Admin: 04/28/18 12:58 Dose: 100 mls/hr Vancomycin HCl 1,750 mg/ (Sodium Chloride) 517.5 mls @ 250 mls/hr IV.SIG Q12H [facility] Lactulose (Lactulose Liq) 30 ml PO DAILY PRN PRN Reason: SEVERE CONSITIPATION Miscellaneous Information ([facility] Ordered Lab Info) 0 each OTHER ONCE ONE Stop: 04/30/18 02:46 Naloxone HCl (Narcan Inj) 0.4 mg IV.PUSH UNSCH PRN PRN Reason: SEE LABEL COMMENTS Oxycodone/Acetaminophen (Percocet 5/325 Mg) 1 tab PO Q6H PRN PRN Reason: PAIN SCALE 3 TO 5 Oxycodone/Acetaminophen (Percocet 10/325 Mg) 1 tab PO Q6H PRN PRN Reason: PAIN SCALE 6 TO 10 Last Admin: 04/28/18 11:23 Dose: 1 tab Pharmacy Profile Note (Vancomycin Consult Pharmacy) 1 each OTHER UNSCH PRN PRN Reason: Pharmacy to dose Sennosides (Senokot) 17.2 mg PO Q12H PRN PRN Reason: Moderate Constipation Allergies Allergy/AdvReac Type Severity Reaction Status Date / Time shellfish derived AdvReac Intermediate Nausea/Vomi Verified 04/27/18 18:21 ting Exam Vital signs: Vital Signs 04/27/18 15:34 04/27/18 18:28 04/27/18 21:30 Temperature 98.3 F Pulse Rate 96 H 74 100 H Respiratory Rate 18 22 20 Blood Pressure 173/101 H 146/104 H 152/77 H Pulse Oximetry 96 99 98 04/28/18 00:00 04/28/18 04:00 04/28/18 08:00 Temperature 98.5 F 97.3 F L 97.1 F L Pulse Rate 89 62 74 Respiratory Rate 17 17 18 Blood Pressure 165/88 H 163/85 H 130/70 Pulse Oximetry 98 97 96 04/28/18 11:53 04/28/18 12:00 Temperature 97.3 F L Pulse Rate 54 L Respiratory Rate 18 19 Blood Pressure 110/65 Pulse Oximetry 97 Intake & Output 04/27/18 04/28/18 04/28/18 18:59 06:59 18:59 Intake Total 1467.5 / 1467.5 1100 / 1100 Balance 1467.5 / 1467.5 1100 / 1100 Weight 77.111 kg 77.1 kg Intake: IV 667.5 / 667.5 1100 / 1100 NS Inj 1,000 ML @ 100 mls/hr IV 1000 / 1000 .CONT .Q10H [facility] Rx#:[id number] Zosyn 3.375 GM Premix 50 ML @ 50 / 50 100 mls/hr IV.SIG ONCE ONE Rx#: [id number] Zosyn 4.5 GM Premix 4.5 gm In 100 / 100 100 / 100 100 ml @ 200 mls/hr IV.SIG Q6H [facility] Rx#:[id number] Vancomycin Inj 1,750 MG In NS 517.5 / 517.5 Inj 500 ML @ 258.75 mls/hr IV. SIG ONCE ONE Rx#:[id number] Oral 800 / 800 Other: # Voids 2 Date of Last Bowel Movement 04/28/18 Narrative: Karri is a 53-year-old male. He appears his stated age. General: Awake and alert. No acute distress. Appears well-developed well- nourished Head: Normocephalic, atraumatic pupils are equal Neck: Soft, nontender, trachea midline Abdomen: Soft, nondistended Examination of right arm reveals no pain or deformity with shoulder or wrist motion. Examination of his elbow reveals a 3 cm x 2 cm open wound. There appears to be purulence and some necrotic tissue present. Otherwise skin is intact. He has minimal pain with gentle elbow motion. Radial pulse is palpable. Normal capillary refill in fingers. Sensation is intact in radial, ulnar, and median nerve distributions. Farm Crew Member strength is +5. No lymphadenopathy noted. Examination of left arm reveals no pain or deformity with shoulder, elbow, or wrist motion. Skin is intact. Radial pulse is palpable. Normal capillary refill in fingers. Sensation is intact in radial, ulnar, and median nerve distributions. Farm Crew Member strength is +5. No lymphadenopathy noted. Examination of left lower extremity reveals no pain or deformity with hip, knee , or ankle motion. Skin is intact. Sensation is intact in left foot. Dorsalis pedis pulse is palpable. Normal capillary refill and feet. Thigh and calf compartments are soft. No lymphadenopathy noted. +5 strength of ankle dorsiflexion and plantarflexion. Examination of right lower extremity reveals no pain or deformity with hip, knee , or ankle motion. Skin is intact. Sensation is intact in right foot. Dorsalis pedis pulse is palpable. Normal capillary refill and feet. Thigh and calf compartments are soft. No lymphadenopathy noted. +5 strength of ankle dorsiflexion and plantarflexion. Results - Labs Result Diagrams: 04/27/18 19:00 04/27/18 19:00 Labs: Laboratory Results - last 24 hr 04/27/18 04/27/18 04/27/18 19:00 19:00 21:40 WBC 9.6 RBC 4.46 L Hgb 13.8 Hct 41.2 MCV 92.3 MCH 31.0 MCHC 33.6 RDW 14.2 Plt Count 294 D MPV 8.1 Neut % (Auto) 62.2 Lymph % (Auto) 26.3 [place] % (Auto) 6.6 Eos % (Auto) 4.1 H Baso % (Auto) 0.8 Neut # (Auto) 6.0 Lymph # (Auto) 2.5 [place] # (Auto) 0.6 Eos # (Auto) 0.4 Baso # (Auto) 0.1 WBC Differential . Differential Comment Auto diff final ESR PT INR Sodium 139 Potassium 4.4 Chloride 105 Carbon Dioxide 25.1 Anion Gap 9 BUN 11 Creatinine 0.83 Estimated GFR Greater than 89 Random Glucose 90 Calcium 8.6 C-Reactive Protein Less than 0.29 04/27/18 04/28/18 21:40 05:28 WBC RBC Hgb Hct MCV MCH MCHC RDW Plt Count MPV Neut % (Auto) Lymph % (Auto) [place] % (Auto) Eos % (Auto) Baso % (Auto) Neut # (Auto) Lymph # (Auto) [place] # (Auto) Eos # (Auto) Baso # (Auto) WBC Differential Differential Comment ESR 55 H PT 10.9 INR 1.1 Sodium Potassium Chloride Carbon Dioxide Anion Gap BUN Creatinine Estimated GFR Random Glucose Calcium C-Reactive Protein - Diagnostic results Imaging: Impressions Elbow X-Ray 04/27/18 19:06 CONCLUSION: Open wound over extensor surface of the elbow with some soft tissue calcifications. Cortical surface lucency may represent some osteomyelitis involving the olecranon. Elbow x-ray: report reviewed, image reviewed Assessment and Plan - Assessment and Plan Karri appears to have continued wound infection of his right elbow. There is a significant open wound present. There is purulent drainage present. At this point I would recommend surgical intervention for irrigation and debridement of the right elbow and olecranon. The risk and benefits of surgery were discussed with the patient. All questions were answered. I will plan on surgery tomorrow morning. --right olecranon skin wound with possible osteomyelitis -Resume diet today -npo after mn -will plan for surgery tomorrow for irrigation and debridement with Blel -dressings with xeroform/4x4/pari A mid-level provider in my office (nurse practitioner or physician tax accounting assistant) may see this patient on follow-up visits and continue to implement the objectives of this plan including: Starting or adjusting medications, injections , cast application, orthotics, brace application, physical therapy, radiological studies (including x-ray, MRI, CT, ultrasound, bone scan), vascular studies, neurologic studies, specialist consultation, and proceeding with surgical management, as appropriate.
[2018-04-28] MEDS: Vancomycin Inj 1,750 MG in Sodium Chlor 0.9% Inj 500 ML IV.SIG SCH (14:28)
--- NOTE | 2018-04-28 15:59 | MB ---
cc: Travon Sanders MD DATE: 04/28/2018 REQUESTING PHYSICIAN: Dr. Marcelino. REASON: Olecranon osteomyelitis. HISTORY OF PRESENT ILLNESS: This is a 53-year-old white male who was recently in the hospital for bursitis of the right elbow. The patient received IV antibiotic treatment. He had culture that grew Eikenella and he received IV antibiotics in the hospital. At one point, there was a wound VAC applied to the wound and the patient was noncompliant and the wound VAC was removed and he was discharged home to have wound dressing changes at home. He was to do the wound dressing changes approximately every 5 days. He did it twice. The second time, his mom looked at the wound and it did not look like it was healing well and there was erythema at the wound site. The patient presented to the emergency department yesterday. The patient also notes that he was not taking pain medicines at home because he had little pain. However, he developed pain prior to coming to the emergency department. He also was noted to have discharge coming from the wound. Wound culture was taken and the wound culture has no growth at 24 hours. Blood culture has no growth for 24 hours. White blood cell count is normal. The patient has no fever. He had received IV antibiotics while in the hospital for 2 weeks after the wound culture positive for Eikenella. The patient says he has no other symptoms like pain in the right elbow. PAST MEDICAL HISTORY: Unremarkable. ALLERGIES: NO KNOWN DRUG ALLERGIES. MEDICATIONS: 1. Vancomycin. 2. Piperacillin/tazobactam. 3. Docusate p.r.n. SOCIAL HISTORY: Positive tobacco. Positive alcohol. No illicit drugs. FAMILY HISTORY: Noncontributory. REVIEW OF SYSTEMS: Negative 10-point review except for pain in the right elbow. FAMILY HISTORY: Noncontributory. PHYSICAL EXAMINATION: GENERAL: This is a well-developed male who is in no acute distress. He is awake and alert and oriented. VITAL SIGNS: Temperature 97.3, BP 110/65, respirations 19, heart rate 54. HEENT: Head is atraumatic. Extraocular muscles intact. Pupils reactive to light. No icterus. Oropharynx moist mucosa without lesions. NECK: Supple without adenopathy or swelling. LUNGS: Clear to auscultation. HEART: Regular S1 and S2, without murmurs. ABDOMEN: Bowel sounds present. Soft, nontender. RECTAL: Not performed. EXTREMITIES: The right elbow has erythema and increased warmth and there is an area at the upper aspect of the olecranon with white tissue visible. The lower aspect also has an open wound with visible tendon at the olecranon. There is serous drainage on the dressing. SKIN: No diffuse rash. NEUROLOGIC: No gross focal finding. PSYCHIATRIC: Calm and cooperative. LABORATORY DATA: WBC 9.6, platelets 294, hemoglobin 13.8. Creatinine 0.83, BUN 11, sodium 139 stable. Elbow x-ray shows open wound over the extensor surface with some soft tissue calcification and cortical surface lucency that may represent osteomyelitis. IMPRESSION: 1. Open wound over the right olecranon. 2. Osteomyelitis involving the right olecranon with what appears to be exposed bone. The patient recently treated for infection of the right elbow. 3. Cellulitis involving the left elbow. RECOMMENDATIONS: 1. Continue vancomycin. 2. Continue piperacillin/tazobactam. 3. Monitor the wound culture. Thank you for this consultation. I will monitor the patient's progress and we will follow his cultures and we will make further recommendations upon followup. Travon Sanders MD [facility]/sv , 03:01 PM , 03:20 PM
--- NOTE | 2018-04-28 16:00 | P.PN ---
Subjective Interval history: Is at the margin of the bed. Says he feels a little bit better. Still with pain in his elbow. Neurovascular intact. No fever or chills overnight. No nausea or vomiting no diarrhea constipation. Plan for surgery tomorrow by Dr. Lucio. Physical Exam Vital signs: Vital Signs 04/27/18 18:28 04/27/18 21:30 04/28/18 00:00 Temperature 98.5 F Pulse Rate 74 100 H 89 Respiratory Rate 22 20 17 Blood Pressure 146/104 H 152/77 H 165/88 H Pulse Oximetry 99 98 98 04/28/18 04:00 04/28/18 08:00 04/28/18 11:53 Temperature 97.3 F L 97.1 F L Pulse Rate 62 74 Respiratory Rate 17 18 18 Blood Pressure 163/85 H 130/70 Pulse Oximetry 97 96 04/28/18 12:00 Temperature 97.3 F L Pulse Rate 54 L Respiratory Rate 19 Blood Pressure 110/65 Pulse Oximetry 97 Intake & Output 04/27/18 04/28/18 04/28/18 18:59 06:59 18:59 Intake Total 1467.5 / 1467.5 1100 / 1100 Balance 1467.5 / 1467.5 1100 / 1100 Weight 77.111 kg 77.1 kg Intake: IV 667.5 / 667.5 1100 / 1100 NS Inj 1,000 ML @ 100 mls/hr IV 1000 / 1000 .CONT .Q10H [facility] Rx#:[id number] Zosyn 3.375 GM Premix 50 ML @ 50 / 50 100 mls/hr IV.SIG ONCE ONE Rx#: [id number] Zosyn 4.5 GM Premix 4.5 gm In 100 / 100 100 / 100 100 ml @ 200 mls/hr IV.SIG Q6H [facility] Rx#:[id number] Vancomycin Inj 1,750 MG In NS 517.5 / 517.5 Inj 500 ML @ 258.75 mls/hr IV. SIG ONCE ONE Rx#:[id number] Oral 800 / 800 Other: # Voids 2 Date of Last Bowel Movement 04/28/18 Narrative: GENERAL: Patient sitting up in bed. Appears comfortable. Alert and oriented x3. CARDIOVASCULAR: Regular rate and rhythm. RESPIRATORY: No accessory muscle use. Clear to auscultation. Breath sounds equal bilaterally. GASTROINTESTINAL: Abdomen soft, non-tender, nondistended. Hepatic and splenic margins not palpable. MUSCULOSKELETAL: Extremities without clubbing, cyanosis, or edema. Right elbow with incision draining chi pus, minimal surrounding erythema. NEUROLOGICAL: Awake and alert. No obvious cranial nerve deficits. Motor grossly within normal limits. Five out of 5 muscle strength in the arms and legs. Normal speech. PSYCHIATRIC: Appropriate mood and affect; insight and judgment normal. Results - Labs CBC & Chem 7: 04/27/18 19:00 04/27/18 19:00 Laboratory Results - last 24 hr 04/27/18 04/27/18 04/27/18 19:00 19:00 21:40 WBC 9.6 RBC 4.46 L Hgb 13.8 Hct 41.2 MCV 92.3 MCH 31.0 MCHC 33.6 RDW 14.2 Plt Count 294 D MPV 8.1 Neut % (Auto) 62.2 Lymph % (Auto) 26.3 [place] % (Auto) 6.6 Eos % (Auto) 4.1 H Baso % (Auto) 0.8 Neut # (Auto) 6.0 Lymph # (Auto) 2.5 [place] # (Auto) 0.6 Eos # (Auto) 0.4 Baso # (Auto) 0.1 WBC Differential . Differential Comment Auto diff final ESR PT INR Sodium 139 Potassium 4.4 Chloride 105 Carbon Dioxide 25.1 Anion Gap 9 BUN 11 Creatinine 0.83 Estimated GFR Greater than 89 Random Glucose 90 Calcium 8.6 C-Reactive Protein Less than 0.29 04/27/18 04/28/18 21:40 05:28 WBC RBC Hgb Hct MCV MCH MCHC RDW Plt Count MPV Neut % (Auto) Lymph % (Auto) [place] % (Auto) Eos % (Auto) Baso % (Auto) Neut # (Auto) Lymph # (Auto) [place] # (Auto) Eos # (Auto) Baso # (Auto) WBC Differential Differential Comment ESR 55 H PT 10.9 INR 1.1 Sodium Potassium Chloride Carbon Dioxide Anion Gap BUN Creatinine Estimated GFR Random Glucose Calcium C-Reactive Protein Microbiology 04/27/18 20:00 Wound - Elbow Gram Stain - Final 04/27/18 20:00 Wound - Elbow Wound Culture - Preliminary Heavy growth normal skin markell at 24 hours 04/27/18 19:00 Blood - Peripheral Aerobic Blood Culture - Preliminary No growth in 1 day 04/27/18 19:00 Blood - Peripheral Anaerobic Blood Culture - Preliminary No growth in 1 day 04/27/18 18:50 Blood - Peripheral Aerobic Blood Culture - Preliminary No growth in 1 day 04/27/18 18:50 Blood - Peripheral Anaerobic Blood Culture - Preliminary No growth in 1 day - Imaging Impressions Elbow X-Ray 04/27/18 19:06 CONCLUSION: Open wound over extensor surface of the elbow with some soft tissue calcifications. Cortical surface lucency may represent some osteomyelitis involving the olecranon. Assessment and Plan - Plan Osteomyelitis right olecranon -X-ray right elbow shows osteomyelitis of the olecranon. ESR elevated in the 50s Continue on broad-spectrum antibiotics. Blood cultures, wound culture pending. -Consult infectious disease, orthopedics. Patient is n.p.o. after midnight for possible debridement tomorrow by Dr Lucio. Chronic smoking history with active tobacco abuse. Discussed with patient's the reasons he should quit, most pertinent being poor wound healing secondary to nicotine-induced vasoconstriction. Elevated blood pressures. 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 Discharge plan: Discharge when improved and cleared by Nathanael Fernando. Plan for possible debridement tomorrow by Dr. Hong
[2018-04-29] MEDS: oxyCODONE/Acetaminophen 10/325 Tablet PO PRN ×4 (00:30→22:23)
[2018-04-29] MEDS: Vancomycin Inj 1,750 MG in Sodium Chlor 0.9% Inj 500 ML IV.SIG SCH ×2 (02:09→14:38)
[2018-04-29] MEDS: Piperacil/Tazo 4.5 GM Premix 4.5 GM/100 ML BAG IV.SIG SCH ×4 (02:09→21:19)
[2018-04-29] MEDS: Sod Chloride 0.9% Inj 1,000 ML IV.CONT SCH ×2 (05:33→14:40)
[2018-04-29 06:34] LABS: Glomerular Filtration Rate Greater Than 89 mL/min (>89)
[2018-04-29] MEDS ORDERED: Bupivacaine/Epinephrine PF Inj 0.25% 10 ML Vial ONE (07:16)
[2018-04-29] MEDS ORDERED: Lidocaine PF 1% Inj 5 ML Syringe OTHER ONE (07:30)
[2018-04-29] MEDS ORDERED: Post-op Orders (for Pharmacy) OTHER STA (07:57)
--- NOTE | 2018-04-29 08:04 | P.OP ---
- Preoperative Diagnosis (1) Cellulitis (2) Bursitis due to bacterial infection (3) Osteomyelitis Date of procedure: 04/29/18 Procedure: Right elbow irrigation and debridement with debridement of olecranon osteomyelitis Anesthesia: GETA Surgeon: Armando Bell MD Chisel Worker: ANIKA Jensen PA-C The surgical procedure was assisted by my physician sales support assistant. My P.A. presence was necessary throughout this case for the manipulation and positioning of the surgical extremity. My P.A. was assisting me throughout the duration of this procedure. The skill set of a physician sales support assistant was medically necessary to complete this procedure. During the surgical case the medical surgical tech was working at the back table and the physician sales support assistant was directly assisting me. Operation and Findings: Karri was seen and evaluated preoperatively. He has a large open wound over his olecranon. X-rays are suspicious for osteomyelitis of olecranon. Informed consent was obtained preoperatively and operative site was marked. He is brought to operating room. Is given IV sedation and general anesthesia. He is placed in lateral decubitus position. Right arm was prepped with alcohol followed Hibiclens and draped in usual sterile fashion. Timeout procedure was performed. Procedure began with extension of the open wound proximally and distally. A portion of the triceps tendon appeared to be infected. An excisional debridement was performed. A portion of the triceps tendon was excised. Curettes and rongeurs were used to debride the olecranon. The bone appeared to be soft likely secondary to infection. Cultures were obtained from tissue and bone. After thorough debridement, wound was thoroughly irrigated with 3 L of sterile saline. Overall the wound appeared to be clean. At this point his return to VAC dressing. A small VAC dressing was cut to fit the wound. VAC dressing was sealed appropriately. Patient was awakened and transferred to recovery in stable condition.
--- NOTE | 2018-04-29 08:19 | P.PNOP ---
Subjective Interval history: Patient transferred to PACU in stable condition. Wound VAC in place over right elbow. Good seal. Physical Exam Vital signs: Vital Signs 04/28/18 11:53 04/28/18 12:00 04/28/18 16:00 Temperature 97.3 F L 97.2 F L Pulse Rate 54 L 58 L Respiratory Rate 18 19 18 Blood Pressure 110/65 157/89 H Pulse Oximetry 97 04/28/18 18:09 04/28/18 20:00 04/29/18 00:00 Temperature 98.1 F 98.5 F Pulse Rate 68 65 Respiratory Rate 18 20 20 Blood Pressure 140/83 149/86 H Pulse Oximetry 99 100 Intake & Output 04/28/18 04/29/18 04/29/18 18:59 06:59 18:59 Intake Total 2677.5 / 2677.5 300 / 300 Output Total Balance 2677.5 / 2677.5 295 / 295 Weight 66.2 kg Intake: IV 1717.5 / 1717.5 1717.5 / 1717.5 100 / 100 NS Inj 1,000 ML @ 100 mls/hr IV 1000 / 1000 1000 / 1000 .CONT .Q10H [facility] Rx#:[id number] Zosyn 4.5 GM Premix 4.5 gm In 200 / 200 200 / 200 100 / 100 100 ml @ 200 mls/hr IV.SIG Q6H [facility] Rx#:[id number] Vancomycin Inj 1,750 MG In NS 517.5 / 517.5 517.5 / 517.5 Inj 500 ML @ 250 mls/hr IV.SIG Q12H [facility] Rx#:[id number] Oral 300 / 300 960 / 960 Anesthesia Amount 200 / 200 Output: Estimated Blood Loss Other: # Voids 2 6 Date of Last Bowel Movement 04/28/18 04/29/18 # Bowel Movements 1 Narrative: Right upper extremity: Clean dry dressing intact with wound VAC in place. Wound VAC settings are at 125 DPC 3-1. Intact distal pulses and good capillary refills Results - Labs CBC & Chem 7: 04/27/18 19:00 04/29/18 05:20 Laboratory Results - last 24 hr 04/29/18 05:20 Creatinine 0.73 Estimated GFR Greater than 89 Microbiology 04/27/18 20:00 Wound - Elbow Gram Stain - Final 04/27/18 20:00 Wound - Elbow Wound Culture - Preliminary Heavy growth normal skin markell at 24 hours 04/27/18 19:00 Blood - Peripheral Aerobic Blood Culture - Preliminary No growth in 1 day 04/27/18 19:00 Blood - Peripheral Anaerobic Blood Culture - Preliminary No growth in 1 day 04/27/18 18:50 Blood - Peripheral Aerobic Blood Culture - Preliminary No growth in 1 day 04/27/18 18:50 Blood - Peripheral Anaerobic Blood Culture - Preliminary No growth in 1 day Assessment and Plan - Assessment and Plan Irrigation debridement of right elbow with wound VAC application POD 0 Maintain wound VAC and dressing 125 mmHg and DPC 3: 1 Cultures obtained Antibiotics continued We will plan on irrigation debridement later this week with possible wound closure
[2018-04-29] MEDS ORDERED: *morphine SULFATE 4 MG/ML PERIprocedure ONLY ONE (08:34)
[2018-04-29] MEDS ORDERED: fentaNYL Citrate Inj 100 MCG/2 ML Ampul ONE (08:35)
--- NOTE | 2018-04-29 15:40 | P.PN ---
Subjective Interval history: Seen later today after surgery. Says he has a little bit more pain in his right elbow. No fever or chills overnight. Was able to eat after the surgery no nausea or vomiting. Physical Exam Vital signs: Vital Signs 04/28/18 16:00 04/28/18 18:09 04/28/18 20:00 Temperature 97.2 F L 98.1 F Pulse Rate 58 L 68 Respiratory Rate 18 18 20 Blood Pressure 157/89 H 140/83 Pulse Oximetry 99 04/29/18 00:00 04/29/18 08:00 04/29/18 08:16 Temperature 98.5 F 97.2 F L 97.6 F Pulse Rate 65 54 L 75 Respiratory Rate 20 14 17 Blood Pressure 149/86 H 152/83 H 165/88 H Pulse Oximetry 100 97 99 04/29/18 08:30 04/29/18 08:45 04/29/18 12:00 Temperature 97.7 F 97.4 F L Pulse Rate 63 61 90 Respiratory Rate 15 21 14 Blood Pressure 155/84 H 158/84 H 134/80 Pulse Oximetry 100 100 97 Intake & Output 04/28/18 04/29/18 04/29/18 18:59 06:59 18:59 Intake Total 2677.5 / 2677.5 400 / 400 Output Total Balance 2677.5 / 2677.5 385 / 385 Weight 66.2 kg Intake: IV 1717.5 / 1717.5 1717.5 / 1717.5 200 / 200 NS Inj 1,000 ML @ 100 mls/hr IV 1000 / 1000 1000 / 1000 .CONT .Q10H [facility] Rx#:[id number] Zosyn 4.5 GM Premix 4.5 gm In 200 / 200 200 / 200 200 / 200 100 ml @ 200 mls/hr IV.SIG Q6H [facility] Rx#:[id number] Vancomycin Inj 1,750 MG In NS 517.5 / 517.5 517.5 / 517.5 Inj 500 ML @ 250 mls/hr IV.SIG Q12H [facility] Rx#:[id number] Oral 300 / 300 960 / 960 0 / 0 Anesthesia Amount 200 / 200 Output: Urine 0 / 0 Estimated Blood Loss Wound Drainage Right Elbow Other: Mode Setting Right Elbow Intermittent # Voids 2 6 Date of Last Bowel Movement 04/28/18 04/29/18 04/29/18 # Bowel Movements 1 Narrative: Right upper extremity: Clean dry dressing intact with wound VAC in place. Wound VAC settings are at 125 DPC 3-1. Intact distal pulses and good capillary refills Results - Labs CBC & Chem 7: 04/27/18 19:00 04/29/18 05:20 Laboratory Results - last 24 hr 04/29/18 05:20 Creatinine 0.73 Estimated GFR Greater than 89 Microbiology 04/27/18 19:00 Blood - Peripheral Aerobic Blood Culture - Preliminary No growth in 2 days 04/27/18 19:00 Blood - Peripheral Anaerobic Blood Culture - Preliminary No growth in 2 days 04/27/18 18:50 Blood - Peripheral Aerobic Blood Culture - Preliminary No growth in 2 days 04/27/18 18:50 Blood - Peripheral Anaerobic Blood Culture - Preliminary No growth in 2 days 04/27/18 20:00 Wound - Elbow Gram Stain - Final 04/27/18 20:00 Wound - Elbow Wound Culture - Final Heavy growth normal skin markell No anaerobes isolated - Procedures S/P Right elbow irrigation and debridement with debridement of olecranon by Dr Lucio on 04/29/18 Assessment and Plan - Plan Osteomyelitis right olecranon -X-ray right elbow shows osteomyelitis of the olecranon. ESR elevated in the 50s Continue on broad-spectrum antibiotics. Blood cultures, wound culture pending. -Consult infectious disease, orthopedics. S/P Right elbow irrigation and debridement with debridement of olecranon by Dr Lucio on 04/29/18 Chronic smoking history with active tobacco abuse. Discussed with patient's the reasons he should quit, most pertinent being poor wound healing secondary to nicotine-induced vasoconstriction. Elevated blood pressures. 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 Discharge plan: Discharge when improved and cleared by Nathanael Fernando. Plan for possible debridement tomorrow by Dr. Hong
[2018-04-30] MEDS: Sod Chloride 0.9% Inj 1,000 ML IV.CONT SCH ×3 (01:37→20:11)
[2018-04-30] MEDS: Piperacil/Tazo 4.5 GM Premix 4.5 GM/100 ML BAG IV.SIG SCH ×3 (01:55→15:39)
[2018-04-30] MEDS ORDERED: Pharmacy Ordered Lab Info OTHER ONE (02:45)
[2018-04-30] MEDS: Vancomycin Inj 1,750 MG in Sodium Chlor 0.9% Inj 500 ML IV.SIG SCH (03:44)
--- NOTE | 2018-04-30 07:15 | P.PNOP ---
Subjective Interval history: POD 1 s/p I&D with vac application right elbow doing well. pain controlled. no new complaints. Physical Exam Vital signs: Vital Signs 04/29/18 08:00 04/29/18 08:16 04/29/18 08:30 Temperature 97.2 F L 97.6 F Pulse Rate 54 L 75 63 Respiratory Rate 14 17 15 Blood Pressure 152/83 H 165/88 H 155/84 H Pulse Oximetry 97 99 100 04/29/18 08:45 04/29/18 12:00 04/29/18 16:00 Temperature 97.7 F 97.4 F L 98.2 F Pulse Rate 61 90 60 Respiratory Rate 21 14 16 Blood Pressure 158/84 H 134/80 163/93 H Pulse Oximetry 100 97 100 04/29/18 17:43 04/29/18 20:00 04/30/18 00:00 Temperature 98.2 F 98.7 F Pulse Rate 64 62 Respiratory Rate 17 17 Blood Pressure 152/70 H 144/73 H 170/101 H Pulse Oximetry 100 99 04/30/18 04:00 Temperature 98.1 F Pulse Rate 66 Respiratory Rate 17 Blood Pressure 124/64 Pulse Oximetry 97 Intake & Output 04/29/18 04/30/18 04/30/18 18:59 06:59 18:59 Intake Total 1877.5 / 1877.5 2677.5 / 2677.5 Output Total 65 / 65 950 / 950 Balance 1812.5 / 1812.5 1727.5 / 1727.5 Weight 66.2 kg Intake: IV 717.5 / 717.5 1717.5 / 1717.5 NS Inj 1,000 ML @ 100 mls/hr IV 1000 / 1000 .CONT .Q10H [facility] Rx#:[id number] Zosyn 4.5 GM Premix 4.5 gm In 200 / 200 200 / 200 100 ml @ 200 mls/hr IV.SIG Q6H [facility] Rx#:[id number] Vancomycin Inj 1,750 MG In NS 517.5 / 517.5 517.5 / 517.5 Inj 500 ML @ 250 mls/hr IV.SIG Q12H [facility] Rx#:[id number] Oral 960 / 960 960 / 960 Anesthesia Amount 200 / 200 Output: Urine 0 / 0 950 / 950 Estimated Blood Loss 5 / 5 Wound Drainage 10 / Right Elbow 10 / 10 Wound Vac Amount 50 / 50 Right Elbow 50 / 50 Other: Mode Setting Right Elbow Intermittent Intermittent # Voids 4 Date of Last Bowel Movement 04/29/18 04/29/18 # Bowel Movements 2 Narrative: RUE: dressinsg clean and dry. intact. NVI. + vac. good seal Results - Labs CBC & Chem 7: 04/27/18 19:00 04/29/18 05:20 Laboratory Results - last 24 hr 04/30/18 02:40 Vancomycin Trough 18.8 H Microbiology 04/29/18 08:04 Wound - Elbow Fungal Smear - Final No fungal elements seen 04/29/18 08:04 Wound - Elbow Gram Stain - Final 04/29/18 08:04 Wound - Elbow Fungal Smear - Final No fungal elements seen 04/29/18 08:04 Wound - Elbow Gram Stain - Final 04/27/18 19:00 Blood - Peripheral Aerobic Blood Culture - Preliminary No growth in 2 days 04/27/18 19:00 Blood - Peripheral Anaerobic Blood Culture - Preliminary No growth in 2 days 04/27/18 18:50 Blood - Peripheral Aerobic Blood Culture - Preliminary No growth in 2 days 04/27/18 18:50 Blood - Peripheral Anaerobic Blood Culture - Preliminary No growth in 2 days 04/27/18 20:00 Wound - Elbow Gram Stain - Final 04/27/18 20:00 Wound - Elbow Wound Culture - Final Heavy growth normal skin markell No anaerobes isolated - Procedures S/P Right elbow irrigation and debridement with debridement of olecranon by Dr Lucio on 04/29/18 Assessment and Plan - Assessment and Plan Irrigation debridement of right elbow with wound VAC application POD 1 Maintain wound VAC and dressing 125 mmHg and DPC 3: 1 Cultures obtained Antibiotics continued We will plan on irrigation debridement later this week with possible wound closure awaiting cultures and Infectious Dz recs maintain vac WBAT
[2018-04-30] MEDS: oxyCODONE/Acetaminophen 10/325 Tablet PO PRN ×2 (08:33→15:44)
--- NOTE | 2018-04-30 11:08 | P.PN ---
Subjective Interval history: Pt seen and examined for f/u R elbow osteomyelitis. Reports pain is controlled. No complaints. Denies CP, SOB, abdominal pain, N/V. Ambulating. Tolerating PO. Physical Exam Vital signs: Vital Signs 04/29/18 12:00 04/29/18 16:00 04/29/18 17:43 Temperature 97.4 F L 98.2 F Pulse Rate 90 60 Respiratory Rate 14 16 Blood Pressure 134/80 163/93 H 152/70 H Pulse Oximetry 97 100 04/29/18 20:00 04/30/18 00:00 04/30/18 04:00 Temperature 98.2 F 98.7 F 98.1 F Pulse Rate 64 62 66 Respiratory Rate 17 17 17 Blood Pressure 144/73 H 170/101 H 124/64 Pulse Oximetry 100 99 97 Intake & Output 04/29/18 04/30/18 04/30/18 18:59 06:59 18:59 Intake Total 1877.5 / 1877.5 2677.5 / 2677.5 Output Total 65 / 65 950 / 950 Balance 1812.5 / 1812.5 1727.5 / 1727.5 Weight 66.2 kg Intake: IV 717.5 / 717.5 1717.5 / 1717.5 NS Inj 1,000 ML @ 100 mls/hr IV 1000 / 1000 .CONT .Q10H [facility] Rx#:[id number] Zosyn 4.5 GM Premix 4.5 gm In 200 / 200 200 / 200 100 ml @ 200 mls/hr IV.SIG Q6H [facility] Rx#:[id number] Vancomycin Inj 1,750 MG In NS 517.5 / 517.5 517.5 / 517.5 Inj 500 ML @ 250 mls/hr IV.SIG Q12H [facility] Rx#:[id number] Oral 960 / 960 960 / 960 Anesthesia Amount 200 / 200 Output: Urine 0 / 0 950 / 950 Estimated Blood Loss 5 / 5 Wound Drainage 10 / 10 Right Elbow 10 / 10 Wound Vac Amount 50 / 50 Right Elbow 50 / 50 Other: Mode Setting Right Elbow Intermittent Intermittent # Voids 4 Date of Last Bowel Movement 04/29/18 04/29/18 # Bowel Movements 2 Narrative: GEN: WN, WD male resting in bed in NAD. SKIN: Warm and dry. HEENT: AT/NC. Pupils equal and round. MMM. HEART: RRR no m/r/g. LUNGS: CTAB w/o wheezes or crackles. ABDOMEN: Soft, NT, ND. EXTREMITIES: R elbow with dressing in place, C/D. Wound vac present. NEURO: Awake and alert. Results - Labs CBC & Chem 7: 04/27/18 19:00 04/29/18 05:20 Laboratory Results - last 24 hr 04/30/18 02:40 Vancomycin Trough 18.8 H Microbiology 04/27/18 19:00 Blood - Peripheral Aerobic Blood Culture - Preliminary No growth in 3 days 04/27/18 19:00 Blood - Peripheral Anaerobic Blood Culture - Preliminary No growth in 3 days 04/27/18 18:50 Blood - Peripheral Aerobic Blood Culture - Preliminary No growth in 3 days 04/27/18 18:50 Blood - Peripheral Anaerobic Blood Culture - Preliminary No growth in 3 days 04/29/18 08:04 Wound - Elbow Fungal Smear - Final No fungal elements seen 04/29/18 08:04 Wound - Elbow Gram Stain - Final 04/29/18 08:04 Wound - Elbow Fungal Smear - Final No fungal elements seen 04/29/18 08:04 Wound - Elbow Gram Stain - Final 04/27/18 20:00 Wound - Elbow Gram Stain - Final 04/27/18 20:00 Wound - Elbow Wound Culture - Final Heavy growth normal skin markell No anaerobes isolated - Procedures S/P Right elbow irrigation and debridement with debridement of olecranon by Dr Lucio on 04/29/18 Assessment and Plan - Assessment (1) Osteomyelitis Code(s): M86.9 - Osteomyelitis, unspecified Status: Acute - Plan 53 YOWM with history of tobacco abuse and recent admission for R olecranon bursitis s/p debridement and IV antibiotic administration with wound culture growing Eikenella. He was discharged on 04/16 with wound care after completing antibiotics. He returned to the ED with worsening pain and purulence and was subsequently re-admitted on 04/27 with new finding of osteomyelitis. 1. Osteomyelitis R olecranon - X-ray right elbow shows osteomyelitis of the olecranon. ESR elevated in the 50s - Ortho following, s/p irrigation and debridement on 04/29. Planning for another debridement this week - Wound vac in place - Wound care following - ID following, changed vanco to ampicillin and discontinued Zosyn. Will need 6 weeks of IV abx until 06/08. Can have Rocephin used as alternative to ampicillin for outpatient treatment - PICC prior to d/c - Pain control - PT/OT - WBAT 2. Tobacco abuse - Prior counselling provided 3. 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 Will need 6 weeks IV antibiotics (1) Osteomyelitis Qualifiers: Osteomyelitis type: unspecified type Osteomyelitis location: ulna Laterality : right Qualified Code(s): M86.9 - Osteomyelitis, unspecified
[2018-04-30] MEDS ORDERED: Vancomycin Inj 1,500 MG in Sodium Chlor 0.9% Inj 500 ML IV.SIG SCH (15:00)
--- NOTE | 2018-04-30 15:55 | P.PNID ---
Subjective Remarks: Patient is laying in bed and is in no acute distress. He now has a wound VAC over the right elbow. No chills. No fever. Wound culture has no growth. This is a 53-year-old white male who was recently in the hospital for bursitis of the right elbow. The patient received IV antibiotic treatment. He had culture that grew Eikenella and he received IV antibiotics in the hospital. At one point, there was a wound VAC applied to the wound and the patient was noncompliant and the wound VAC was removed and he was discharged home to have wound dressing changes at home. He was to do the wound dressing changes approximately every 5 days. He did it twice. The second time, his mom looked at the wound and it did not look like it was healing well and there was erythema at the wound site. The patient presented to the emergency department. The patient also notes that he was not taking pain medicines at home because he had little pain. However, he developed pain prior to coming to the emergency department. He also was noted to have discharge coming from the wound. Allergies/Adverse Reactions: Allergies shellfish derived Adverse Reaction (Intermediate, Verified 04/27/18 18:21) Nausea/Vomiting Objective Vital Signs 04/29/18 16:00 04/29/18 17:43 04/29/18 20:00 Temperature 98.2 F 98.2 F Pulse Rate 60 64 Respiratory Rate 16 17 Blood Pressure 163/93 H 152/70 H 144/73 H Pulse Oximetry 100 100 04/30/18 00:00 04/30/18 04:00 04/30/18 08:00 Temperature 98.7 F 98.1 F 98.3 F Pulse Rate 62 66 75 Respiratory Rate 17 17 16 Blood Pressure 170/101 H 124/64 151/62 H Pulse Oximetry 99 97 96 04/30/18 12:00 Temperature 97.8 F Pulse Rate 55 L Respiratory Rate 16 Blood Pressure 126/73 Pulse Oximetry 97 Intake & Output 04/29/18 04/30/18 04/30/18 18:59 06:59 18:59 Intake Total 1877.5 / 1877.5 2677.5 / 2677.5 100 / 100 Output Total 65 / 65 950 / 950 Balance 1812.5 / 1812.5 1727.5 / 1727.5 100 / 100 Weight 66.2 kg Intake: IV 717.5 / 717.5 1717.5 / 1717.5 100 / 100 NS Inj 1,000 ML @ 100 mls/hr IV 1000 / 1000 .CONT .Q10H [facility] Rx#:[id number] Zosyn 4.5 GM Premix 4.5 gm In 200 / 200 200 / 200 100 / 100 100 ml @ 200 mls/hr IV.SIG Q6H [facility] Rx#:[id number] Vancomycin Inj 1,750 MG In NS 517.5 / 517.5 517.5 / 517.5 Inj 500 ML @ 250 mls/hr IV.SIG Q12H [facility] Rx#:[id number] Oral 960 / 960 960 / 960 Anesthesia Amount 200 / 200 Output: Urine 0 / 0 950 / 950 Estimated Blood Loss 5 / 5 Wound Drainage Right Elbow 10 Wound Vac Amount 50 / 50 Right Elbow 50 / 50 Other: Mode Setting Right Elbow Intermittent Intermittent Intermittent # Voids 4 Date of Last Bowel Movement 04/29/18 04/29/18 # Bowel Movements 2 04/29/18 08:04 Wound - Elbow Acid Fast Bacilli Smear - Final No acid fast bacilli seen 04/29/18 08:04 Wound - Elbow Mycobacterial Culture - Pending 04/29/18 08:04 Wound - Elbow Acid Fast Bacilli Smear - Final No acid fast bacilli seen 04/29/18 08:04 Wound - Elbow Mycobacterial Culture - Pending 04/29/18 08:04 Wound - Elbow Gram Stain - Final 04/29/18 08:04 Wound - Elbow Wound Culture - Preliminary Heavy growth normal skin markell at 24 hours 04/29/18 08:04 Wound - Elbow Gram Stain - Final 04/29/18 08:04 Wound - Elbow Wound Culture - Preliminary Heavy growth normal skin markell at 24 hours 04/27/18 19:00 Blood - Peripheral Aerobic Blood Culture - Preliminary No growth in 3 days 04/27/18 19:00 Blood - Peripheral Anaerobic Blood Culture - Preliminary No growth in 3 days 04/27/18 18:50 Blood - Peripheral Aerobic Blood Culture - Preliminary No growth in 3 days 04/27/18 18:50 Blood - Peripheral Anaerobic Blood Culture - Preliminary No growth in 3 days 04/29/18 08:04 Wound - Elbow Fungal Smear - Final No fungal elements seen 04/29/18 08:04 Wound - Elbow Fungal Culture - Pending 09/30/18 08:04 Wound - Elbow Fungal Smear - Final No fungal elements seen 04/29/18 08:04 Wound - Elbow Fungal Culture - Pending 04/27/18 20:00 Wound - Elbow Gram Stain - Final 04/27/18 20:00 Wound - Elbow Wound Culture - Final Heavy growth normal skin markell No anaerobes isolated Lab - Chemistry Results 04/29/18 05:20 Creatinine 0.73 Estimated GFR Greater than 89 Imaging: ITS Impressions Elbow X-Ray 04/27/18 19:06 CONCLUSION: Open wound over extensor surface of the elbow with some soft tissue calcifications. Cortical surface lucency may represent some osteomyelitis involving the olecranon. Physical Exam: PHYSICAL EXAMINATION: GENERAL: No acute distress. HEENT: Head is atraumatic. Extraocular movement intact. Pupils reactive to light. No icterus. Oropharynx moist mucosa without lesions. LUNGS: Clear to auscultation. HEART: Regular S1 and S2, without murmurs. EXTREMITIES: The right elbow now has a wound VAC in place. The elbow wound appears dry. SKIN: No rash NEUROLOGIC: No gross focal finding. PSYCHIATRIC: Calm and cooperative. Assessment and Plan - Plan IMPRESSION: 1. Open nonhealing wound over the right olecranon. 2. Osteomyelitis involving the right olecranon with what appears to be exposed bone. The patient recently treated for infection of the right elbow. Eikenella recovered on previous culture. 3. Cellulitis involving the left elbow. RECOMMENDATIONS: 1. Change vancomycin to Ampicillin IV. 2. Stop piperacillin/tazobactam. 3. Monitor response and continue to follow the cultures. Patient will need outpatient ID follow up on discharge. Give 6 weeks of IV antibiotics until Jun 08, 2018. Can use Ceftriaxone as alternative to Ampicillin for out patient treatment. Please have PIC placed and call ID when ready to discharge.
[2018-05-01] MEDS: oxyCODONE/Acetaminophen 10/325 Tablet PO PRN ×4 (00:23→23:20)
[2018-05-01] MEDS: Sod Chloride 0.9% Inj 1,000 ML IV.CONT SCH ×3 (04:48→17:44)
[2018-05-01 06:17] LABS: Anion Gap 10 meq/L (5-15); Blood Urea Nitrogen 10 mg/dL (7-18); Calcium 8.3 mg/dL (8.5-10.1); Carbon Dioxide 25.9 meq/L (21.0-32.0); Chloride 106 meq/L (98-107); Glomerular Filtration Rate Greater Than 89 mL/min (>89); Glucose,Random 88 mg/dL (74-106); Potassium 3.7 meq/L (3.5-5.1); Sodium 142 meq/L (136-145)
[2018-05-01] MEDS ORDERED: Metoprolol Tartrate 25 MG Tablet PO ONE (06:22)
[2018-05-01] MEDS ORDERED: Chlorhexidine Gluconate 2% 1 Pack (2 Cloths) TOPICAL ONE (06:22)
[2018-05-01] MEDS ORDERED: Lidocaine PF 1% Inj 5 ML Syringe OTHER ONE (08:30)
[2018-05-01] MEDS ORDERED: Post-op Orders (for Pharmacy) OTHER STA (09:13)
--- NOTE | 2018-05-01 09:22 | P.OP ---
- Preoperative Diagnosis (1) Osteomyelitis Date of procedure: 05/01/18 Procedure: Irrigation and debridement of right olecranon with secondary closure of wound Anesthesia: SHERRY Surgeon: Armando Bell MD [employer] Fab[employer]ator: ANIKA Jensen PA-C The surgical procedure was assisted by my physician pediatric medical assistant. My P.A. presence was necessary throughout this case for the manipulation and positioning of the surgical extremity. My P.A. was assisting me throughout the duration of this procedure. The skill set of a physician pediatric medical assistant was medically necessary to complete this procedure. During the surgical case the certified surgical technician was working at the back table and the physician pediatric medical assistant was directly assisting me. Operation and Findings: Karri returned to the operating room today for his right elbow. Informed consent was confirmed and operative site was marked. He is brought the operating room. He was given IV sedation and general anesthesia. Timeout procedure was performed. He is on scheduled antibiotics. He was placed in lateral decubitus position. Right arm was prepped with alcohol followed Hibiclens and draped in usual sterile fashion. Procedure began with debridement of the wound. Overall the tissue appeared to be healthy. Curettes were used to debride bone. There was early grade and fixation tissue present. Wound was now thoroughly irrigated with pulsatile lavage. At this point attention was turned towards wound closure. The skin edges were mobilized using a scalpel. The skin edges were closed. Subcutaneous tissue was closed with 3-0 PDS. Skin was closed with 3-0 nylon. A combination of retention suture and vertical mattress sutures were utilized. The skin was completely closed with minimal skin tension. Sterile dressings were applied. Patient was placed into a splint to help protect the incision. He was awakened and transferred to recovery room in stable condition. Needle sponge counts were correct.
[2018-05-01] MEDS ORDERED: fentaNYL Citrate Inj 100 MCG/2 ML Ampul ONE (09:41)
[2018-05-01] MEDS ORDERED: *Meperidine Inj 25 MG/ML Vial PERIprocedural Use ONLY ONE (09:53)
[2018-05-01] MEDS: amLODIPine 5 MG Tablet PO SCH (10:48)
--- NOTE | 2018-05-01 12:07 | P.PN ---
Subjective Interval history: Follow-up visit for osteomyelitis of right elbow status post irrigation and debridement. Patient seen and examined resting in bed in no acute distress. He reports that he was in the OR this morning for surgical procedure once again , some pain and discomfort on right elbow at the moment. Denies any fevers, chills, nausea, vomiting, shortness of breath, cough or chest pain. No acute events reported by patient or nurse. Physical Exam Vital signs: Vital Signs 04/30/18 16:00 05/01/18 00:26 05/01/18 02:00 Temperature 98.1 F 98.4 F Pulse Rate 69 78 58 L Respiratory Rate 18 20 Blood Pressure 189/87 H 178/101 H 153/89 H Pulse Oximetry 96 99 05/01/18 06:57 05/01/18 09:33 05/01/18 09:45 Temperature 97.7 F 97.6 F Pulse Rate 61 55 L 70 Respiratory Rate 18 20 15 Blood Pressure 151/85 H 94/50 L 150/83 H Pulse Oximetry 96 96 100 05/01/18 10:00 05/01/18 10:07 05/01/18 11:58 Temperature 97.8 F 97.8 F Pulse Rate 60 58 L 58 L Respiratory Rate 18 14 18 Blood Pressure 148/72 H 139/75 162/82 H Pulse Oximetry 98 97 96 Intake & Output 04/30/18 05/01/18 05/01/18 18:59 06:59 18:59 Intake Total 840 / 840 1880 / 1880 700 / 700 Output Total 100 / 100 0 / 0 20 / 20 Balance 740 / 740 1880 / 1880 680 / 680 Weight 79.8 kg Intake: IV 200 / 200 1400 / 1400 100 / 100 NS Inj 1,000 ML @ 100 mls/hr IV 1000 / 1000 .CONT .Q10H [facility] Rx#:[id number] Ampicillin Inj 2,000 MG In NS 100 / 100 300 / 300 100 / 100 Inj 100 ML @ 400 mls/hr IV.SIG Q4H [facility] Rx#:[id number] Zosyn 4.5 GM Premix 4.5 gm In 100 / 100 100 / 100 100 ml @ 200 mls/hr IV.SIG Q6H [facility] Rx#:[id number] Oral 640 / 640 480 / 480 Anesthesia Amount 600 / 600 Output: Estimated Blood Loss 20 / 20 Wound Drainage 0 / 0 Right Elbow 0 / 0 Wound Vac Amount 100 / 100 Right Elbow 100 / 100 Other: Mode Setting Right Elbow Continuous Intermittent # Voids 4 1 Date of Last Bowel Movement 04/30/18 # Bowel Movements 1 Narrative: GENERAL: Well-nourished, well-developed male resting in bed in no acute distress. SKIN: Warm and dry. HEENT: Atraumatic, pupils equal round reactive, mucous membranes pink and moist. HEART: Regular rate and rhythm with no murmurs appreciated LUNGS: Bilateral upper and lower lung squires clear. ABDOMEN: Soft, nontender, positive bowel sounds. EXTREMITIES: Right upper extremity wrapped in Fabian bandage. All 5 fingers with capillary refill less than 3 seconds, positive sensation, positive movement. NEURO: Awake and alert. Results - Labs CBC & Chem 7: 04/27/18 19:00 05/01/18 04:55 Laboratory Results - last 24 hr 05/01/18 04:55 Sodium 142 Potassium 3.7 Chloride 106 Carbon Dioxide 25.9 Anion Gap 10 BUN 10 Creatinine 0.74 Estimated GFR Greater than 89 Random Glucose 88 Calcium 8.3 L Microbiology 04/27/18 19:00 Blood - Peripheral Aerobic Blood Culture - Preliminary No growth in 4 days 04/27/18 19:00 Blood - Peripheral Anaerobic Blood Culture - Preliminary No growth in 4 days 04/27/18 18:50 Blood - Peripheral Aerobic Blood Culture - Preliminary No growth in 4 days 04/27/18 18:50 Blood - Peripheral Anaerobic Blood Culture - Preliminary No growth in 4 days 04/29/18 08:04 Wound - Elbow Gram Stain - Final 04/29/18 08:04 Wound - Elbow Wound Culture - Final 04/29/18 08:04 Wound - Elbow Gram Stain - Final 04/29/18 08:04 Wound - Elbow Wound Culture - Final 04/29/18 08:04 Wound - Elbow Acid Fast Bacilli Smear - Final No acid fast bacilli seen 04/29/18 08:04 Wound - Elbow Acid Fast Bacilli Smear - Final No acid fast bacilli seen - Procedures S/P Right elbow irrigation and debridement with debridement of olecranon by Dr Lucio on 04/29/18 Assessment and Plan - Assessment (1) Osteomyelitis Code(s): M86.9 - Osteomyelitis, unspecified Status: Acute - Plan 53 YOWM with history of tobacco abuse and recent admission for R olecranon bursitis s/p debridement and IV antibiotic administration with wound culture growing Eikenella. He was discharged on 04/16 with wound care after completing antibiotics. He returned to the ED with worsening pain and purulence and was subsequently re-admitted on 04/27 with new finding of osteomyelitis. 1. Osteomyelitis R olecranon - X-ray right elbow shows osteomyelitis of the olecranon. ESR elevated in the 50s - Ortho following, s/p irrigation and debridement on 04/29. - Wound vac in place removed and back in the OR 04/30 for irrigation and debridement of right olecranon with secondary closure of wound by . - Wound care following - ID following, changed vanco to ampicillin and discontinued Zosyn. Will need 6 weeks of IV abx until 06/08. Can have Rocephin used as alternative to ampicillin for outpatient treatment - PICC prior to d/c - Pain control - PT/OT - WBAT 2. Tobacco abuse - Prior counselling provided 3. HTN -Started on p.o. Norvasc, BPs improved. 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 prior to discharge. Will need PICC line with IV recommendations per ID prior to discharge. (1) Osteomyelitis Qualifiers: Osteomyelitis type: unspecified type Osteomyelitis location: ulna Laterality : right Qualified Code(s): M86.9 - Osteomyelitis, unspecified
[2018-05-02] MEDS ORDERED: Pharmacy Ordered Lab Info OTHER ONE (02:45)
[2018-05-02] MEDS: Sod Chloride 0.9% Inj 1,000 ML IV.CONT SCH ×4 (03:47→23:35)
[2018-05-02] MEDS: oxyCODONE/Acetaminophen 10/325 Tablet PO PRN ×3 (05:28→18:36)
[2018-05-02] MEDS: amLODIPine 5 MG Tablet PO SCH (09:34)
--- NOTE | 2018-05-02 13:29 | P.PN ---
Subjective Interval history: Follow-up visit for right elbow OM post-op day one following irrigation and debridement of right olecranon with secondary closure of wound by . Patient is seen and examined sitting up on the side of the bed having lunch. Reports right elbow pain, but improved compared to yesterday. He denies any fevers, chills, N/V/D. Physical Exam Vital signs: Vital Signs 05/01/18 16:00 05/01/18 20:00 05/02/18 00:00 Temperature 97.9 F 98.3 F 98.0 F Pulse Rate 65 81 77 Respiratory Rate 16 17 17 Blood Pressure 136/71 149/86 H 127/82 Pulse Oximetry 97 95 96 05/02/18 04:00 05/02/18 08:00 05/02/18 12:00 Temperature 97.9 F 97.9 F 98.3 F Pulse Rate 69 61 67 Respiratory Rate 17 18 18 Blood Pressure 172/88 H 137/67 123/67 Pulse Oximetry 100 95 96 Intake & Output 05/01/18 05/02/18 05/02/18 18:59 06:59 18:59 Intake Total 2420 / 2420 1780 / 1780 192 / 1925 Output Total 20 / 20 Balance 2400 / 2400 1780 / 1780 1924 / 192 Weight 79.8 kg Intake: IV 1100 / 1100 1300 / 1300 1924 / 192 NS Inj 1,000 ML @ 100 mls/hr IV 1000 / 1000 1000 / 1000 725 / 725 .CONT .Q10H [facility] Rx#:[id number] Ampicillin Inj 2,000 MG In NS 100 / 100 300 / 300 200 / 200 Inj 100 ML @ 400 mls/hr IV.SIG Q4H [facility] Rx#:[id number] LR 1000 mL Inj 1,000 ML @ 30 1000 / 1000 mls/hr IV.SIG .Q24H [facility] Rx#: [id number] Oral 720 / 720 480 / 480 Anesthesia Amount 600 / 600 Output: Estimated Blood Loss 20 / 20 Other: # Voids 4 2 Date of Last Bowel Movement 05/02/18 # Bowel Movements 1 Narrative: GENERAL: Well-nourished, well-developed male resting in bed in no acute distress. SKIN: Warm and dry. HEENT: Atraumatic, pupils equal round reactive, mucous membranes pink and moist. HEART: Regular rate and rhythm with no murmurs appreciated LUNGS: Bilateral upper and lower lung squires clear. ABDOMEN: Soft, nontender, positive bowel sounds. EXTREMITIES: Right upper extremity wrapped in Fabian bandage. All 5 fingers with capillary refill less than 3 seconds, positive sensation, positive movement. NEURO: Awake and alert. Results - Labs CBC & Chem 7: 04/27/18 19:00 05/01/18 04:55 Microbiology 04/27/18 19:00 Blood - Peripheral Aerobic Blood Culture - Final No growth in 5 days 04/27/18 19:00 Blood - Peripheral Anaerobic Blood Culture - Final No growth in 5 days 04/27/18 18:50 Blood - Peripheral Aerobic Blood Culture - Final No growth in 5 days 04/27/18 18:50 Blood - Peripheral Anaerobic Blood Culture - Final No growth in 5 days - Procedures S/P Right elbow irrigation and debridement with debridement of olecranon by Dr Lucio on 04/29/18 Assessment and Plan - Assessment (1) Osteomyelitis Code(s): M86.9 - Osteomyelitis, unspecified Status: Acute - Plan 53 YOWM with history of tobacco abuse and recent admission for R olecranon bursitis s/p debridement and IV antibiotic administration with wound culture growing Eikenella. He was discharged on 04/16 with wound care after completing antibiotics. He returned to the ED with worsening pain and purulence and was subsequently re-admitted on 04/27 with new finding of osteomyelitis. 1. Osteomyelitis R olecranon - X-ray right elbow shows osteomyelitis of the olecranon. ESR elevated in the 50s - Ortho following, s/p irrigation and debridement on 04/29. - Wound vac in place removed and back in the OR 04/30 for irrigation and debridement of right olecranon with secondary closure of wound by . - ID following, changed vanco to ampicillin and discontinued Zosyn. Will need 6 weeks of IV abx until 06/08. Can have Rocephin used as alternative to ampicillin for outpatient treatment - Plans for PICC tomorrow. Will need final wound recommendations from Ortho and final antibiotic recommendations from ID. - Pain control - PT/OT - WBAT 2. Tobacco abuse - Prior counselling provided 3. HTN -Started on p.o. Norvasc, BPs improved. 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 prior to discharge. PICC tomorrow then need final antibiotic recommendations. (1) Osteomyelitis Qualifiers: Osteomyelitis type: unspecified type Osteomyelitis location: ulna Laterality : right Qualified Code(s): M86.9 - Osteomyelitis, unspecified
[2018-05-03] MEDS: oxyCODONE/Acetaminophen 10/325 Tablet PO PRN ×3 (01:30→15:16)
[2018-05-03 07:45] LABS: Baso % (Auto) 0.6 % (0.0-2.0); Eos # (Auto) 0.3 th/mm3 (0.0-0.4); Eos % (Auto) 3.8 % (0.0-4.0); Hematocrit 36.1 % (39.0-51.0); Hemoglobin 12.2 gm/dL (13.0-17.0); Lymph # (Auto) 1.9 th/mm3 (1.0-4.8); Lymph % (Auto) 27.2 % (9.0-44.0); Mean Corpuscular HGB Conc 33.6 % (32.0-36.0); Mean Corpuscular Hemoglobin 30.9 pg (27.0-34.0); Mean Corpuscular Volume 91.8 fL (80.0-100.0); Mean Platelet Volume 8.1 fL (7.0-11.0); Mono # (Auto) 0.8 th/mm3 (0.0-0.9); Neut % (Auto) 56.4 % (16.0-70.0); Platelet Count 180 th/mm3 (150-450); Red Blood Count 3.94 mil/mm3 (4.50-5.90); Red Cell Distribution Width 13.8 % (11.6-17.2)
--- NOTE | 2018-05-03 08:19 | P.PNOP ---
Subjective Interval history: Resting comfortably no new complaints Physical Exam Vital signs: Vital Signs 05/02/18 12:00 05/02/18 16:00 05/02/18 20:00 Temperature 98.3 F 98.1 F 98.0 F Pulse Rate 67 64 80 Respiratory Rate 18 18 19 Blood Pressure 123/67 130/72 158/98 H Pulse Oximetry 96 97 100 05/03/18 00:00 Temperature 98.4 F Pulse Rate 72 Respiratory Rate 20 Blood Pressure 143/82 H Pulse Oximetry 99 Intake & Output 05/02/18 05/03/18 05/03/18 18:59 06:59 18:59 Intake Total 2985 / 2985 1200 / 1200 100 / 100 Balance 2985 / 2985 1200 / 1200 100 / 100 Intake: IV 2025 / 2025 1200 / 1200 100 / 100 NS Inj 1,000 ML @ 100 mls/hr IV 725 / 725 1000 / 1000 .CONT .Q10H [facility] Rx#:[id number] Ampicillin Inj 2,000 MG In NS 300 / 300 200 / 200 100 / 100 Inj 100 ML @ 400 mls/hr IV.SIG Q4H [facility] Rx#:[id number] LR 1000 mL Inj 1,000 ML @ 30 1000 / 1000 mls/hr IV.SIG .Q24H [facility] Rx#: [id number] Oral 960 / 960 Other: # Voids 3 Date of Last Bowel Movement 05/02/18 Narrative: Splint in place right upper extremity distally intact sensation with active extension and flexion of all fingers. Good capillary refills and distal pulses Results - Labs CBC & Chem 7: 05/03/18 06:47 05/01/18 04:55 Laboratory Results - last 24 hr 05/03/18 06:47 WBC 7.0 RBC 3.94 L Hgb 12.2 L Hct 36.1 L MCV 91.8 MCH 30.9 MCHC 33.6 RDW 13.8 Plt Count 180 D MPV 8.1 Neut % (Auto) 56.4 Lymph % (Auto) 27.2 [place] % (Auto) 12.0 H Eos % (Auto) 3.8 Baso % (Auto) 0.6 Neut # (Auto) 4.0 Lymph # (Auto) 1.9 [place] # (Auto) 0.8 Eos # (Auto) 0.3 Baso # (Auto) 0.0 WBC Differential . Differential Comment Auto diff final Microbiology 04/27/18 19:00 Blood - Peripheral Aerobic Blood Culture - Final No growth in 5 days 04/27/18 19:00 Blood - Peripheral Anaerobic Blood Culture - Final No growth in 5 days 04/27/18 18:50 Blood - Peripheral Aerobic Blood Culture - Final No growth in 5 days 04/27/18 18:50 Blood - Peripheral Anaerobic Blood Culture - Final No growth in 5 days - Procedures S/P Right elbow irrigation and debridement with debridement of olecranon by Dr Lucio on 04/29/18 Assessment and Plan - Assessment and Plan Irrigation debridement of right elbow with wound VAC application POD 2 Maintain splint Cultures obtained Antibiotics continued awaiting cultures and Infectious Dz recs WBAT Follow-up appointment with Dr. Langley in [address] Langley performed original surgery and will continue to follow patient
[2018-05-03] MEDS: amLODIPine 5 MG Tablet PO SCH (08:52)
[2018-05-03] MEDS: Sod Chloride 0.9% Inj 1,000 ML IV.CONT SCH (08:52)
[2018-05-03 08:55] VITALS: RESP 17; O2SAT 98
[2018-05-03 09:12] LABS: Glomerular Filtration Rate Greater Than 89 mL/min (>89)
[2018-05-03] MEDS ORDERED: Heparin Central Flush 100 UNIT/ML 5 ML Vial IV.FLUSH PRN (12:32)
--- NOTE | 2018-05-03 13:32 | P.PNID ---
Subjective Remarks: Notes reviewed Temps ok NO complaints PICC in place This is a 53-year-old white male who was recently in the hospital for bursitis of the right elbow. The patient received IV antibiotic treatment. He had culture that grew Eikenella and he received IV antibiotics in the hospital. At one point, there was a wound VAC applied to the wound and the patient was noncompliant and the wound VAC was removed and he was discharged home to have wound dressing changes at home. He was to do the wound dressing changes approximately every 5 days. He did it twice. The second time, his mom looked at the wound and it did not look like it was healing well and there was erythema at the wound site. The patient presented to the emergency department. The patient also notes that he was not taking pain medicines at home because he had little pain. However, he developed pain prior to coming to the emergency department. He also was noted to have discharge coming from the wound. Antibiotics: Unasyn Lines: PICC Allergies/Adverse Reactions: Allergies shellfish derived Adverse Reaction (Intermediate, Verified 04/27/18 18:21) Nausea/Vomiting Objective Vital Signs 05/02/18 16:00 05/02/18 20:00 05/03/18 00:00 Temperature 98.1 F 98.0 F 98.4 F Pulse Rate 64 80 72 Respiratory Rate 18 19 20 Blood Pressure 130/72 158/98 H 143/82 H Pulse Oximetry 97 100 99 05/03/18 08:00 05/03/18 12:00 Temperature 97.7 F 97.4 F L Pulse Rate 60 66 Respiratory Rate 17 17 Blood Pressure 136/73 135/62 Pulse Oximetry 98 98 Intake & Output 05/02/18 05/03/18 05/03/18 18:59 06:59 18:59 Intake Total 2985 / 2985 1200 / 1200 1152 / 1152 Balance 2985 / 2985 1200 / 1200 1152 / 1152 Intake: IV 2024 / 2024 1200 / 1200 1152 / 1152 NS Inj 1,000 ML @ 100 mls/hr IV 725 / 725 1000 / 1000 852 / 852 .CONT .Q10H [facility] Rx#:[id number] Ampicillin Inj 2,000 MG In NS 300 / 300 200 / 200 300 / 300 Inj 100 ML @ 400 mls/hr IV.SIG Q4H [facility] Rx#:[id number] LR 1000 mL Inj 1,000 ML @ 30 1000 / 1000 mls/hr IV.SIG .Q24H [facility] Rx#: [id number] Oral 960 / 960 Other: # Voids 3 Date of Last Bowel Movement 05/02/18 05/02/18 04/27/18 19:00 Blood - Peripheral Aerobic Blood Culture - Final No growth in 5 days 04/27/18 19:00 Blood - Peripheral Anaerobic Blood Culture - Final No growth in 5 days 04/27/18 18:50 Blood - Peripheral Aerobic Blood Culture - Final No growth in 5 days 04/27/18 18:50 Blood - Peripheral Anaerobic Blood Culture - Final No growth in 5 days 04/29/18 08:04 Wound - Elbow Gram Stain - Final 04/29/18 08:04 Wound - Elbow Wound Culture - Final 04/29/18 08:04 Wound - Elbow Gram Stain - Final 04/29/18 08:04 Wound - Elbow Wound Culture - Final 04/29/18 08:04 Wound - Elbow Acid Fast Bacilli Smear - Final No acid fast bacilli seen 04/29/18 08:04 Wound - Elbow Mycobacterial Culture - Pending 04/29/18 08:04 Wound - Elbow Acid Fast Bacilli Smear - Final No acid fast bacilli seen 04/29/18 08:04 Wound - Elbow Mycobacterial Culture - Pending Lab - Hematology Results 05/03/18 06:47 WBC 7.0 RBC 3.94 L Hgb 12.2 L Hct 36.1 L MCV 91.8 MCH 30.9 MCHC 33.6 RDW 13.8 Plt Count 180 D MPV 8.1 Neut % (Auto) 56.4 Lymph % (Auto) 27.2 [place] % (Auto) 12.0 H Eos % (Auto) 3.8 Baso % (Auto) 0.6 Neut # (Auto) 4.0 Lymph # (Auto) 1.9 [place] # (Auto) 0.8 Eos # (Auto) 0.3 Baso # (Auto) 0.0 WBC Differential . Differential Comment Auto diff final Lab - Chemistry Results 05/03/18 06:47 Creatinine 0.83 Estimated GFR Greater than 89 Imaging: ITS Impressions Elbow X-Ray 04/27/18 19:06 CONCLUSION: Open wound over extensor surface of the elbow with some soft tissue calcifications. Cortical surface lucency may represent some osteomyelitis involving the olecranon. Physical Exam: PHYSICAL EXAMINATION: GENERAL: No acute distress. HEENT: Head is atraumatic. Extraocular movement intact. Pupils reactive to light. No icterus. Oropharynx moist mucosa without lesions. LUNGS: Clear to auscultation. HEART: Regular S1 and S2, without murmurs. EXTREMITIES: The right elbow now has a wound VAC in place. The elbow wound appears dry. SKIN: No rash NEUROLOGIC: No gross focal finding. PSYCHIATRIC: Calm and cooperative. Assessment and Plan - Plan IMPRESSION: 1. Open nonhealing wound over the right olecranon. 2. Osteomyelitis involving the right olecranon with what appears to be exposed bone. The patient recently treated for infection of the right elbow. Eikenella recovered on previous culture. 3. Cellulitis involving the left elbow. RECOMMENDATIONS: Chnage to Rocephin Complete Rx with Rocephin Plan 6 weeks Abx form filled out Explained plan to the patient
--- NOTE | 2018-05-03 13:34 | P.DCO ---
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 [] May leave port accessed during therapy. [] May leave peripheral site accessed for duration of therapy. [x] If patient has SOB or respiratory distress, check oxygen saturation. If less than 90% or clinical signs of respiratory distress, administer oxygen at 2 L/min. via nasal cannula and notify physician. [x] Anaphylaxis/Reaction orders: * Stop infusion. * Keep IV line open with saline flush. * Notify physician. * Monitor vital signs every 15 minutes until symptoms resolve. * Check Oxygen saturation; Oxygen at 2 L/min. via nasal cannula if less than 90% or clinical signs of respiratory distress. * Administer diphenhydramine (Benadryl) 25 mg IV STAT, (unless patient has received as pre-med). May repeat once, if necessary. * Solu-Cortef 250 mg IVP over 30-60 seconds, use 100 mg vials for each dissolution. * Epinephrine (1mg/1 ml) 0.3 mg subcutaneously or IVP now with any signs of respiratory distress. * Check with physician for new additional pre-med orders if patient is re- challenged or re-treated. [x] May remove PICC line when treatment complete, after confirming with Physician. [x] If the patient is admitted to the hospital, the ED, or transferred via [facility] , complete transfer form including medication reconciliation order sheet. Weekly Labs: CBC w/diff, Creatinine, LFTs (Hepatic Function Test) (Labs every Monday - copy to Dr Sanders and Dr Diana Dougherty) Additional Information: Have patient fup with Dr Dougherty in 2-3 weeks Allergies shellfish derived Adverse Reaction (Intermediate, Verified 04/27/18 18:21) Nausea/Vomiting (1) Osteomyelitis Qualifiers: Osteomyelitis type: unspecified type Osteomyelitis location: ulna Laterality : right Qualified Code(s): M86.9 - Osteomyelitis, unspecified
--- NOTE | 2018-05-03 13:56 | P.DS ---
Date of admission: 04/27/18 22:22 Primary care physician: Mara Primary Care Physician Attending physician on discharge: Roman Puente Anticipated date of discharge: 05/03/18 Brief History from admission: 53-year-old male with a history of smoking, recent admission for right elbow olecranon bursitis status post debridement and IV antibiotics, with cultures growing Eikenella, followed by infectious disease. He was discharged 04/16, with wound care having completed antibiotics. He presents with a 3-day history of worsening constant sharp, nonradiating pain in the right olecranon, with new purulence. Denies any fevers, chest pain, shortness breath, nausea, vomiting DS: Diagnosis - Discharge Diagnosis (1) Osteomyelitis Status: Acute DS: Medications - Discharge Medications Prescriptions: amlodipine [Norvasc] 5 mg PO DAILY #30 tab oxycodone-acetaminophen 1 tab PO Q6H PRN #12 tab PRN Reason: Pain Scale 6 To 10 DS: Summary Hospital Course: 53-year-old male with past medical history of tobacco abuse who presented to the emergency department on 04/27 after recently being admitted for right elbow olecranon bursitis status post debridement and IV antibiotics, with cultures growing Eikenella, followed by infectious disease. Patient has recently been discharged on 04/16 after completing antibiotics however returned due to ongoing right elbow pain with purulent drainage. X-rays of the right elbow showed osteomyelitis of the olecranon. Patient also had an elevated ESR level 55. Patient was placed on empiric antibiotics and infectious disease consulted. Orthopedic services was also consulted and patient underwent irrigation and debridement on 04/[address] Lucio. Patient underwent PICC line placement 05/03 and infectious disease has provided antibiotic recommendations and duration. Orthopedic services Dr. Lucio has cleared patient for discharge and case management has assisted with arrangements for infusion clinic along with transportation. Patient is seen and examined this morning sitting on the side of the bed having lunch in no acute distress. He denies any fevers, chills, nausea, vomiting, diarrhea, cough, shortness of breath or chest pain. Is agreeable to going home and has spoken to case management regarding assistance with transportation to infusion clinic. Patient also understands that he will need to follow-up with Dr. Langley in his office. E- force checked no history for this patient found. Patient provided with 3 days worth of pain medication. - Time Spent with Patient Total time spent providing and/or coordinating discharge services: Less than 30 minutes - Quality: VTE Deep Vein Thrombosis/Pulmonary Embolism Present on Admission: No Exam Vital signs: Vital Signs 05/02/18 16:00 05/02/18 20:00 05/03/18 00:00 Temperature 98.1 F 98.0 F 98.4 F Pulse Rate 64 80 72 Respiratory Rate 18 19 20 Blood Pressure 130/72 158/98 H 143/82 H Pulse Oximetry 97 100 99 05/03/18 08:00 05/03/18 12:00 Temperature 97.7 F 97.4 F L Pulse Rate 60 66 Respiratory Rate 17 17 Blood Pressure 136/73 135/62 Pulse Oximetry 98 98 Intake & Output 05/02/18 05/03/18 05/03/18 18:59 06:59 18:59 Intake Total 2985 / 2985 1200 / 1200 1152 / 1152 Balance 2985 / 2985 1200 / 1200 1152 / 1152 Weight 79.8 kg Intake: IV 5 / 2025 1200 / 1200 1152 / 1152 NS Inj 1,000 ML @ 100 mls/hr IV 725 / 725 1000 / 1000 852 / 852 .CONT .Q10H [facility] Rx#:[id number] Ampicillin Inj 2,000 MG In NS 300 / 300 200 / 200 300 / 300 Inj 100 ML @ 400 mls/hr IV.SIG Q4H [facility] Rx#:[id number] LR 1000 mL Inj 1,000 ML @ 30 1000 / 1000 mls/hr IV.SIG .Q24H [facility] Rx#: [id number] Oral 960 / 960 Other: # Voids 3 Date of Last Bowel Movement 05/02/18 05/02/18 Narrative: GENERAL: Well-nourished, well-developed male resting in bed in no acute distress. SKIN: Warm and dry. HEENT: Atraumatic, pupils equal round reactive, mucous membranes pink and moist. HEART: Regular rate and rhythm with no murmurs appreciated LUNGS: Bilateral upper and lower lung squires clear. ABDOMEN: Soft, nontender, positive bowel sounds. EXTREMITIES: Right upper extremity wrapped in Fabian bandage. All 5 fingers with capillary refill less than 3 seconds, positive sensation, positive movement. NEURO: Awake and alert. Results Procedures completed during hospitalization: S/P Right elbow irrigation and debridement with debridement of olecranon by Dr Lucio on 04/29/18 Labs on day of discharge: Labs from last 24 hours 05/03/18 05/03/18 06:47 06:47 WBC 7.0 RBC 3.94 L Hgb 12.2 L Hct 36.1 L MCV 91.8 MCH 30.9 MCHC 33.6 RDW 13.8 Plt Count 180 D MPV 8.1 Neut % (Auto) 56.4 Lymph % (Auto) 27.2 [place] % (Auto) 12.0 H Eos % (Auto) 3.8 Baso % (Auto) 0.6 Neut # (Auto) 4.0 Lymph # (Auto) 1.9 [place] # (Auto) 0.8 Eos # (Auto) 0.3 Baso # (Auto) 0.0 WBC Differential . Differential Comment Auto diff final Creatinine 0.83 Estimated GFR Greater than 89 - Impressions ITS Impressions Elbow X-Ray 04/27/18 19:06 CONCLUSION: Open wound over extensor surface of the elbow with some soft tissue calcifications. Cortical surface lucency may represent some osteomyelitis involving the olecranon. Discharge Plan - Discharge Disposition Patient Disposition: 01 Discharge Home - Discharge Condition Condition: Good - Discharge Order Discharge Orders: Discharge Order (Routine); Ordered 05/03/18 Ordered By: Susie Deutsch - Physicians Team Primary Care Provider: Primary Care Buster,Mara Attending Provider: Roman Puente Other Providers: Travon Sanders MD ; Armando Lucio MD
[2018-05-03 16:16] VITALS: BP 134/60; PULSE 69; TEMP 97.7
[2018-05-04] MEDS ORDERED: Heparin Central Flush 100 UNIT/ML 5 ML Vial IV.FLUSH SCH (09:00)
== END 2018-05-03 18:03 | disposition home or self-care (01) ==
LOC: NEPE 15:30 → NEDA 22:22 → N07 23:25
PROVIDERS: ADMIT Hospitalist; ATTEND Hospitalist